=== PATIENT | female | born 1950 | race Caucasian/White ===

== ENCOUNTER → 2020-04-18 09:53 | Outpatient (BNV) | payer MEDICARE, SELFPAY | PROVIDERS: Visit Provider Internal Medicine Medical Oncology | DX: Z86.711 Personal history of pulmonary embolism (principal); Z79.01 Long term (current) use of anticoagulants | CPT/HCPCS: 99213; 99214 ==

== ENCOUNTER → 2020-04-25 15:58 | Outpatient (BNVA) | payer MEDICARE, SELFPAY | PROVIDERS: PCP Internal Medicine; Visit Provider Internal Medicine | DX: I26.99 Other pulmonary embolism without acute cor pulmonale (principal); Z51.81 Encounter for therapeutic drug level monitoring; Z79.01 Long term (current) use of anticoagulants | CPT/HCPCS: 85610; 99211 ==

== ENCOUNTER 2020-05-20 10:58 | Emergency (ER) | payer MEDICARE, SELFPAY ==
[2020-05-20 11:37] VITALS: BP 151/71; PULSE 77; RESP 16; TEMP 36.1; O2SAT 99; BMI 23.7
--- NOTE | 2020-05-20 11:57 | US_ITS ---
EXAMINATION: US VENOUS ULTRASOUND WITH DOPPLER LOWER EXTREMITY, RIGHT CLINICAL INFORMATION: Posterior knees/calf pain/swelling. COPD COMPARISON: None. TECHNIQUE: Ultrasound of the deep veins is performed from the hip to the calf with compression sonography and color and pulse Doppler assessment. Spectral analysis with color-flow imaging is performed. FINDINGS: There is normal venous compression and respiratory variation and augmented flow. The visualized common femoral vein, superficial femoral vein, profunda femoral vein, popliteal vein, and the trifurcation region shows no evidence of deep venous thrombosis. There is no significant popliteal fossa cyst. If the patient's symptoms persist, followup ultrasound in 5 days 7 days might be of value to exclude proximal propagation from a non-visualized calf vein. US/US venous duplex LE RT IMPRESSION: No DVT demonstrated in the right lower extremity.
--- NOTE | 2020-05-20 11:57 | XR_ITS ---
EXAMINATION: XR KNEE, RIGHT CLINICAL INFORMATION: Knee pain. COMPARISON: None TECHNIQUE: Four views of the right knee. FINDINGS: There is minimal loss of patellofemoral compartment joint space. Medial and lateral compartment joint space is normal. There is mild suprapatellar joint effusion. No visible acute fracture, dislocation or lytic process seen. There is minimal superior patellar and calcified. The soft tissues are normal XR/XR knee RT 4V IMPRESSION: Minimal suprapatellar joint effusion with anterior superior patellar enthesophyte. No visible acute fracture, dislocation or subluxation seen.
--- NOTE | 2020-05-20 12:25 | ED_ITS ---
HPI - Extremity Problem General Chief complaint: Extremity Injury, Lower <YULI Perry - Last Filed: 05/20/20 13:08> Stated complaint: rt knee pain,no inj <YULI Perry - Last Filed: 05/20/20 13:08> Time Seen by Provider: 05/20/20 11:55 <YULI Perry Last Filed: 05/20/20 13:08> Source: patient <YULI Perry Last Filed: 05/20/20 13:08> Mode of arrival: ambulatory <YULI Perry - Last Filed: 05/20/20 13:08> Limitations: no limitations <YULI Perry Last Filed: 05/20/20 13:08> History of Present Illness HPI Narrative: 69yoF c PMHx of diabetes and pulmonary embolism currently on 2.5 mg of warfarin daily and had her last INR checked on the 22 of April which was 3.0 presenting to the ED with complaints of pain and swelling to the right posterior knee no injury. Denies any other symptoms complaints or concerns related to this. <YULI Perry - Last Filed: 05/20/20 13:08> Related Data Home medications: Home Medications Medication Instructions Recorded Confirmed atorvastatin 80 mg PO BEDTIME 04/18/20 05/23/20 fenofibrate nanocrystallized 145 mg PO DAILY 04/18/20 05/23/20 isosorbide mononitrate 60 mg PO DAILY 04/18/20 05/23/20 losartan 100 mg PO DAILY 04/18/20 05/23/20 metformin 1,000 mg PO BID 04/18/20 05/23/20 metoprolol succinate 100 mg PO DAILY 04/18/20 05/23/20 icosapent ethyl 1 gram capsule 2 g PO BID cap 05/23/20 05/23/20 Previous Rx's Medication Instructions Recorded warfarin 5 mg tablet 5 mg PO DAILY #90 tab 04/25/20 acetaminophen-codeine 1 tab PO Q8H PRN #10 tab NS 05/20/20 <YULI Perry Last Filed: 05/20/20 13:08> Allergies/Adverse reactions: Allergies Allergy/AdvReac Type Severity Reaction Status Date / Time No Known Allergies Allergy Verified 05/23/20 09:51 <YULI Perry - Last Filed: 05/20/20 13:08> Review of Systems Review of Systems: Constitutional : No Fever, No Chills Cardiovascular : No Chest Pain, No SOB, No Dyspnea on Exertion, No Orthopnea, No Edema, No Palpitations Respiratory : No Cough, No Sputum, No Dyspnea Musculoskeletal : + joint pain, + Joint Swelling Skin : No Skin Lesions, No rash Neuro : No Weakness, No Paresthesias <YULI Perry - Last Filed: 05/20/20 13:08> Yes all other systems are reviewed and are negative <YULI Perry - Last Filed: 05/20/20 13:08> [facility] Past Medical History Attestation statement: The following information was validated with the patient. <YULI Perry - Last Filed: 05/20/20 13:08> Medical History: Medical History Diabetes H/O blood clots Kidney anomaly, congenital <YULI Perry - Last Filed: 05/20/20 13:08> Surgical History: Surgical History H/O hand surgery H/O: hysterectomy History of cholecystectomy History of tonsillectomy <YULI Perry - Last Filed: 05/20/20 13:08> Physical Exam Vital Signs: Vital Signs: Vital Signs Temp Pulse Resp BP Pulse Ox 05/20/20 11:37 97.0 F 77 16 151/71 H 99 Body Mass Index 23.7 vital signs have been reviewed as normal and appeared to be correct. Blood pressure normal. Heart rate normal. Respiration rate normal. Temperature normal. Oxygen saturation normal. <YULI Perry - Last Filed: 05/20/20 13:08> Vital Signs: Vital Signs Temp Pulse Resp BP Pulse Ox 05/20/20 11:37 97.0 F 77 16 151/71 H 99 Body Mass Index 23.7 <Brian Callahan MD - Last Filed: 05/31/20 01:26> Appearance: Alert. Oriented X3. No acute distress. Head: Normal external exam. Normocephalic. Eyes: PERRLA. EOMI. Conjunctiva and sclera normal. Eyelids normal. ENT: Moist mucous membranes. Neck: Normal inspection. Neck supple. FROM. No meningeal signs. CVS: Normal heart rate and rhythm. Heart sound normal. No murmurs noted. Pulses normal throughout. Respiratory: No respiratory distress. Painless inspiration. Breath sounds normal. No wheezes/rales/rhonchi noted. Chest nontender. No accessory muscle usage noted or decreased air movement noted. Back: Full range of motion noted. Skin: Skin warm and dry. Normal skin color. Normal skin turgor. No rashes/lesions/lacerations noted. Extremities: TTP of posterior Right knee. No lower extremity edema. Extremities exhibit normal range of motion. All other Extremities nontender. Neuro: Oriented X 3. No motor deficit. No sensory deficit. Reflexes normal. <YULI Perry - Last Filed: 05/20/20 13:08> Course Course Course Narrative: 12PM - 69yoF c PMHx of diabetes and pulmonary embolism currently on 2.5 mg of warfarin daily and had her last INR checked on the 22 of April which was 3.0 presenting to the ED with complaints of pain and swelling to the right posterior knee no injury. - Concern for DVT vs cyst vs strain - Plan: US and R knee xray then re-evaluate. <YULI Perry - Last Filed: 05/20/20 13:08> I have reviewed the chart <Brian Callahan MD - Last Filed: 05/31/20 01:26> Reevaluation(s) Reevaluation #1: Ultrasound negative for any DVT or any other acute processes. X-ray revealed small joint effusion with anterior superior patellar enthesophyte. - will DC home with symptomatic treatment along with instructions return if any new or worsening symptoms to follow-up with primary care provider. Patient understands agrees the plan. <YULI Perry - Last Filed: 05/20/20 13:08> Time: 13:08 <YULI Perry - Last Filed: 05/20/20 13:08> MDM - Extremity (Nontraumatic) Medical Records Attestation: I reviewed the patient's medical records. <YULI Perry - Last Filed: 05/20/20 13:08> Imaging Data right knee: Attestation: I personally reviewed and interpreted this imaging study as follows: <YULI Perry Last Filed: 05/20/20 13:08> Radiologist's impression: FINDINGS: There is minimal loss of patellofemoral compartment joint space. Medial and lateral compartment joint space is normal. There is mild suprapatellar joint effusion. No visible acute fracture, dislocation or lytic process seen. There is minimal superior patellar and calcified. The soft tissues are normal XR/XR knee RT 4V IMPRESSION: Minimal suprapatellar joint effusion with anterior superior patellar enthesophyte. No visible acute fracture, dislocation or subluxation seen. <YULI Perry Last Filed: 05/20/20 13:08> right leg venous ultrasound : Attestation: I personally reviewed and interpreted this imaging study as follows: <YULI Perry - Last Filed: 05/20/20 13:08> Radiologist's impression: FINDINGS: There is normal venous compression and respiratory variation and augmented flow. The visualized common femoral vein, superficial femoral vein, profunda femoral vein, popliteal vein, and the trifurcation region shows no evidence of deep venous thrombosis. There is no significant popliteal fossa cyst. If the patient's symptoms persist, followup ultrasound in 5 days 7 days might be of value to exclude proximal propagation from a non-visualized calf vein. US/US venous duplex LE RT IMPRESSION: No DVT demonstrated in the right lower extremity. <YULI Perry Last Filed: 05/20/20 13:08> Discharge Plan Discharge Clinical Impression: Bone spur, Joint effusion <YULI Perry Last Filed: 05/20/20 13:08> Patient Disposition: Home, Self-Care <YULI Perry Last Filed: 05/20/20 13:08> Instructions: Swollen Knee Joint (ED) <YULI Perry Last Filed: 05/20/20 13:08> Prescriptions: New acetaminophen-codeine 300-30 mg tablet 1 tab PO Q8H PRN (Reason: pain) Qty: 10 RF: 0 No Action atorvastatin 80 mg tablet 80 mg PO BEDTIME RF: 0 metoprolol succinate 100 mg tablet extended release 24 hr 100 mg PO DAILY RF: 0 isosorbide mononitrate 60 mg tablet extended release 24 hr 60 mg PO DAILY RF: 0 losartan 100 mg tablet 100 mg PO DAILY RF: 0 metformin 500 mg tablet extended release 24 hr 1,000 mg PO BID RF: 0 fenofibrate nanocrystallized 145 mg tablet 145 mg PO DAILY RF: 0 Vascepa 1 gram capsule 2 g PO BID RF: 0 warfarin 5 mg tablet 5 mg PO DAILY Qty: 90 RF: 0 <YULI Perry - Last Filed: 05/20/20 13:08> Referrals: Juan Francisco Stuart MD [Primary Care Provider] - 2 days <YULI Perry - Last Filed: 05/20/20 13:08> Interventions: ED Discharge Assessment Last Done: 05/20/20 13:19 <YULI Perry - Last Filed: 05/20/20 13:08> Discharge Date/Time: 05/20/20 13:19 <YULI Perry - Last Filed: 05/20/20 13:08> Print Language: [place] <YULI Perry - Last Filed: 05/20/20 13:08>
== END 2020-05-20 13:19 | disposition home or self-care (01) ==
PROVIDERS: Emergency Provider Emergency Medicine; PCP Internal Medicine
DX: M25.561 Pain in right knee (principal); R60.0 Localized edema; Z79.899 Other long term (current) drug therapy; Z79.01 Long term (current) use of anticoagulants; Z86.711 Personal history of pulmonary embolism
CPT/HCPCS: 73564; 93971; 99283; 99284

== ENCOUNTER → 2020-05-23 09:50 | Outpatient (BNVA) | payer MEDICARE, SELFPAY | PROVIDERS: PCP Internal Medicine; Visit Provider Internal Medicine | DX: I26.99 Other pulmonary embolism without acute cor pulmonale (principal); Z51.81 Encounter for therapeutic drug level monitoring; Z79.01 Long term (current) use of anticoagulants | CPT/HCPCS: 85610; 99211 ==

== ENCOUNTER → 2020-06-20 10:02 | Outpatient (BNVA) | payer MEDICARE, SELFPAY | PROVIDERS: PCP Internal Medicine; Visit Provider Internal Medicine | DX: I26.99 Other pulmonary embolism without acute cor pulmonale (principal); Z51.81 Encounter for therapeutic drug level monitoring; Z79.01 Long term (current) use of anticoagulants | CPT/HCPCS: 85610; 99211 ==

== ENCOUNTER 2020-07-08 09:27 | Outpatient (REF) | payer MEDICARE, SELFPAY ==
[2020-07-08 10:43] LABS: Cholesterol 137 mg/dL; HDL Cholesterol 23 mg/dL; Triglycerides 521 mg/dL
== END 2020-07-08 09:28 | disposition home or self-care (01) ==
LOC: HO.LAB 09:27
PROVIDERS: PCP Internal Medicine; Visit Provider Internal Medicine Cardiovascular Disease
DX: I25.10 Atherosclerotic heart disease of native coronary artery without angina pectoris (principal)
CPT/HCPCS: 80061

== ENCOUNTER → 2020-07-09 12:46 | Outpatient (BNVA) | payer MEDICARE, SELFPAY | PROVIDERS: PCP Internal Medicine; Visit Provider Internal Medicine Cardiovascular Disease | DX: I25.10 Atherosclerotic heart disease of native coronary artery without angina pectoris (principal); E78.2 Mixed hyperlipidemia; E11.9 Type 2 diabetes mellitus without complications; F17.200 Nicotine dependence, unspecified, uncomplicated; Z79.01 Long term (current) use of anticoagulants; Z86.718 Personal history of other venous thrombosis and embolism | CPT/HCPCS: 99212 ==

== ENCOUNTER → 2020-07-25 09:53 | Outpatient (BNVA) | payer MEDICARE, SELFPAY | PROVIDERS: PCP Internal Medicine; Visit Provider Internal Medicine | DX: I26.99 Other pulmonary embolism without acute cor pulmonale (principal); Z79.01 Long term (current) use of anticoagulants; Z51.81 Encounter for therapeutic drug level monitoring | CPT/HCPCS: 85610; 99211 ==

== ENCOUNTER → 2020-08-22 09:51 | Outpatient (BNVA) | payer MEDICARE, SELFPAY | PROVIDERS: PCP Internal Medicine; Visit Provider Internal Medicine | DX: I26.99 Other pulmonary embolism without acute cor pulmonale (principal); Z51.81 Encounter for therapeutic drug level monitoring; Z79.01 Long term (current) use of anticoagulants | CPT/HCPCS: 85610; 99211 ==

== ENCOUNTER → 2020-09-19 09:41 | Outpatient (BNVA) | payer MEDICARE, SELFPAY | PROVIDERS: PCP Internal Medicine; Visit Provider Internal Medicine | DX: I26.99 Other pulmonary embolism without acute cor pulmonale (principal); Z51.81 Encounter for therapeutic drug level monitoring; Z79.01 Long term (current) use of anticoagulants | CPT/HCPCS: 85610; 99211 ==

== ENCOUNTER → 2020-10-03 10:03 | Outpatient (BNVA) | payer MEDICARE, SELFPAY | PROVIDERS: PCP Internal Medicine; Visit Provider Internal Medicine | DX: I26.99 Other pulmonary embolism without acute cor pulmonale (principal); Z51.81 Encounter for therapeutic drug level monitoring; Z79.01 Long term (current) use of anticoagulants | CPT/HCPCS: 85610; 99211 ==

== ENCOUNTER → 2020-10-31 09:58 | Outpatient (BNVA) | payer MEDICARE, SELFPAY | PROVIDERS: PCP Internal Medicine; Visit Provider Internal Medicine | DX: I26.99 Other pulmonary embolism without acute cor pulmonale (principal); Z79.01 Long term (current) use of anticoagulants; Z51.81 Encounter for therapeutic drug level monitoring | CPT/HCPCS: 85610; 99211 ==

== ENCOUNTER → 2020-11-28 09:53 | Outpatient (BNVA) | payer MEDICARE, SELFPAY | PROVIDERS: PCP Internal Medicine; Visit Provider Internal Medicine | DX: I26.99 Other pulmonary embolism without acute cor pulmonale (principal); Z51.81 Encounter for therapeutic drug level monitoring; Z79.01 Long term (current) use of anticoagulants | CPT/HCPCS: 85610; 99211 ==

== ENCOUNTER 2020-12-05 14:42 | Outpatient (REF) | payer MEDICARE, SELFPAY ==
[2020-12-05 16:29] LABS: Alanine Aminotransferase 21 U/L (0-31); Albumin Level 4.3 g/dL (3.5-5.0); Alkaline Phosphatase 58 U/L (39-117); Anion Gap 13 (12-20); Aspartate Amino Transferase 27 U/L (5-31); Bilirubin Total 0.7 mg/dL (0.0-1.0); Blood Urea Nitrogen 16 mg/dL (9-16); Calcium 9.4 mg/dL (8.4-10.2); Carbon Dioxide 24 mmol/L (22-29); Chloride 102 mmol/L (96-108); Cholesterol 144 mg/dL; Estimated Glomerular Filt Rate > 60; Glucose Random 83 mg/dL (60-115); HDL Cholesterol 24 mg/dL; Potassium 4.4 mmol/L (3.3-5.1); Sodium 135 mmol/L (135-145); Total Protein 7.3 g/dL (6.5-8.0); Triglycerides 664 mg/dL
[2020-12-05 17:11] LABS: Creatinine Urine 84.99 mg/dL; Microalbum/Creatinine Ratio Ur 5.8 ug/mg cr
[2020-12-06 04:05] LABS: Estimated Average Glucose 103 mg/dL; Hemoglobin A1c % 5.2 %
[2020-12-06 12:12] LABS: LDL Cholesterol Direct 40 mg/dL (<100)
[2020-12-10 21:22] LABS: Apolipoprotein B 88 mg/dL (<90)
[2020-12-10 22:16] LABS: Lipoprotein A <10 nmol/L (<75)
== END 2020-12-05 14:43 | disposition home or self-care (01) ==
LOC: HO.LAB 14:42
PROVIDERS: PCP Internal Medicine; Visit Provider Internal Medicine
DX: E11.9 Type 2 diabetes mellitus without complications (principal); E78.1 Pure hyperglyceridemia; E78.5 Hyperlipidemia, unspecified; I10 Essential (primary) hypertension; Z79.01 Long term (current) use of anticoagulants; Z79.899 Other long term (current) drug therapy
CPT/HCPCS: 36415; 80053; 80061; 82043; 82172; 82947; 83036; 83695; 83721; 99202

== ENCOUNTER → 2020-12-11 10:02 | Outpatient (BNVA) | payer MEDICARE, SELFPAY | PROVIDERS: PCP Internal Medicine; Visit Provider Internal Medicine | DX: I26.99 Other pulmonary embolism without acute cor pulmonale (principal); Z51.81 Encounter for therapeutic drug level monitoring; Z79.01 Long term (current) use of anticoagulants | CPT/HCPCS: 85610; 99211 ==

== ENCOUNTER → 2020-12-25 09:59 | Outpatient (BNVA) | payer MEDICARE, SELFPAY | PROVIDERS: PCP Internal Medicine; Visit Provider Internal Medicine | DX: I26.99 Other pulmonary embolism without acute cor pulmonale (principal); Z51.81 Encounter for therapeutic drug level monitoring; Z79.01 Long term (current) use of anticoagulants | CPT/HCPCS: 85610; 99211 ==

== ENCOUNTER → 2021-01-07 09:50 | Outpatient (BNVA) | payer MEDICARE, SELFPAY | PROVIDERS: PCP Internal Medicine; Referring Provider Internal Medicine; Visit Provider Internal Medicine Cardiovascular Disease | DX: I25.10 Atherosclerotic heart disease of native coronary artery without angina pectoris (principal); E78.2 Mixed hyperlipidemia | CPT/HCPCS: 93005; 99212 ==

== ENCOUNTER → 2021-01-16 09:52 | Outpatient (BNVA) | payer MEDICARE, SELFPAY | PROVIDERS: PCP Internal Medicine; Visit Provider Internal Medicine | DX: I26.99 Other pulmonary embolism without acute cor pulmonale (principal); Z51.81 Encounter for therapeutic drug level monitoring; Z79.01 Long term (current) use of anticoagulants | CPT/HCPCS: 85610; 99211 ==

== ENCOUNTER → 2021-02-17 09:59 | Outpatient (BNVA) | payer MEDICARE, SELFPAY | PROVIDERS: PCP Internal Medicine; Visit Provider Internal Medicine | DX: I26.99 Other pulmonary embolism without acute cor pulmonale (principal); Z51.81 Encounter for therapeutic drug level monitoring; Z79.01 Long term (current) use of anticoagulants | CPT/HCPCS: 85610; 99211 ==

== ENCOUNTER → 2021-02-21 09:11 | Outpatient (BNVA) | payer MEDICARE, SELFPAY | PROVIDERS: PCP Internal Medicine; Visit Provider Internal Medicine | DX: I26.99 Other pulmonary embolism without acute cor pulmonale (principal); Z51.81 Encounter for therapeutic drug level monitoring; Z79.01 Long term (current) use of anticoagulants | CPT/HCPCS: 85610; 99211 ==

== ENCOUNTER → 2021-02-28 10:00 | Outpatient (BNVA) | payer MEDICARE, SELFPAY | PROVIDERS: PCP Internal Medicine; Visit Provider Internal Medicine | DX: I26.99 Other pulmonary embolism without acute cor pulmonale (principal); Z51.81 Encounter for therapeutic drug level monitoring; Z79.01 Long term (current) use of anticoagulants | CPT/HCPCS: 85610; 99211 ==

== ENCOUNTER → 2021-03-14 09:59 | Outpatient (BNVA) | payer MEDICARE, SELFPAY | PROVIDERS: PCP Internal Medicine; Visit Provider Internal Medicine | DX: I26.99 Other pulmonary embolism without acute cor pulmonale (principal); Z51.81 Encounter for therapeutic drug level monitoring; Z79.01 Long term (current) use of anticoagulants | CPT/HCPCS: 85610; 99211 ==

== ENCOUNTER → 2021-03-21 10:11 | Outpatient (BNVA) | payer MEDICARE, SELFPAY | PROVIDERS: PCP Internal Medicine; Visit Provider Internal Medicine | DX: I26.99 Other pulmonary embolism without acute cor pulmonale (principal); Z51.81 Encounter for therapeutic drug level monitoring; Z79.01 Long term (current) use of anticoagulants | CPT/HCPCS: 85610; 99211 ==

== ENCOUNTER → 2021-04-04 09:56 | Outpatient (BNVA) | payer MEDICARE, SELFPAY | PROVIDERS: PCP Internal Medicine; Visit Provider Internal Medicine | DX: I26.99 Other pulmonary embolism without acute cor pulmonale (principal); Z51.81 Encounter for therapeutic drug level monitoring; Z79.01 Long term (current) use of anticoagulants | CPT/HCPCS: 85610; 99211 ==

== ENCOUNTER → 2021-04-17 10:29 | Outpatient (BNVA) | payer MEDICARE, SELFPAY | PROVIDERS: PCP Internal Medicine; Visit Provider Internal Medicine | DX: I26.99 Other pulmonary embolism without acute cor pulmonale (principal); Z51.81 Encounter for therapeutic drug level monitoring; Z79.01 Long term (current) use of anticoagulants | CPT/HCPCS: 85610; 99211 ==

== ENCOUNTER → 2021-05-01 10:25 | Outpatient (BNVA) | payer MEDICARE, SELFPAY | PROVIDERS: PCP Internal Medicine; Visit Provider Internal Medicine | DX: I26.99 Other pulmonary embolism without acute cor pulmonale (principal); Z51.81 Encounter for therapeutic drug level monitoring; Z79.01 Long term (current) use of anticoagulants | CPT/HCPCS: 85610; 99211 ==

== ENCOUNTER → 2021-05-15 10:33 | Outpatient (BNVA) | payer MEDICARE, SELFPAY | PROVIDERS: PCP Internal Medicine; Visit Provider Internal Medicine | DX: I26.99 Other pulmonary embolism without acute cor pulmonale (principal); Z51.81 Encounter for therapeutic drug level monitoring; Z79.01 Long term (current) use of anticoagulants | CPT/HCPCS: 85610; 99211 ==

== ENCOUNTER → 2021-05-20 09:27 | Outpatient (BNVA) | payer MEDICARE, SELFPAY | PROVIDERS: PCP Internal Medicine; Visit Provider Internal Medicine | DX: I26.99 Other pulmonary embolism without acute cor pulmonale (principal); Z51.81 Encounter for therapeutic drug level monitoring; Z79.01 Long term (current) use of anticoagulants | CPT/HCPCS: 85610; 99211 ==

== ENCOUNTER → 2021-06-24 09:05 | Outpatient (BNVA) | payer MEDICARE, SELFPAY | PROVIDERS: PCP Internal Medicine; Visit Provider Internal Medicine | DX: I25.10 Atherosclerotic heart disease of native coronary artery without angina pectoris (principal); E78.2 Mixed hyperlipidemia; I26.99 Other pulmonary embolism without acute cor pulmonale; Z79.899 Other long term (current) drug therapy; Z51.81 Encounter for therapeutic drug level monitoring; Z79.01 Long term (current) use of anticoagulants | CPT/HCPCS: 85610; 99211; 99212 ==

== ENCOUNTER 2021-07-04 09:00 | Outpatient (REF) | payer MEDICARE, SELFPAY ==
[2021-07-04 10:29] LABS: Cholesterol 161 mg/dL; HDL Cholesterol 24 mg/dL; Triglycerides 605 mg/dL
== END 2021-07-04 09:01 | disposition home or self-care (01) ==
LOC: HO.LAB 09:00
PROVIDERS: PCP Internal Medicine; Visit Provider Internal Medicine Cardiovascular Disease
DX: I25.10 Atherosclerotic heart disease of native coronary artery without angina pectoris (principal); E78.2 Mixed hyperlipidemia
CPT/HCPCS: 36415; 80061

== ENCOUNTER → 2021-07-22 08:52 | Outpatient (BNVA) | payer MEDICARE, SELFPAY | PROVIDERS: PCP Internal Medicine; Visit Provider Internal Medicine | DX: I26.99 Other pulmonary embolism without acute cor pulmonale (principal); Z51.81 Encounter for therapeutic drug level monitoring; Z79.01 Long term (current) use of anticoagulants | CPT/HCPCS: 85610; 99211 ==

== ENCOUNTER 2021-07-24 09:47 | Outpatient (REF) | payer MEDICARE, SELFPAY ==
[2021-07-24 10:41] LABS: IDNOW Serial# 16C4AD1C
[2021-07-24 10:42] LABS: COVID-19 Test Negative (Negative)
== END 2021-07-24 09:48 | disposition home or self-care (01) ==
LOC: HO.LAB 09:47
PROVIDERS: Visit Provider Internal Medicine
DX: Z20.822 Contact with and (suspected) exposure to COVID-19 (principal)
CPT/HCPCS: 87635; C9803

== ENCOUNTER → 2021-07-29 09:50 | Outpatient (BNVA) | payer MEDICARE, SELFPAY | PROVIDERS: PCP Internal Medicine; Visit Provider Internal Medicine | DX: I26.99 Other pulmonary embolism without acute cor pulmonale (principal); Z51.81 Encounter for therapeutic drug level monitoring; Z79.01 Long term (current) use of anticoagulants | CPT/HCPCS: 85610; 99211 ==

== ENCOUNTER → 2021-08-12 09:53 | Outpatient (BNVA) | payer MEDICARE, SELFPAY | PROVIDERS: PCP Internal Medicine; Visit Provider Internal Medicine | DX: I26.99 Other pulmonary embolism without acute cor pulmonale (principal); Z51.81 Encounter for therapeutic drug level monitoring; Z79.01 Long term (current) use of anticoagulants | CPT/HCPCS: 85610; 99211 ==

== ENCOUNTER → 2021-08-26 10:17 | Outpatient (BNVA) | payer MEDICARE, SELFPAY | PROVIDERS: PCP Internal Medicine; Visit Provider Internal Medicine | DX: I26.99 Other pulmonary embolism without acute cor pulmonale (principal); Z51.81 Encounter for therapeutic drug level monitoring; Z79.01 Long term (current) use of anticoagulants | CPT/HCPCS: 85610; 99211 ==

== ENCOUNTER 2021-09-11 11:09 | Outpatient (REF) | payer MEDICARE, SELFPAY ==
--- NOTE | ~2021-09-11 | CT_ITS ---
EXAMINATION: CT CHEST SCREENING CLINICAL INFORMATION: Nicotine dependence. Current smoker. 55-pack year history. COMPARISON: Previous chest CT, most recent February 2020. TECHNIQUE: Multidetector volumetric CT imaging of the chest is performed without contrast using low dose technique. Additional 2D coronal and sagittal reformatted images and axial 3D maximum intensity projection (MIP) images are generated on the CT workstation. This CT examination was performed using dose optimization techniques as appropriate, variously including the following: *Automated exposure control *Adjustment of mA and/or kV according to patient size (this includes techniques or standardized protocols for targeted exams where dose is matched to indication/reason for exam; i.e. extremities or head) *Use of iterative reconstruction technique DLP: 48 mGy-cm FINDINGS: LUNGS: There is evidence of severe emphysema. There are scattered areas of cystic change and increased ground-glass attenuation seen throughout the lungs, predominantly peripherally and at the lung bases. This appears increased from previous exam. There is a 3 mm right upper lobe nodule axial image 184 series 5 and 197 series 5. There is a small 2 mm peripheral or subpleural right upper lobe nodule axial image 203 series 5. There is a 2 mm calcified right upper lobe nodule axial image 213 series 5. In retrospect, these do not appear appreciably changed. No endobronchial or endotracheal lesion is seen. MEDIASTINUM: There are small mediastinal lymph nodes. No enlarged lymph nodes are seen. There is [id number] coronary artery calcification. The heart does not appear enlarged. There is no pericardial effusion. The thoracic aorta is normal in caliber. PLEURA: There is no pleural effusion. No pleural mass or thickening. AXILLA: No lymphadenopathy. UPPER ABDOMEN: Left kidney appears atrophic. There are small bilateral renal calcifications suggestive of stones. The spleen appears prominent. OSSEOUS STRUCTURES: Unremarkable. CT/CT lung screening IMPRESSION: Severe emphysema. Innumerable cystic and ground-glass attenuation areas seen throughout the lungs, greatest peripherally and in the lower lungs. This appears increased from most recent exam from 2019. Small right upper lobe nodules that are stable. Coronary artery calcification. Stable abdominal findings. ASSESSMENT: Lung-RADS category 2: Benign. RECOMMENDATION: Annual low-dose chest CT follow-up recommended.
== END 2021-09-11 11:10 | disposition home or self-care (01) ==
LOC: HO.CT 11:09
PROVIDERS: PCP Internal Medicine; Visit Provider Physician Assistant Medical
DX: Z12.2 Encounter for screening for malignant neoplasm of respiratory organs (principal); F17.210 Nicotine dependence, cigarettes, uncomplicated
CPT/HCPCS: 71271

== ENCOUNTER → 2021-09-16 10:30 | Outpatient (BNVA) | payer MEDICARE, SELFPAY | PROVIDERS: PCP Internal Medicine; Visit Provider Internal Medicine | DX: I26.99 Other pulmonary embolism without acute cor pulmonale (principal); Z51.81 Encounter for therapeutic drug level monitoring; Z79.01 Long term (current) use of anticoagulants | CPT/HCPCS: 85610; 99211 ==

== ENCOUNTER → 2021-10-10 09:50 | Outpatient (BNVA) | payer MEDICARE, SELFPAY | PROVIDERS: PCP Internal Medicine; Visit Provider Internal Medicine | DX: I26.99 Other pulmonary embolism without acute cor pulmonale (principal); Z51.81 Encounter for therapeutic drug level monitoring; Z79.01 Long term (current) use of anticoagulants | CPT/HCPCS: 85610; 99211 ==

== ENCOUNTER → 2021-11-07 10:08 | Outpatient (BNVA) | payer MEDICARE, SELFPAY | PROVIDERS: PCP Internal Medicine; Visit Provider Internal Medicine | DX: I26.99 Other pulmonary embolism without acute cor pulmonale (principal); Z79.01 Long term (current) use of anticoagulants; Z51.81 Encounter for therapeutic drug level monitoring | CPT/HCPCS: 85610; 99211 ==

== ENCOUNTER → 2021-12-05 10:02 | Outpatient (BNVA) | payer MEDICARE, SELFPAY | PROVIDERS: PCP Internal Medicine; Visit Provider Internal Medicine | DX: I26.99 Other pulmonary embolism without acute cor pulmonale (principal); Z79.01 Long term (current) use of anticoagulants; Z51.81 Encounter for therapeutic drug level monitoring | CPT/HCPCS: 85610; 99211 ==

== ENCOUNTER → 2022-01-02 10:00 | Outpatient (BNVA) | payer MEDICARE, SELFPAY | PROVIDERS: PCP Internal Medicine; Visit Provider Internal Medicine | DX: I26.99 Other pulmonary embolism without acute cor pulmonale (principal); Z79.01 Long term (current) use of anticoagulants; Z51.81 Encounter for therapeutic drug level monitoring | CPT/HCPCS: 85610; G0248 ==

== ENCOUNTER → 2022-02-19 09:04 | Outpatient (BNVA) | payer MEDICARE, SELFPAY | PROVIDERS: PCP Internal Medicine; Visit Provider Internal Medicine | DX: I26.99 Other pulmonary embolism without acute cor pulmonale (principal); Z79.01 Long term (current) use of anticoagulants; Z51.81 Encounter for therapeutic drug level monitoring | CPT/HCPCS: Q3014 ==

== ENCOUNTER → 2022-03-12 13:43 | Outpatient (BNVA) | payer MEDICARE, SELFPAY | PROVIDERS: PCP Internal Medicine; Visit Provider Internal Medicine | DX: I26.99 Other pulmonary embolism without acute cor pulmonale (principal); Z79.01 Long term (current) use of anticoagulants; Z51.81 Encounter for therapeutic drug level monitoring | CPT/HCPCS: Q3014 ==

== ENCOUNTER 2022-03-30 12:20 | Outpatient (REF) | payer MEDICARE, SELFPAY ==
[2022-03-30 13:17] LABS: Anion Gap 14 (12-20); Blood Urea Nitrogen 14 mg/dL (9-16); Calcium 9.4 mg/dL (8.4-10.2); Carbon Dioxide 25 mmol/L (22-29); Chloride 99 mmol/L (96-108); Estimated Glomerular Filt Rate > 60; Potassium 4.3 mmol/L (3.3-5.1); Sodium 134 mmol/L (135-145)
== END 2022-03-30 12:21 | disposition home or self-care (01) ==
LOC: HO.LAB 12:20
PROVIDERS: PCP Internal Medicine; Visit Provider Internal Medicine Nephrology
DX: N26.1 Atrophy of kidney (terminal) (principal); I10 Essential (primary) hypertension
CPT/HCPCS: 36415; 80051; 82310; 82565; 84520

== ENCOUNTER → 2022-04-23 09:28 | Outpatient (BNVA) | payer MEDICARE, SELFPAY | PROVIDERS: PCP Internal Medicine; Visit Provider Internal Medicine | DX: I26.99 Other pulmonary embolism without acute cor pulmonale (principal); Z79.01 Long term (current) use of anticoagulants; Z51.81 Encounter for therapeutic drug level monitoring | CPT/HCPCS: Q3014 ==

== ENCOUNTER → 2022-05-25 10:20 | Outpatient (BNVA) | payer MEDICARE, SELFPAY | PROVIDERS: PCP Internal Medicine; Visit Provider Internal Medicine | DX: I26.99 Other pulmonary embolism without acute cor pulmonale (principal); Z79.01 Long term (current) use of anticoagulants; Z51.81 Encounter for therapeutic drug level monitoring | CPT/HCPCS: 85610; 99211 ==

== ENCOUNTER → 2022-06-29 09:58 | Outpatient (BNVA) | payer MEDICARE, SELFPAY | PROVIDERS: PCP Internal Medicine; Referring Provider Internal Medicine; Visit Provider Internal Medicine Cardiovascular Disease | DX: I25.10 Atherosclerotic heart disease of native coronary artery without angina pectoris (principal); E78.2 Mixed hyperlipidemia; Z79.899 Other long term (current) drug therapy | CPT/HCPCS: 93005; 99212 ==

== ENCOUNTER → 2022-07-09 11:06 | Outpatient (BNVA) | payer MEDICARE, SELFPAY | PROVIDERS: PCP Internal Medicine; Visit Provider Internal Medicine | DX: Z79.01 Long term (current) use of anticoagulants (principal) ==

== ENCOUNTER → 2022-07-23 09:35 | Outpatient (BNVA) | payer MEDICARE, SELFPAY | PROVIDERS: PCP Internal Medicine; Visit Provider Internal Medicine | DX: Z79.01 Long term (current) use of anticoagulants (principal) ==

== ENCOUNTER 2022-07-25 15:53 | Emergency (ER) | payer MEDICARE, SELFPAY ==
--- NOTE | ~2022-07-25 | XR_ITS ---
EXAMINATION: XR shoulder LT min 2V, XR ribs LT min 3V w CXR1V, XR humerus LT, XR elbow LT 2V CLINICAL INFORMATION: Reason for Exam fall, pain COMPARISON: None. TECHNIQUE: AP chest, 3 view series left ribs; 2 view series left elbow; AP and lateral radiographs of the left humerus; 3 view series left shoulder. FINDINGS: Left shoulder and left humerus: A displaced fracture of the greater tubercle of the left humeral head is noted. Vague transverse lucency and focal cortical irregularity of the medial surgical neck of the humerus is present suspicious for a minimally displaced transverse fracture of the humeral neck. No associated erosive osseous lesions. Lateral humeral alignment is grossly normal. The acromioclavicular joint spacing and alignment are normal. The visualized left ribs are intact. Left elbow: Left elbow radiographs are suboptimally oriented. No definitive fractures or gross subluxations making allowances for suboptimal images. Mild enthesopathic changes at the olecranon. Left rib series: No left rib fractures or suspicious left rib lesions identified. CHEST: Clip heart mild aortic calcific atherosclerosis. No effusions or pneumothoraces. No focal pulmonary consolidation. Normal pattern of pulmonary vasculature. XR/XR humerus LT IMPRESSION: Left shoulder and left humerus: 1. Displaced fracture of the greater tubercle of the left humeral head. 2. Findings suspicious for a minimally displaced transverse fracture of the surgical neck of the humerus. LEFT ELBOW: 1. Suboptimal images of the left elbow secondary to suboptimal radiographic positioning/orientation. No gross fractures or malalignments identified. If clinical concern is present for possible minimally displaced fractures or subluxations of the left elbow, recommend repeat radiographs of the left elbow. Chest and left rib series: 1. No acute cardiopulmonary abnormalities. 2. No left rib fractures identified.
--- NOTE | ~2022-07-25 | XR_ITS ---
EXAMINATION: XR shoulder LT min 2V, XR ribs LT min 3V w CXR1V, XR humerus LT, XR elbow LT 2V CLINICAL INFORMATION: Reason for Exam fall, pain COMPARISON: None. TECHNIQUE: AP chest, 3 view series left ribs; 2 view series left elbow; AP and lateral radiographs of the left humerus; 3 view series left shoulder. FINDINGS: Left shoulder and left humerus: A displaced fracture of the greater tubercle of the left humeral head is noted. Vague transverse lucency and focal cortical irregularity of the medial surgical neck of the humerus is present suspicious for a minimally displaced transverse fracture of the humeral neck. No associated erosive osseous lesions. Lateral humeral alignment is grossly normal. The acromioclavicular joint spacing and alignment are normal. The visualized left ribs are intact. Left elbow: Left elbow radiographs are suboptimally oriented. No definitive fractures or gross subluxations making allowances for suboptimal images. Mild enthesopathic changes at the olecranon. Left rib series: No left rib fractures or suspicious left rib lesions identified. CHEST: Clip heart mild aortic calcific atherosclerosis. No effusions or pneumothoraces. No focal pulmonary consolidation. Normal pattern of pulmonary vasculature. XR/XR ribs LT min 3V w CXR1V IMPRESSION: Left shoulder and left humerus: 1. Displaced fracture of the greater tubercle of the left humeral head. 2. Findings suspicious for a minimally displaced transverse fracture of the surgical neck of the humerus. LEFT ELBOW: 1. Suboptimal images of the left elbow secondary to suboptimal radiographic positioning/orientation. No gross fractures or malalignments identified. If clinical concern is present for possible minimally displaced fractures or subluxations of the left elbow, recommend repeat radiographs of the left elbow. Chest and left rib series: 1. No acute cardiopulmonary abnormalities. 2. No left rib fractures identified.
--- NOTE | ~2022-07-25 | XR_ITS ---
EXAMINATION: XR shoulder LT min 2V, XR ribs LT min 3V w CXR1V, XR humerus LT, XR elbow LT 2V CLINICAL INFORMATION: Reason for Exam fall, pain COMPARISON: None. TECHNIQUE: AP chest, 3 view series left ribs; 2 view series left elbow; AP and lateral radiographs of the left humerus; 3 view series left shoulder. FINDINGS: Left shoulder and left humerus: A displaced fracture of the greater tubercle of the left humeral head is noted. Vague transverse lucency and focal cortical irregularity of the medial surgical neck of the humerus is present suspicious for a minimally displaced transverse fracture of the humeral neck. No associated erosive osseous lesions. Lateral humeral alignment is grossly normal. The acromioclavicular joint spacing and alignment are normal. The visualized left ribs are intact. Left elbow: Left elbow radiographs are suboptimally oriented. No definitive fractures or gross subluxations making allowances for suboptimal images. Mild enthesopathic changes at the olecranon. Left rib series: No left rib fractures or suspicious left rib lesions identified. CHEST: Clip heart mild aortic calcific atherosclerosis. No effusions or pneumothoraces. No focal pulmonary consolidation. Normal pattern of pulmonary vasculature. XR/XR elbow LT 2V IMPRESSION: Left shoulder and left humerus: 1. Displaced fracture of the greater tubercle of the left humeral head. 2. Findings suspicious for a minimally displaced transverse fracture of the surgical neck of the humerus. LEFT ELBOW: 1. Suboptimal images of the left elbow secondary to suboptimal radiographic positioning/orientation. No gross fractures or malalignments identified. If clinical concern is present for possible minimally displaced fractures or subluxations of the left elbow, recommend repeat radiographs of the left elbow. Chest and left rib series: 1. No acute cardiopulmonary abnormalities. 2. No left rib fractures identified.
--- NOTE | ~2022-07-25 | XR_ITS ---
EXAMINATION: XR shoulder LT min 2V, XR ribs LT min 3V w CXR1V, XR humerus LT, XR elbow LT 2V CLINICAL INFORMATION: Reason for Exam fall, pain COMPARISON: None. TECHNIQUE: AP chest, 3 view series left ribs; 2 view series left elbow; AP and lateral radiographs of the left humerus; 3 view series left shoulder. FINDINGS: Left shoulder and left humerus: A displaced fracture of the greater tubercle of the left humeral head is noted. Vague transverse lucency and focal cortical irregularity of the medial surgical neck of the humerus is present suspicious for a minimally displaced transverse fracture of the humeral neck. No associated erosive osseous lesions. Lateral humeral alignment is grossly normal. The acromioclavicular joint spacing and alignment are normal. The visualized left ribs are intact. Left elbow: Left elbow radiographs are suboptimally oriented. No definitive fractures or gross subluxations making allowances for suboptimal images. Mild enthesopathic changes at the olecranon. Left rib series: No left rib fractures or suspicious left rib lesions identified. CHEST: Clip heart mild aortic calcific atherosclerosis. No effusions or pneumothoraces. No focal pulmonary consolidation. Normal pattern of pulmonary vasculature. XR/XR shoulder LT min 2V IMPRESSION: Left shoulder and left humerus: 1. Displaced fracture of the greater tubercle of the left humeral head. 2. Findings suspicious for a minimally displaced transverse fracture of the surgical neck of the humerus. LEFT ELBOW: 1. Suboptimal images of the left elbow secondary to suboptimal radiographic positioning/orientation. No gross fractures or malalignments identified. If clinical concern is present for possible minimally displaced fractures or subluxations of the left elbow, recommend repeat radiographs of the left elbow. Chest and left rib series: 1. No acute cardiopulmonary abnormalities. 2. No left rib fractures identified.
[2022-07-25 16:01] VITALS: BP 160/61; PULSE 100; RESP 18; TEMP 36.1; O2SAT 99; BMI 23.0
--- NOTE | 2022-07-25 16:02 | ED.GENADULT ---
HPI - General Adult General Chief complaint: Extremity Injury, Upper <YULI Carvajal - Last Filed: 07/25/22 16:05> Stated complaint: fell left shoulder and rib pain <YULI Carvajal - Last Filed: 07/25/22 16:05> Time Seen by Provider: 07/25/22 16:36 <YULI Carvajal - Last Filed: 07/25/22 16:05> Source: patient <Li Obando NP - Last Filed: 07/25/22 18:05> Mode of arrival: ambulatory <Li Obando NP - Last Filed: 07/25/22 18:05> Limitations: no limitations <Li Obando NP - Last Filed: 07/25/22 18:05> History of Present Illness HPI narrative: 71-year-old female presents with injury sustained from a fall. Patient states that she has left shoulder and left chest wall pain after falling while bowling today. She does not report hitting her head, denies loss of consciousness, and states to have limited range of motion to the left upper extremity. she is able to move all of her digits without difficulty. She does not report any prodromal events prior to the fall. <Li Obando NP - Last Filed: 07/25/22 18:05> Onset (ago): hour(s) (Within the hour of arrival) <Li Obando NP - Last Filed: 07/25/22 18:05> Location: left and upper extremity <Li Obando NP - Last Filed: 07/25/22 18:05> Radiation: non-radiation <Li Obando NP - Last Filed: 07/25/22 18:05> Severity: severe <Li Obando NP - Last Filed: 07/25/22 18:05> Severity scale (1-10): 10 <Li Obando NP - Last Filed: 07/25/22 18:05> Quality: aching and constant <Li Obando NP - Last Filed: 07/25/22 18:05> Pain Consistency: constant <Li Obando NP - Last Filed: 07/25/22 18:05> Relieving factors: none <Li Obando NP - Last Filed: 07/25/22 18:05> Exacerbating factors: movement <Li Obando NP - Last Filed: 07/25/22 18:05> Associated symptoms: denies other symptoms <Li Obando NP - Last Filed: 07/25/22 18:05> Related Data Home medications: Home Medications Medication Instructions Recorded Confirmed atorvastatin 80 mg tablet 80 mg PO BEDTIME 04/18/20 07/02/22 losartan 100 mg tablet 100 mg PO DAILY 04/18/20 07/02/22 metformin 500 mg tablet,extended 1,000 mg PO BID 04/18/20 07/02/22 release 24 hr metoprolol succinate 100 mg 100 mg PO DAILY 04/18/20 07/02/22 tablet,extended release 24 hr blood sugar diagnostic #10 ea 12/05/20 07/02/22 clobetasol 0.05 % topical ointment 0.05 g topical BID 12/05/20 07/02/22 COVID-19 antigen test (Flowflex #1 ea 10/10/21 07/02/22 COVID-19 Antigen Home Test kit) omega-3 acid ethyl esters 1 gram 2 cap PO BID 10/10/21 07/02/22 capsule cholecalciferol (vitamin D3) 1,250 1,250 mcg PO QWEEK 03/26/22 07/02/22 mcg (50,000 unit) capsule fenofibrate 160 mg tablet 160 mg PO DAILY 05/25/22 07/02/22 Previous Rx's Medication Instructions Recorded warfarin 5 mg tablet 5 mg PO DAILY #90 tabs 01/16/22 isosorbide mononitrate 60 mg 60 mg PO DAILY #90 tabs 05/15/22 tablet,extended release 24 hr icosapent ethyl 1 gram capsule 2 g PO BID #120 caps 06/29/22 (Vascepa) oxycodone 5 mg tablet 5 mg PO Q4H PRN pain 3 days #18 07/25/22 tabs <YULI Carvajal - Last Filed: 07/25/22 16:05> Allergies/adverse reactions: Allergies Allergy/AdvReac Type Severity Reaction Status Date / Time No Known Allergies Allergy Verified 07/23/22 09:46 <YULI Carvajal - Last Filed: 07/25/22 16:05> Review of Systems Review of Systems: Constitutional: No Fever, No Chills Cardiovascular: Positive left Chest wall Pain, No SOB Respiratory: No Cough, No Dyspnea Gastrointestinal: No Nausea, No Vomiting, No Diarrhea, No abdominal Pain Musculoskeletal: positive left upper arm and shoulder pain, No Myalgias, No Joint Swelling Skin: No Skin lacerations, No rash Neuro: No Weakness, No Numbness, No Paresthesias, No Dizziness, No Headache <Li Obando NP - Last Filed: 07/25/22 18:05> Yes all other systems are reviewed and are negative <Li Obando NP - Last Filed: 07/25/22 18:05> [facility] Past Medical History Attestation statement: The following information was validated with the patient. <Li Obando NP - Last Filed: 07/25/22 18:05> Source: old records reviewed <Li Obando NP - Last Filed: 07/25/22 18:05> Medical History: Medical History CAD (coronary artery disease) Diabetes H/O blood clots HLD (hyperlipidemia) HTN (hypertension) Kidney anomaly, congenital Mixed hyperlipidemia Peripheral vascular disease T2DM (type 2 diabetes mellitus) <YULI Carvajal - Last Filed: 07/25/22 16:05> Surgical History: Surgical History H/O hand surgery H/O: hysterectomy History of cataract surgery History of cholecystectomy History of tonsillectomy <YULI Carvajal - Last Filed: 07/25/22 16:05> Family History Family History: Family History Father CVD (cardiovascular disease) Mother CVD (cardiovascular disease) Brother CVD (cardiovascular disease) Sister CVD (cardiovascular disease) Maternal Grandmother Diabetes Other No family history of cancer <YULI Carvajal - Last Filed: 07/25/22 16:05> Social History Social History: Social History Household Members: Family and Children Housing: House Are you a primary rn care manager to a significant other at home: Yes (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) Do you presently have visiting nurse or other home services: No Patient Tobacco Use Status: Current everyday Tobacco user Cigarette Packs Per Day: 1 Advance Directives: No Advance Directives Information Provided: Yes service: No Current occupational status: retired <YULI Carvajal - Last Filed: 07/25/22 16:05> Physical Exam ED Vital Signs: Vital Signs - 24 hr 07/25/22 16:01 Temperature 97.0 F Pulse Rate 100 Respiratory Rate 18 Blood Pressure 160/61 H Pulse Oximetry 99 Oxygen Delivery Method Room Air BMI result Body Mass Index 23.0 <YULI Carvajal Last Filed: 07/25/22 16:05> Vital Signs - 24 hr 07/25/22 16:01 Temperature 97.0 F Pulse Rate 100 Respiratory Rate 18 Blood Pressure 160/61 H Pulse Oximetry 99 Oxygen Delivery Method Room Air BMI result Body Mass Index 23.0 <NIKOLAI High Last Filed: 07/25/22 18:05> Appearance: Alert. Oriented X3. No acute distress. Eyes: Pupils equal, round and reactive to light. ENT: Pharynx normal. Neck: Normal inspection. Neck supple. No vertebral tenderness or step-offs. CVS: Normal heart rate and rhythm. Pulses normal. Respiratory: No respiratory distress. Breath sounds normal. Abdomen: Soft and nontender. Skin: Skin warm and dry. Normal skin color. Normal skin turgor. Extremities: Decreased range of motion to left upper extremity. Known fracture to the left humeral neck and tubercle. Equal erp specialist strength, full range of motion to the digits. Neuro: No motor deficit. No sensory deficit. Cranial nerves 2-12 intact <NIKOLAI High Last Filed: 07/25/22 18:05> Course Course Course Narrative: RME performed by Eri Gongora PA-C. Patient is a 71 year old female presenting to the emergency department with left shoulder pain. Patient states [place] Patient denies hitting her head or any loss of consciousness. Imaging ordered. Patient placed back in waiting room pending results and room availability. <YULI Carvajal Last Filed: 07/25/22 16:05> RME performed by Eri Gongora PA-C. Patient is a 71 year old female presenting to the emergency department with left shoulder pain. Patient states that she [place]. Patient denies hitting her head or any loss of consciousness. Imaging ordered. Patient placed back in waiting room pending results and room availability. 71-year-old female presents with injuries sustained from a fall. X-rays indicate fracture to the tool head and neck of the left humerus. I did discuss the findings with orthopedics PA, plan of care is for patient to follow-up Wednesday. We will keep patient in a sling, provide pain management with oxycodone. Patient does understand the risks of addiction as well as side effects of this medication. Patient has brisk capillary refill and equal pulses bilaterally. I did give patient information regarding compartment syndrome, and signs and symptoms indicating need for emergent intervention. Patient verbalized understanding of findings indicating need for emergent intervention. Chest x-rays negative for fracture however patient's physical presentation is consistent with contusion. I do not feel that this patient requires CT scan this time, patient's lung sounds are clear, even unlabored respirations, and no vertebral tenderness. Patient does understand that if she does develop shortness of breath or difficulty taking a deep breath over the next few days that she should return for further evaluation. I did provide incentive spirometer for this patient. Patient verbalized understanding of and agrees to plan of care discharge home. Verbalized understanding of signs or symptoms indicating need for emergent intervention <Li Obando NP - Last Filed: 07/25/22 18:05> Medications Administered Discontinued Medications Generic Name Dose Route Start Last Admin Trade Name Freq PRN Reason Stop Dose Admin Oxycodone HCl 5 mg 07/25/22 16:41 07/25/22 17:06 Oxycodone Hcl Immed Release 5 Mg Tablet PO 07/25/22 16:42 5 mg ONCE ONE Administration <YULI Carvajal - Last Filed: 07/25/22 16:05> Medications Administered Discontinued Medications Generic Name Dose Route Start Last Admin Trade Name Freq PRN Reason Stop Dose Admin Oxycodone HCl 5 mg 07/25/22 16:41 07/25/22 17:06 Oxycodone Hcl Immed Release 5 Mg Tablet PO 07/25/22 16:42 5 mg ONCE ONE Administration <Li Obando NP - Last Filed: 07/25/22 18:05> Medical Decision Making Differential Diagnosis Differential Diagnoses: The differential diagnosis associated with the presentation includes <Li Obando NP - Last Filed: 07/25/22 18:05> Fracture, dislocation, tendon injury <Li Obando NP - Last Filed: 07/25/22 18:05> Admission/Observation Consideration of admission/observation: Escalation of care including admission/observation considered <Li Obando NP - Last Filed: 07/25/22 18:05> Admission not considered <Li Obando NP - Last Filed: 07/25/22 18:05> Consult Healthcare Provider Management of the patient was discussed with: Payable Representative <Li Obando NP - Last Filed: 07/25/22 18:05> Orthopedics <Li Obando NP - Last Filed: 07/25/22 18:05> Independent Interpretation I performed an independent interpretation of an: Plain X-Ray <NIKOLAI High Last Filed: 07/25/22 18:05> Radiology Impression Discussion of test interpretation with radiology: I have reviewed the radiologist's reading. <NIKOLAI High Last Filed: 07/25/22 18:05> Radiologist Impression: CLINICAL INFORMATION: Reason for Exam fall, pain COMPARISON: None. TECHNIQUE: AP chest, 3 view series left ribs; 2 view series left elbow; AP and lateral radiographs of the left humerus; 3 view series left shoulder. FINDINGS: Left shoulder and left humerus: A displaced fracture of the greater tubercle of the left humeral head is noted. Vague transverse lucency and focal cortical irregularity of the medial surgical neck of the humerus is present suspicious for a minimally displaced transverse fracture of the humeral neck. No associated erosive osseous lesions. Lateral humeral alignment is grossly normal. The acromioclavicular joint spacing and alignment are normal. The visualized left ribs are intact. Left elbow: Left elbow radiographs are suboptimally oriented. No definitive fractures or gross subluxations making allowances for suboptimal images. Mild enthesopathic changes at the olecranon. Left rib series: No left rib fractures or suspicious left rib lesions identified. CHEST: Clip heart mild aortic calcific atherosclerosis. No effusions or pneumothoraces. No focal pulmonary consolidation. Normal pattern of pulmonary vasculature. XR/XR shoulder LT min 2V IMPRESSION: Left shoulder and left humerus: 1.? Displaced fracture of the greater tubercle of the left humeral head. 2.? Findings suspicious for a minimally displaced transverse fracture of the surgical neck of the humerus. ? LEFT ELBOW: 1. Suboptimal images of the left elbow secondary to suboptimal radiographic positioning/orientation. No gross fractures or malalignments identified. If clinical concern is present for possible minimally displaced fractures or subluxations of the left elbow, recommend repeat radiographs of the left elbow. ? Chest and left rib series: 1. No acute cardiopulmonary abnormalities. 2. No left rib fractures identified. <Li Obando NP - Last Filed: 07/25/22 18:05> External Record Review External record reviewed: Outpatient record <Li Obando NP - Last Filed: 07/25/22 18:05> Prescription Management I considered prescription management with: Pain Medication <Li Obando NP - Last Filed: 07/25/22 18:05> Discharge Plan Discharge Clinical Impression: Fracture of humeral head, Fracture of neck of humerus, Contusion of rib <YULI Carvajal - Last Filed: 07/25/22 16:05> Patient Disposition: Home, Self-Care <YULI Carvajal - Last Filed: 07/25/22 16:05> Instructions: Arm Fracture in Adults (ED), Compartment Syndrome (DC), How to Use a Sling (ED), R.I.C.E. Treatment (ED), Rib Contusion (ED), Shoulder Immobilizer (ED) <YULI Carvajal - Last Filed: 07/25/22 16:05> Additional Instructions: You were evaluated for injury sustained from a fall. X-rays indicate a displaced fracture of the humeral head and a fracture of the neck of the humerus on the left side. X-rays of the ribs were negative for displaced fracture however your symptoms are consistent with a rib contusion. Please take oxycodone 5 mg every 4-6 hours as needed for pain management. This medication is a narcotic, has high risk for addiction and abuse. This medication is constipating, can cause drowsiness, increased risk for falls, and delay reaction time. Do not drive or operate machinery while taking this medication. Take Colace or MiraLax daily to help soften stools. Alternate Tylenol 650 mg every 6 hours and Motrin 600 mg every 6 hours as needed for pain and fever management. Consider taking these medications 3 hours apart so you have nonnarcotic pain management every 3 hours. Write down what time you take these medications to prevent accidental overdose. I have included instructions for compartment syndrome. If you notice any signs or symptoms indicating compartment syndrome please return to the emergency department immediately. You do not have compartment syndrome at this time, but is important that you understand the signs and symptoms of this emergent condition I have referred you to [facility]. they will call you on Wednesday for an appointment time. Please keep the sling in place. Please use incentive spirometer least 10 times per hour. This device will help with fluid movement in the lungs and reduce the risk of pneumonia. Thank you for choosing this emergency department for evaluation. Please follow-up with primary care physician as needed. Return to the emergency department for any new, concerning, or worsening symptoms. <YULI Carvajal - Last Filed: 07/25/22 16:05> Prescriptions: New oxycodone 5 mg tablet 5 mg PO Q4H PRN (Reason: pain) 3 Days Qty: 18 0RF Rx Instructions: Partial Fill upon patient request. Greater tubercle displaced fracture and humeral neck fracture of the left upper extremity No Action isosorbide mononitrate 60 mg tablet extended release 24 hr 60 mg PO DAILY Qty: 90 2RF atorvastatin 80 mg tablet 80 mg PO BEDTIME metoprolol succinate 100 mg tablet extended release 24 hr 100 mg PO DAILY losartan 100 mg tablet 100 mg PO DAILY metformin 500 mg tablet extended release 24 hr 1,000 mg PO BID warfarin 5 mg tablet 5 mg PO DAILY Qty: 90 0RF Protocol: Dose Management Condition: Wednesday (Week One) Dose/Route: 2.5 mg Instruction: 0.5 x 5 mg tablets Condition: Wednesday Dose/Route: 2.5 mg Instruction: 0.5 x 5 mg tablets Condition: Wednesday Dose/Route: 2.5 mg Instruction: 0.5 x 5 mg tablets Condition: Wednesday Dose/Route: 2.5 mg Instruction: 0.5 x 5 mg tablets Condition: Dose/Route: 2.5 mg Instruction: 0.5 x 5 mg tablets Condition: Wednesday Dose/Route: 2.5 mg Instruction: 0.5 x 5 mg tablets Condition: Wednesday Dose/Route: 5 mg Instruction: 1 x 5 mg tablet Condition: Wednesday (Week Two) Dose/Route: 2.5 mg Instruction: 0.5 x 5 mg tablets Condition: Wednesday Dose/Route: 2.5 mg Instruction: 0.5 x 5 mg tablets Condition: Wednesday Dose/Route: 2.5 mg Instruction: 0.5 x 5 mg tablets Condition: Wednesday Dose/Route: 2.5 mg Instruction: 0.5 x 5 mg tablets Condition: Dose/Route: 2.5 mg Instruction: 0.5 x 5 mg tablets Condition: Wednesday Dose/Route: 2.5 mg Instruction: 0.5 x 5 mg tablets Condition: Wednesday Dose/Route: 5 mg Instruction: 1 x 5 mg tablet Protocol Text: Adjustment Start Date: 07/23/22 INR Value: 2.0 INR Date: 07/23/22 Recheck Date: 08/06/22 Additional Instructions: cont reg dosing clobetasol 0.05 % ointment 0.05 g topical BID (DME) blood sugar diagnostic Strip See Rx Instructions .ROUTE .MEDSUPPLY Qty: 10 Rx Instructions: As directed bid testing omega-3 acid ethyl esters 1 gram capsule 2 cap PO BID (DME) [employer] COVID-19 Ag Home Test Kit See Rx Instructions .ROUTE .MEDSUPPLY Qty: 1 Rx Instructions: As directed cholecalciferol (vitamin D3) 1,250 mcg (50,000 unit) capsule 1,250 mcg PO QWEEK icosapent ethyl [Vascepa] 1 gram capsule 2 g PO BID Qty: 120 11RF fenofibrate 160 mg tablet 160 mg PO DAILY <YULI Carvajal - Last Filed: 07/25/22 16:05> Referrals: Alia Ramirez PA-C [Physician Layer Out] - 3 days ( A displaced fracture of the greater tubercle of the left humeral head is noted. Vague transverse lucency and focal cortical irregularity of the medial surgical neck of the humerus is present suspicious for a minimally displaced transverse fracture of the humeral neck.) <YULI Carvajal - Last Filed: 07/25/22 16:05>
[2022-07-25] MEDS: oxyCODONE HCl Immed Release 5 MG TABLET PO (17:06)
== END 2022-07-25 18:26 | disposition home or self-care (01) ==
PROVIDERS: Emergency Provider Emergency Medicine; PCP Internal Medicine
DX: S42.252A Displaced fracture of greater tuberosity of left humerus, initial encounter for closed fracture (principal); S42.212A Unspecified displaced fracture of surgical neck of left humerus, initial encounter for closed fracture; S20.212A Contusion of left front wall of thorax, initial encounter; W01.0XXA Fall on same level from slipping, tripping and stumbling without subsequent striking against object, initial encounter; Y93.54 Activity, bowling; Y92.39 Other specified sports and athletic area as the place of occurrence of the external cause; Y99.9 Unspecified external cause status; E11.9 Type 2 diabetes mellitus without complications; I10 Essential (primary) hypertension; E78.5 Hyperlipidemia, unspecified; Z86.711 Personal history of pulmonary embolism; F17.210 Nicotine dependence, cigarettes, uncomplicated
CPT/HCPCS: 71101; 73030; 73060; 73070; 99283

== ENCOUNTER → 2022-07-27 12:36 | Outpatient (BNVA) | payer MEDICARE, SELFPAY | PROVIDERS: PCP Internal Medicine; Visit Provider Internal Medicine | DX: Z79.01 Long term (current) use of anticoagulants (principal) ==

== ENCOUNTER 2022-07-31 14:32 | Outpatient (REF) | payer MEDICARE, SELFPAY ==
--- NOTE | ~2022-07-31 | XR_ITS ---
EXAMINATION: XR SHOULDER, LEFT CLINICAL INFORMATION: Pain in left shoulder. COMPARISON: 07/25/2022 left humerus TECHNIQUE: Two views of the left shoulder. FINDINGS: Redemonstration of the displaced fracture of the greater tuberosity of the humeral head. Again seen is question subtle lucency through the surgical neck of the humerus but no definite fracture line through the surgical neck. There is no displacement of the humeral head. No ossified callus seen around the humeral head fracture. No dislocation. The acromioclavicular joint is normal. XR/XR shoulder LT min 2V IMPRESSION: Redemonstration of displaced fracture of the greater tuberosity of the humeral head. No ossified callus seen around the fracture.
== END 2022-07-31 14:33 | disposition home or self-care (01) ==
LOC: HO.HOSX 14:32
PROVIDERS: Visit Provider Physician Assistant
DX: S42.202A Unspecified fracture of upper end of left humerus, initial encounter for closed fracture (principal); W18.30XA Fall on same level, unspecified, initial encounter; Y93.54 Activity, bowling; Y92.9 Unspecified place or not applicable; Y99.9 Unspecified external cause status; Z79.891 Long term (current) use of opiate analgesic
CPT/HCPCS: 73030; 99202

== ENCOUNTER → 2022-08-06 14:59 | Outpatient (BNVA) | payer MEDICARE, SELFPAY | PROVIDERS: PCP Internal Medicine; Visit Provider Internal Medicine | DX: Z79.01 Long term (current) use of anticoagulants (principal) ==

== ENCOUNTER → 2022-08-20 13:47 | Outpatient (BNVA) | payer MEDICARE, SELFPAY | PROVIDERS: PCP Internal Medicine; Visit Provider Internal Medicine | DX: Z79.01 Long term (current) use of anticoagulants (principal) ==

== ENCOUNTER 2022-08-28 16:41 | Outpatient (REF) | payer MEDICARE, SELFPAY ==
--- NOTE | ~2022-08-28 | XR_ITS ---
EXAMINATION: XR SHOULDER, LEFT CLINICAL INFORMATION: Left shoulder pain COMPARISON: 07/31/2022 TECHNIQUE: AP external rotation, Grashey, scapular Y, and axillary views of the left shoulder. FINDINGS: Comminuted impacted fracture of the left shoulder without evidence dislocation. No significant surrounding callus formation. XR/XR shoulder LT min 2V IMPRESSION: Comminuted impacted fracture of the left shoulder without evidence of dislocation.
== END 2022-08-28 16:42 | disposition home or self-care (01) ==
LOC: HO.HOSX 16:41
PROVIDERS: Visit Provider Physician Assistant
DX: S42.202A Unspecified fracture of upper end of left humerus, initial encounter for closed fracture (principal)
CPT/HCPCS: 73030; 99212

== ENCOUNTER → 2022-09-03 08:59 | Outpatient (BNVA) | payer MEDICARE, SELFPAY | PROVIDERS: PCP Internal Medicine; Visit Provider Internal Medicine | DX: Z79.01 Long term (current) use of anticoagulants (principal) ==

== ENCOUNTER → 2022-09-17 09:35 | Outpatient (BNVA) | payer MEDICARE, SELFPAY | PROVIDERS: PCP Internal Medicine; Visit Provider Internal Medicine | DX: Z79.01 Long term (current) use of anticoagulants (principal) ==

== ENCOUNTER → 2022-10-01 12:19 | Outpatient (BNVA) | payer MEDICARE, SELFPAY | PROVIDERS: PCP Internal Medicine; Visit Provider Internal Medicine | DX: Z79.01 Long term (current) use of anticoagulants (principal) ==

== ENCOUNTER 2022-10-09 16:30 | Outpatient (REF) | payer MEDICARE, SELFPAY ==
--- NOTE | ~2022-10-09 | XR_ITS ---
EXAMINATION: XR SHOULDER, LEFT CLINICAL INFORMATION: Pain left shoulder COMPARISON: Left shoulder 08/28/2022 TECHNIQUE: Two views of the left shoulder. FINDINGS: There is loss of glenohumeral joint space without bony erosive changes. There is an old healing proximal humeral comminuted fracture with minimal displacement but no change since 08/28/2022. Mild arthritic changes left AC joint is noted. XR/XR shoulder LT min 2V IMPRESSION: 1. Old healing proximal humeral comminuted fracture with minimal displacement but no change since 08/28/2022. 2. Mild degenerative changes left AC joint and glenohumeral joint.
== END 2022-10-09 16:31 | disposition home or self-care (01) ==
LOC: HO.HOSX 16:30
PROVIDERS: Visit Provider Physician Assistant
DX: S42.202A Unspecified fracture of upper end of left humerus, initial encounter for closed fracture (principal)
CPT/HCPCS: 73030; 99212

== ENCOUNTER → 2022-10-15 10:44 | Outpatient (BNVA) | payer MEDICARE, SELFPAY | PROVIDERS: PCP Internal Medicine; Visit Provider Internal Medicine | DX: I26.99 Other pulmonary embolism without acute cor pulmonale (principal); Z79.01 Long term (current) use of anticoagulants; Z51.81 Encounter for therapeutic drug level monitoring | CPT/HCPCS: 99211 ==

== ENCOUNTER → 2022-10-22 11:17 | Outpatient (BNVA) | payer MEDICARE, SELFPAY | PROVIDERS: PCP Internal Medicine; Visit Provider Internal Medicine ==

== ENCOUNTER 2022-11-04 10:00 | Outpatient (RCR) | payer MEDICARE, SELFPAY ==
--- NOTE | 2022-09-23 14:59 | MHC.PT.EP ---
[facility] [place] Office [place] Office [place] Office [address] Evelyne Cameron [address] [phone] F: [phone] F: [phone] F: [phone] F: [phone] Physical Therapy Plan of Care Date of Evaluation: Date of Surgery: Diagnosis: Comminuted impacted fracture of the left shoulder-> PT EVAL-> GENTLE ROM ONLY Assessment: 71 YO FEMALE S/P LEFT PROXIMAL HUMERAL FRACTURE SUSTAINED IN A FALL WHILE BOWLING ON 07/25/22- SHE HAS BEEN WEANING HER SLING- SHE IS Rt HAND DOMINANT. Pt HAS LIMITED AROM Lt SH, DECR POSTURAL AWARENESS, (+) SOFT TISSUE IRRIT/ SUBSCAP TrP, POST RC/ SCAP WEAKNESS, AND FLUCTUATING PAIN IN HER Lt SH COMPLEX DEPENDENT ON ACTIVITY OR POSITION. Pt HAS DIFFIC DONNING HER BRA, LIFTING OBJECTS, DONNING JACKET-> ESPEC ADLs REQ REACHING OR IR W LEFT UE. Pt IS A GOOD PT CANDIDATE. Frequency and Duration: The patient will be seen 1 x WK(Pt'S REQUEST) x 6 WKS Short Term Goals: *DECREASE Lt SH PAIN TO 2-3/10 W ADLs *INDEP SELF-CORRECT POSTURE *INCREASE ROM Lt SH *EASE TISSUE TENSION Lt SH GIRDLE *INITIATE FUNCTIONAL STRENGTHENING ONCE CLEARED BY ORTHO AT NEXT F/U Jail Goals: *Pt DEMON ADEQUATE AROM Lt SH FOR INDEP ADLs *IMPROVED SPADI SCORE (AT EVAL96/130) *Pt DEMON FUNCTIONALFOR REG ADLS / IMPROVED STRENGTH Lt UE Treatment Plan: Modalities to reduce pain, spasms and effusion. Manual therapy to restore motion and function. Therapeutic exercise to improve strength and flexibility. Neuromuscular re-education for posture and balance. Therapeutic activities to return to functional activities of daily living. Electronically signed by: ANDI DUFF,PT Please sign and return to therapist. Thank you for your referral.
--- NOTE | 2022-12-01 11:56 | MHC.PT.DC ---
[facility] [place] Office [place] Office [place] Office [address] Evelyne Cameron 140 [facility] [phone] F: [phone] F: [phone] F: [phone] F: [phone] Physical Therapy Discharge Report Diagnosis: Comminuted impacted fracture of the left shoulder-> PT EVAL-> GENTLE ROM ONLY Date of Surgery: Date of Evaluation: 09/23/22 Date of Discharge: 12/01/22 Treatments to Date: 5 Cancellations to Date: 3 No Shows to Date: 0 Discharge Status: Achieved Goals Improved Function Independent with HEP Patient Elected to Stop Discharge Summary: Pt REMAINS MOTIVATED W HER HEP, SHE HAS INCR AROM AND FUNCTIONAL USE OF LEFT UE W/O PAIN Pt DEMON ENHANCED SCAP MM ACTIV AND SHE REMAINS MOTIVATED W PROGR STRENGTHENING FOR HER Lt SH COMPLEX; A FORMAL REASSESSMENT FOR D/C WAS NOT PERFORMED Pt CANCELLED HER LAST APPTS. Electronically signed by: ANDI DUFF, PT Please sign and return to therapist. Thank you for your referral.
== END 2022-12-01 11:59 | disposition home or self-care (01) ==
LOC: HO.PT 10:00
PROVIDERS: PCP Internal Medicine; Visit Provider Physician Assistant
DX: S42.202A Unspecified fracture of upper end of left humerus, initial encounter for closed fracture (principal)
CPT/HCPCS: 97110; 97161

== ENCOUNTER → 2022-11-05 13:04 | Outpatient (BNVA) | payer MEDICARE, SELFPAY | PROVIDERS: PCP Internal Medicine; Visit Provider Internal Medicine ==

== ENCOUNTER → 2022-11-19 09:22 | Outpatient (BNVA) | payer MEDICARE, SELFPAY | PROVIDERS: PCP Internal Medicine; Visit Provider Internal Medicine ==

== ENCOUNTER → 2022-12-03 09:42 | Outpatient (BNVA) | payer MEDICARE, SELFPAY | PROVIDERS: PCP Internal Medicine; Visit Provider Internal Medicine ==

== ENCOUNTER → 2022-12-17 09:34 | Outpatient (BNVA) | payer MEDICARE, SELFPAY | PROVIDERS: PCP Internal Medicine; Visit Provider Internal Medicine ==

== ENCOUNTER → 2022-12-31 09:46 | Outpatient (BNVA) | payer MEDICARE, SELFPAY | PROVIDERS: PCP Internal Medicine; Visit Provider Internal Medicine ==

== ENCOUNTER → 2023-01-14 10:59 | Outpatient (BNVA) | payer MEDICARE, SELFPAY | PROVIDERS: PCP Internal Medicine; Visit Provider Internal Medicine ==

== ENCOUNTER → 2023-01-28 10:14 | Outpatient (BNVA) | payer MEDICARE, SELFPAY | PROVIDERS: PCP Internal Medicine; Visit Provider Internal Medicine ==

== ENCOUNTER → 2023-02-11 10:05 | Outpatient (BNVA) | payer MEDICARE, SELFPAY | PROVIDERS: PCP Internal Medicine; Visit Provider Internal Medicine ==

== ENCOUNTER → 2023-02-25 09:46 | Outpatient (BNVA) | payer MEDICARE, SELFPAY | PROVIDERS: PCP Internal Medicine; Visit Provider Internal Medicine ==

== ENCOUNTER → 2023-03-11 08:45 | Outpatient (BNVA) | payer MEDICARE, SELFPAY | PROVIDERS: PCP Internal Medicine; Visit Provider Internal Medicine ==

== ENCOUNTER 2023-03-25 14:12 | Outpatient (AMB) | payer MEDICARE, SELFPAY ==
--- NOTE | 2023-03-25 14:19 | MHC.OFFVISCO ---
Intake Intake Visit Reasons: Anticoagulation Allergies No Known Allergies Allergy (Verified 03/11/23 08:46) Nursing Note INR received and reviewed from [facility] INR? 2.4 in therapeutic range Per patient assessment questionnaire No changes indicated No changes in health diet supplements or meds- pt blalanced her diet better No signs and symptoms of bleeding or bruising or clotting Keep same dosing 5mg x 2 days/ 2.5mg x 5 days Retest 2 weeks Anti-Coag Initial Assessment Social Hx Patient Tobacco Use Status: Current everyday Tobacco user Smoking packs per day: 1 Coding Level of Care Code Est Patient Level 1 Diagnoses Current use of anticoagulant therapy Z79.01 Results AMB INR Fingerstick AMB INR Fingerstick 2.4 Last Edit by Kayla Reyes RN on 03/25/23 14:17 HOME METER Assessment & Plan Assessment & Plan (1) Current use of anticoagulant therapy: Code(s): 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
== END 2023-03-25 14:21 | disposition home or self-care (01) ==
LOC: HO.ACS 14:12
PROVIDERS: PCP Internal Medicine; Visit Provider Internal Medicine
DX: Z79.01 Long term (current) use of anticoagulants (principal)

== ENCOUNTER → 2023-03-25 14:12 | Outpatient (BNVA) | payer MEDICARE, SELFPAY | PROVIDERS: PCP Internal Medicine; Visit Provider Internal Medicine | DX: I26.99 Other pulmonary embolism without acute cor pulmonale (principal); Z79.01 Long term (current) use of anticoagulants; Z51.81 Encounter for therapeutic drug level monitoring | CPT/HCPCS: 99211 ==

== ENCOUNTER → 2023-04-08 11:21 | Outpatient (BNVA) | payer MEDICARE, SELFPAY | PROVIDERS: PCP Internal Medicine; Visit Provider Internal Medicine ==

== ENCOUNTER 2023-04-20 11:03 | Outpatient (REF) | payer MEDICARE, SELFPAY ==
[2023-04-20 13:26] LABS: Anion Gap 13 (12-20); Blood Urea Nitrogen 10 mg/dL (9-16); Calcium 9.5 mg/dL (8.4-10.2); Carbon Dioxide 24 mmol/L (22-29); Chloride 101 mmol/L (96-108); Estimated Glomerular Filt Rate > 60; Potassium 4.1 mmol/L (3.3-5.1); Sodium 134 mmol/L (135-145)
[2023-04-20 13:33] LABS: Total Protein Urine Random < 7 mg/dL (<12)
== END 2023-04-20 11:04 | disposition home or self-care (01) ==
LOC: HO.LAB 11:03
PROVIDERS: Visit Provider Internal Medicine Nephrology
DX: N27.0 Small kidney, unilateral (principal); I10 Essential (primary) hypertension
CPT/HCPCS: 36415; 80051; 82310; 82565; 82570; 84156; 84520

== ENCOUNTER → 2023-04-22 09:50 | Outpatient (BNVA) | payer MEDICARE, SELFPAY | PROVIDERS: PCP Internal Medicine; Visit Provider Internal Medicine ==

== ENCOUNTER 2023-05-06 10:03 | Outpatient (AMB) | payer MEDICARE, SELFPAY ==
[2023-05-06 10:18] LABS: Prothrombin Time Whole Bld POC 34.2 sec (11.1-13.5); ~PT, ~INR - Anti Coag Clinic 2.9 (0.9-1.1)
--- NOTE | 2023-05-06 10:28 | MHC.OFFVISCO ---
Intake Intake Visit Reasons: Anticoagulation Allergies No Known Allergies Allergy (Verified 05/06/23 10:10) Medication List - Last Reconciled 05/06/23 by Kayla Reyes, RN atorvastatin 80 mg PO BEDTIME blood sugar diagnostic As directed bid testing cholecalciferol (vitamin D3) 1,250 mcg PO QWEEK COVID-19 antigen test (Flowflex COVID-19 Antigen Home Test kit) As directed fenofibrate 160 mg PO DAILY icosapent ethyl (Vascepa) 2 grams (2 x 1 gram) PO BID isosorbide mononitrate ER 60 mg PO DAILY losartan 100 mg PO DAILY metformin ER 1,000 mg PO BID metoprolol succinate ER 100 mg PO DAILY nicotine (polacrilex) 2 mg PO PRN warfarin 5 mg See Protocol PO DAILY Nursing Note pt had clinic appointment for meter to meter correlation, she demonstrated proficient POC skills INR: 2.9 in therapeutic range on clinic meter and her meter also read 2.9 Medications and supplements reviewed- no changes still smoking 1/2 - 1 pack of cigarets / day, she has the nicorett gum -she states she just has not started it yet, it was explained that when she smokes signigicantly less it will increase the INR and to eat more greens and call [facility], if she smokes more it may lower the INR and may need to adjut diet No changes in health, diet, medications, or supplements, Denies any signs and symptoms of bleeding or bruising or clotting. Bleeding, bruising, clotting discussed Nutritional guidance given - keep eating a mix of fruits and vegetables Dose: keep same dose for now 5mg x 2 days/ 2.5mg x 5 days F/U INR: 2 weeks with home meter Patient verbalizes understanding of instructions given Anti-Coag Initial Assessment Social Hx Patient Tobacco Use Status: Current everyday Tobacco user Smoking packs per day: 1 Coding Level of Care Code Est Patient Level 1 Diagnoses Current use of anticoagulant therapy Z79.01 Assessment & Plan Assessment & Plan (1) Current use of anticoagulant therapy: Code(s): Z79.01 - [facility] (current) use of anticoagulants Category: Medical
== END 2023-05-06 10:39 | disposition home or self-care (01) ==
LOC: HO.ACS 10:03
PROVIDERS: PCP Internal Medicine; Visit Provider Internal Medicine
DX: Z79.01 Long term (current) use of anticoagulants (principal)

== ENCOUNTER → 2023-05-06 10:03 | Outpatient (BNVA) | payer MEDICARE, SELFPAY | PROVIDERS: PCP Internal Medicine; Visit Provider Internal Medicine | DX: I26.99 Other pulmonary embolism without acute cor pulmonale (principal); Z79.01 Long term (current) use of anticoagulants; Z51.81 Encounter for therapeutic drug level monitoring | CPT/HCPCS: 85610; 99211 ==

== ENCOUNTER → 2023-05-20 09:47 | Outpatient (BNVA) | payer MEDICARE, SELFPAY | PROVIDERS: PCP Internal Medicine; Visit Provider Internal Medicine ==

== ENCOUNTER → 2023-06-03 09:10 | Outpatient (BNVA) | payer MEDICARE, SELFPAY | PROVIDERS: PCP Internal Medicine; Visit Provider Internal Medicine ==

== ENCOUNTER 2023-06-15 09:16 | Outpatient (REF) | payer MEDICARE, SELFPAY ==
--- NOTE | ~2023-06-15 | CT_ITS ---
EXAMINATION: CT CHEST LOW-DOSE SCREENING WITHOUT CONTRAST HISTORY: Asymptomatic patient meeting criteria for lung screening. Smoking PATIENT PACK-YEAR HISTORY: 45 Current Smoker: Yes If former smoker, years since quitting: NA COMPARISON: 09/11/2021 TECHNIQUE: Multidetector volumetric non-contrast CT imaging of the chest was obtained on a [id number] 128 slice scanner using low dose screening CT technique. Axial thin section 0.625 mm reformations in soft tissue and lung windows were obtained. Sagittal and coronal reformations were obtained. Axial MIP images were also created and reviewed. RECONSTRUCTED WIDTH: 1.25 mm x 1.25 mm TOTAL EXAM DLP: 43 mGy-cm CTDIvol: 1.0 mGy FINDINGS: The infectious disease physician view is unremarkable LUNGS: There are changes of centrilobular emphysema and cystic disease with scattered ill-defined groundglass opacities, dependent atelectasis, and small scattered stable lung nodules between 2 and 3 mm. There are no new lung nodules. Central airways are patent. There are no dominant lung nodules. MEDIASTINUM/LYMPHATIC STRUCTURES: There are shotty mediastinal lymph nodes stable since previous study, nonspecific THYROID GLAND: Unremarkable to the extent seen. CARDIOVASCULAR STRUCTURES: Thoracic aorta is calcified but not dilated. Pulmonary artery is not dilated. There is no pericardial effusion. Coronary artery calcifications are prominent. PLEURA: VISUALIZED ABDOMEN: There is splenomegaly. Left kidney is atrophic. There is nonobstructing calculus in the upper pole of right kidney, measured 0.4 cm. Vascular calcifications seen in the left kidney. MUSCULO-SKELETAL: No suspicious focal findings. SPINAL COMPRESSION: Absent. CT/CT lung screening IMPRESSION: 1. No findings suspicious for malignancy/pulmonary nodule(s)/other. 2. History of lung cancer: Lung-Rads DESCRIPTOR: benign. LUNG-RADS CATEGORY - 2 ASSESSMENT: Benign. PHYSICAL FINDINGS (S CATEGORY): Finding: Nephrolithiasis. Splenomegaly. Left renal atrophy Significance category: Possibly clinically significant RECOMMENDATION: Low dose lung CT. overall in 1 year. Visual estimate of coronary calcified plaque burden: None. However, this exam cannot replace a dedicated cardiac CT calcium score for accurate assessment.
== END 2023-06-15 09:17 | disposition home or self-care (01) ==
LOC: HO.CT 09:16
PROVIDERS: PCP Internal Medicine; Visit Provider Physician Assistant Medical
DX: Z12.2 Encounter for screening for malignant neoplasm of respiratory organs (principal); F17.210 Nicotine dependence, cigarettes, uncomplicated
CPT/HCPCS: 71271

== ENCOUNTER → 2023-06-17 10:49 | Outpatient (BNVA) | payer MEDICARE, SELFPAY | PROVIDERS: PCP Internal Medicine; Visit Provider Internal Medicine ==

== ENCOUNTER 2023-06-22 10:34 | Outpatient (AMB) | payer MEDICARE, SELFPAY ==
--- NOTE | 2023-06-22 10:56 | A.OFFVIS_ITS ---
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 Allergies No Known Allergies Allergy (Verified 06/17/23 11:25) Medication List - Last Reconciled 06/22/23 by Jacob Dunham MD atorvastatin 80 mg PO BEDTIME blood sugar diagnostic As directed bid testing cholecalciferol (vitamin D3) 1,250 mcg PO QWEEK COVID-19 antigen test (Flowflex COVID-19 Antigen Home Test kit) As directed fenofibrate 160 mg PO DAILY icosapent ethyl (Vascepa) 2 grams (2 x 1 gram) PO BID isosorbide mononitrate ER 60 mg PO DAILY losartan 100 mg PO DAILY metformin ER 1,000 mg PO BID metoprolol succinate ER 100 mg PO DAILY warfarin 5 mg See Protocol PO DAILY HPI HPI Comments History of Present Illness Details Caryn comes for follow-up. She has no new cardiac complaints to report. Unfortunately she continues to smoke. Since I last saw her she has been diagnosed with pulmonary embolism currently on warfarin therapy. She has not had any recent lipid panel in the system. She denies any exertional chest pain or worsening exertional shortness of breath. No orthopnea, PND, leg edema. Continues to have claudication being followed by vascular interventionalist. Taking all her medications. No bleeding issues or neurologic events. [facility] Medical History HLD (hyperlipidemia) HTN (hypertension) T2DM (type 2 diabetes mellitus) CAD (coronary artery disease) Mixed hyperlipidemia Peripheral vascular disease Diabetes Kidney anomaly, congenital H/O blood clots Surgical History History of cataract surgery H/O hand surgery History of tonsillectomy History of cholecystectomy H/O: hysterectomy Family History Father CVD (cardiovascular disease) Mother CVD (cardiovascular disease) Brother CVD (cardiovascular disease) Sister CVD (cardiovascular disease) Maternal Grandmother Diabetes Other No family history of cancer Social History Household Members: Family and Children Housing: House Are you a primary director of medicare to a 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 other at home: 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) Do you presently have visiting nurse or other home services: No Patient Tobacco Use Status: Current everyday Tobacco user Cigarette Packs Per Day: 1 service: No Current occupational status: retired Review of Systems Const Denies chills, Denies fatigue, Denies fever(s), Denies frequent falls, Denies weakness, Denies weight gain and Denies weight loss ENT Denies dizziness Card Denies chest pain, Denies leg edema, Denies lightheadedness, Denies palpitations, Denies dyspnea, Denies dyspnea on exertion, Denies orthopnea and Denies other (loss of consciousness) Resp Denies cough, Denies dyspnea and Denies dyspnea on exertion GI Denies hematochezia and Denies change in stool character Musc Denies abnormal gait, Denies muscle weakness, Denies numbness, Denies radiating pain into limb and Denies tingling Neuro Denies abnormal gait, Denies dizziness, Denies frequent falls, Denies numbness, Denies tingling and Denies weakness Endo Denies fatigue and Denies palpitations Physical Exam Vital Signs: Last Vital Signs Pulse 78 06/22/23 10:57 BP 120/74 06/22/23 10:57 BMI result Body Mass Index 23.0 Const General: cooperative, comfortable, no acute distress, alert and awake Nutritional Appearance: thin Orientation/consciousness: patient oriented x3 Limitations: no limitations Neck Neck: Yes trachea midline, Yes supple and Yes no JVD Resp Effort & Inspection: normal respiratory effort Auscultation: no rales, no wheezes and diminished lung sounds Cardio Jugular venous distension: no JVD Palpation: normal PMI Rate: regular rate Rhythm: regular rhythm Heart sounds: S1 normal heart sound present and S2 normal heart sound present GI Auscultation: normal bowel sounds Skin General skin exam: no rashes or lesions noted Neuro General: patient oriented x3 and no focal motor deficits Extrem General: Yes no clubbing, cyanosis or edema Psych Appearance: grossly normal Office Procedures EKG Details: EKG shows normal sinus rhythm normal EKG at 78 beats per minute [id number], Complete Assessment & Plan Assessment & Plan (1) CAD (coronary artery disease): Comment: Chronic total occlusion of RCA with good [id number] collaterals Code(s): I25.10 - Atherosclerotic heart disease of [place] coronary artery without angina pectoris Plan: CAD with chronic total occlusion RCA without any symptoms of angina as well as diffuse vascular disease. Currently on warfarin therapy for anticoagulation due to her recent PE, possibly unprovoked although she has risk factors of smoking. No recurrent events on warfarin therapy. If she has any other vascular disease or intervention will require long-term antiplatelet therapy in addition. She is being followed by [facility]. Maintain target INR between 2 and 3. Currently seems like she is on triple therapy with CPAP, fenofibrate as well as statin therapy for her mixed hyperlipidemia, see below. Continue dual antian ginal therapy. Blood pressure is well optimized. Advised complete smoking cessation. (2) Mixed hyperlipidemia: Code(s): E78.2 - Mixed hyperlipidemia Plan: Marked mixed hyperlipidemia. Advised lipid panel near future. Target goal LDL less than 60 mg/dL as well as triglycerides at least less than 200 mg/dL. Advised to follow-up based on the test results. May require further intensification of therapy. Importance of therapy for lipids was discussed with her. Follow up in the clinic in 1 year's time, sooner p.r.n.. Thank you for allowing me to partake in her care Orders: Orders Lipid Panel Today I25.10 - Atherosclerotic heart disease of [place] coronary artery without angina pectoris CRP High Sensitivity Today E78.5 - Hyperlipidemia, unspecified, I25.10 - Atherosclerotic heart disease of [place] coronary artery without angina pectoris Coding Level of Care Code Est Pt Level 4 (49464) Diagnoses CAD (coronary artery disease) I25.10 Mixed hyperlipidemia E78.2 CPT Codes EKG - CPT: 63508-[id number], Complete ([id number])
[2023-06-22 10:57] VITALS: BP 120/74; PULSE 78; BMI 23.0
== END 2023-06-22 11:43 | disposition home or self-care (01) ==
PROVIDERS: Visit Provider Internal Medicine Cardiovascular Disease
DX: I25.10 Atherosclerotic heart disease of native coronary artery without angina pectoris (principal); E78.2 Mixed hyperlipidemia
CPT/HCPCS: 93010; 99214

== ENCOUNTER → 2023-06-22 10:34 | Outpatient (BNVA) | payer MEDICARE, SELFPAY | PROVIDERS: Visit Provider Internal Medicine Cardiovascular Disease | DX: I25.10 Atherosclerotic heart disease of native coronary artery without angina pectoris (principal); E78.2 Mixed hyperlipidemia | CPT/HCPCS: 93005; 99212 ==

== ENCOUNTER 2023-07-01 12:25 | Outpatient (AMB) | payer MEDICARE, SELFPAY ==
--- NOTE | 2023-07-01 12:28 | MHC.OFFVISCO ---
Intake Intake Visit Reasons: Anticoagulation Allergies No Known Allergies Allergy (Verified 07/01/23 12:26) Medication List - Last Reconciled 07/01/23 by Kayla Reyes RN atorvastatin 80 mg PO BEDTIME blood sugar diagnostic As directed bid testing cholecalciferol (vitamin D3) 1,250 mcg PO QWEEK COVID-19 antigen test (Flowflex COVID-19 Antigen Home Test kit) As directed fenofibrate 160 mg PO DAILY icosapent ethyl (Vascepa) 2 grams (2 x 1 gram) PO BID isosorbide mononitrate ER 60 mg PO DAILY losartan 100 mg PO DAILY metformin ER 1,000 mg PO BID metoprolol succinate ER 100 mg PO DAILY warfarin 5 mg See Protocol PO DAILY Nursing Note INR: 2.7 in therapeutic range Medications and supplements reviewed No changes in health, diet, medications, or supplements, Denies any signs and symptoms of bleeding or bruising or clotting. Bleeding, bruising, clotting discussed Nutritional guidance given Dose: 5MG X 2 DAYS/ 2.5MG X 5 DAYS F/U INR: 2 WEEKS Patient verbalizes understanding of instructions given Anti-Coag Initial Assessment Social Hx Patient Tobacco Use Status: Current everyday Tobacco user Smoking packs per day: 1 Coding Level of Care Code Est Patient Level 1 Diagnoses Current use of anticoagulant therapy Z79.01 Results AMB INR Fingerstick AMB INR Fingerstick 2.7 Last Edit by Kayla Reyes RN on 07/01/23 12:27 HOME METER Assessment & Plan Assessment & Plan (1) Current use of anticoagulant therapy: Code(s): Z79.01 - residential (current) use of anticoagulants Category: Medical
== END 2023-07-01 12:30 | disposition home or self-care (01) ==
LOC: HO.ACS 12:25
PROVIDERS: PCP Internal Medicine; Visit Provider Internal Medicine
DX: Z79.01 Long term (current) use of anticoagulants (principal)

== ENCOUNTER → 2023-07-01 12:25 | Outpatient (BNVA) | payer MEDICARE, SELFPAY | PROVIDERS: PCP Internal Medicine; Visit Provider Internal Medicine | DX: I26.99 Other pulmonary embolism without acute cor pulmonale (principal); Z79.01 Long term (current) use of anticoagulants; Z51.81 Encounter for therapeutic drug level monitoring | CPT/HCPCS: 99211 ==

== ENCOUNTER 2023-07-02 09:26 | Outpatient (REF) | payer MEDICARE, SELFPAY ==
[2023-07-02 09:48] LABS: MANUAL DIFF FLAG NO
[2023-07-02 09:58] LABS: Basophils Percent Auto 0.2 % (0-2); Eosinophils Percent Auto 0.4 % (0-4); Hematocrit 31.9 % (37.0-47.0); Hemoglobin 9.5 g/dl (12.0-16.0); Imm Gran Abs Auto 0.03 X10*3/uL (0.00-0.03); Imm Gran Pct Auto 0.7 % (0.0-0.4); Lymphocytes Percent Auto 22.7 % (20-40); Mean Corpuscular HGB Conc 29.8 g/dl (31.0-35.0); Mean Corpuscular Hemoglobin 22.1 pg (27.0-33.0); Mean Corpuscular Volume 74.4 fL (80.0-98.0); Mean Platelet Volume 9.7 fL (9.4-12.3); Monocytes Absolute Auto 0.3 X10*3/uL (0.1-1.2); Neutrophils Absolute Auto 3.1 x10*3/uL (2.0-8.3); Platelet Count 212 X10*3/uL (160-400); Red Blood Count 4.29 X10*6/uL (4.20-5.50); Red Cell Distribution Width 15.4 % (11.0-16.0); White Blood Count 4.5 X10*3/uL (4.8-10.8)
[2023-07-02 10:04] LABS: Alanine Aminotransferase 12 U/L (0-31); Albumin Level 4.3 g/dL (3.5-5.0); Alkaline Phosphatase 69 U/L (39-117); Anion Gap 13 (12-20); Aspartate Amino Transferase 24 U/L (5-31); Bilirubin Total 0.4 mg/dL (0.0-1.0); Blood Urea Nitrogen 16 mg/dL (9-16); Calcium 9.6 mg/dL (8.4-10.2); Carbon Dioxide 24 mmol/L (22-29); Chloride 104 mmol/L (96-108); Estimated Glomerular Filt Rate > 60; Glucose Random 131 mg/dL (60-115); Potassium 4.3 mmol/L (3.3-5.1); Sodium 137 mmol/L (135-145); Total Protein 7.9 g/dL (6.5-8.0)
[2023-07-02 10:20] LABS: D Dimer High Sensitivity < 150 NG/ML
[2023-07-02 13:31] LABS: Iron 25 mcg/dL (30-160); Lactate Dehydrogenase 225 U/L (122-220); Percent Iron Saturation 6 % (15-50); Total Iron Binding Capacity 441 mcg/dL (228-428); Unsaturated Iron Binding 416 ug/dL
[2023-07-02 13:51] LABS: Ferritin 12 ng/mL (10-250)
== END 2023-07-02 09:27 | disposition home or self-care (01) ==
LOC: HO.LAB 09:26
PROVIDERS: Internal Medicine Medical Oncology; PCP Internal Medicine; Visit Provider Internal Medicine Cardiovascular Disease
DX: I26.99 Other pulmonary embolism without acute cor pulmonale (principal)
CPT/HCPCS: 36415; 80053; 82728; 83540; 83615; 85025; 85379

== ENCOUNTER → 2023-07-15 11:50 | Outpatient (BNVA) | payer MEDICARE, SELFPAY | PROVIDERS: PCP Internal Medicine; Visit Provider Internal Medicine ==

== ENCOUNTER 2023-10-11 14:23 | Outpatient (AMB) | payer MEDICARE, SELFPAY ==
--- NOTE | 2023-10-11 14:31 | MHC.OFFVIS ---
Intake Vital Signs 10/11/23 14:35 Height 5 ft 3 in Weight 133 lb 5 oz BMI 23.6 BP 150/70 H Blood Pressure Location Lt brachial Position Sitting Pulse 77 Pulse Source Pulse Oximeter Pulse Oximetry (%) 100 Oxygen Delivery Method Room Air Intake Visit Reasons: ? occult bleeding - ? EGD & Colonoscopy Intake Note: pt here for screeninf of colonoscopy Information Interpreted: non-clinical & clinical Accompanied by: Self / Same As Patient Allergies No Known Allergies Allergy (Verified 10/11/23 14:32) HPI ? occult bleeding - ? EGD & Colonoscopy HPI Details 72-year-old female with past medical history of PE, of anticoagulation therapy in May of 2023, fracture of proximal end of left humerus, hyperlipidemia, hypertension, diabetes, CAD, PVD, history of cholecystectomy, tonsillectomy, hysterectomy, is here today for initial consultation. Patient was sent by her nicker and breaker. Patient's H&H low and currently is on oral iron. Patient was supposed to start infusions and she is not aware any. Patient denies any melena, hematochezia, unintentional weight loss or ribbon like stools. Patient reports frequent postprandial loose stools. Patient does have a history of cholecystectomy. Patient is taking Imodium to control her diarrhea. Patient denies any dyspepsia, dysphagia or odynophagia. Patient is on omeprazole. Patient was placed on omeprazole twice a day. Patient denies any epigastric pain or discomfort. Last colonoscopy was done in 2012, history of tubular adenoma and was supposed to repeat colonoscopy in 5 years. Patient does have a history of anemia in the past and colonoscopy screening was done in 2012 for history of tubular adenoma and anemia. Upper endoscopy was performed at that time as well. Patient had no polyps, internal hemorrhoids found. No source of bleed was found. Patient denies any issues with anesthesia in the past. No history of sleep apnea. Not on any anticoagulation medication at this time. No history of infectious diseases in the past or present. Patient denies any cardiac or respiratory symptoms at this time. 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 Next appointment in June. Will send request to see if patient needs to be cleared before the procedure. [facility] Medical History HLD (hyperlipidemia) HTN (hypertension) T2DM (type 2 diabetes mellitus) CAD (coronary artery disease) Mixed hyperlipidemia Peripheral vascular disease Diabetes Kidney anomaly, congenital H/O blood clots Surgical History History of cataract surgery H/O hand surgery History of tonsillectomy History of cholecystectomy H/O: hysterectomy Family History Father CVD (cardiovascular disease) Mother CVD (cardiovascular disease) Brother CVD (cardiovascular disease) Sister CVD (cardiovascular disease) Maternal Grandmother Diabetes Other No family history of cancer Social History Household Members: Family and Children Housing: House Are you a primary professional healthcare representative to a significant other at home: Yes (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) Do you presently have visiting nurse or other home services: No Patient Tobacco Use Status: Current everyday Tobacco user Cigarette Packs Per Day: 1 service: No Current occupational status: retired Review of Systems Const Denies weight gain and Denies weight loss ENT Reports no additional complaints, Denies dysphagia and Denies odynophagia Card Reports no additional complaints Resp Reports no additional complaints GI Denies abdominal pain, Denies belching, Denies melena, Reports bloating, Denies change in bowel habits, Denies dysphagia, Denies excessive flatus, Denies dyspepsia, Denies heartburn, Denies diarrhea, Reports loose stools, Denies nausea, Denies odynophagia and Denies vomiting Reports no additional complaints Musc Reports no additional complaints Neuro Reports no additional complaints Psych Reports no additional complaints Endo Reports no additional complaints Physical Exam Vital Signs: Last Vital Signs Pulse 77 10/11/23 14:35 BP 150/70 H 10/11/23 14:35 Pulse Ox 100 10/11/23 14:35 Oxygen Delivery Method Room Air 10/11/23 14:35 BMI result Body Mass Index 23.6 Const General: healthy appearing, no acute distress and well developed Nutritional Appearance: well nourished Orientation/consciousness: patient oriented x3 Resp Effort & Inspection: normal respiratory effort, able to speak in complete sentences, no tracheal deviation and symmetric chest movement Auscultation: clear to auscultation bilaterally Cardio Rate: regular rate GI Inspection: Yes normal to inspection and Yes distended Palpation (GI): Soft to palpation, not firm, nontender and No hepatosplenomegaly present Auscultation: Hypoactive bowel sounds present General: Yes no CVA tenderness Back/Spine/Pelvis Back: no CVA tenderness Skin General skin exam: elasticity normal, turgor normal and dry skin Neuro General: patient oriented x3 Psych Appearance: grossly normal Mental Status: mental status grossly normal Affect: normal affect Assessment & Plan Assessment & Plan (1) History of cholecystectomy: Code(s): Z90.49 - Acquired absence of other specified parts of digestive tract (2) Anemia: Code(s): D64.9 - Anemia, unspecified Qualifiers: Anemia type: iron deficiency Iron deficiency anemia type: other iron deficiency Qualified Code(s): D50.8 - Other iron deficiency anemias (3) Postprandial abdominal bloating: Code(s): R14.0 - Abdominal distension (gaseous) (4) Diarrhea: Code(s): R19.7 - Diarrhea, unspecified Qualifiers: Diarrhea type: functional diarrhea Qualified Code(s): K59.1 - Functional diarrhea Plan Patient is sent by nicker and breaker to evaluate the cause of her anemia. Last colonoscopy in 2012 showed no polyps, however patient has a history of tubular adenoma in 2006 and was supposed to repeat colonoscopy in 5 years. History of PE, anticoagulation therapy was stopped in May. Will schedule patient for upper endoscopy and colonoscopy patient sees cardiology will ask for clearance. Patient reports no cardiac or respiratory symptoms, however patient is a smoker and reports occasionally winded when she goes up the stairs. History of CAD. Patient denies melena, hematochezia, unintentional weight loss or ribbon like stools. Currently on omeprazole twice a day, continue current PPI treatment. Patient reports postprandial abdominal bloating history of cholecystectomy, occasional diarrhea that is being managed with Imodium. Discussed with patient to try to avoid taking Imodium and try to use fiber supplements to help her bulk her stools. Low FODMAP diet discussed with patient. List of food recommended as well as list of food to avoid given to patient. Patient was instructed to call our office if she will have any GI concerning symptoms. Follow-up with us otherwise after the procedure. Patient is agreeable to this plan and verbalizes understanding of instructions. She was given the opportunity to ask questions all questions answered. Thank you for allowing me to participate in her care Orders: Orders Complete Blood Count no Diff Today K21.9 - Gastro-esophageal reflux disease without esophagitis Vitamin B12 and Folate Today R19.7 - Diarrhea, unspecified TSH reflex Free T4 Today K59.00 - Constipation, unspecified Ferritin Today D50.8 - Other iron deficiency anemias Vitamin D 25-OH (D2 and D3) Today E55.9 - Vitamin D deficiency, unspecified IRON PROFILE Today D64.9 - Anemia, unspecified Coding Level of Care Code New Pt Level 4 (88491) Diagnoses History of cholecystectomy Z90.49 Other iron deficiency anemia D50.8 Anemia type: iron deficiency Iron deficiency anemia type: other iron deficiency Postprandial abdominal bloating R14.0 Functional diarrhea K59.1 Diarrhea type: functional diarrhea Time Spent (min) 45 Comment 30 minutes spent with patient and additional 15 minutes spent reviewing her records
[2023-10-11 14:35] VITALS: BP 150/70; PULSE 77; O2SAT 100; BMI 23.6
== END 2023-10-11 15:35 | disposition home or self-care (01) ==
PROVIDERS: PCP Internal Medicine; Referring Provider Internal Medicine Medical Oncology; Visit Provider Nurse Practitioner Family
DX: Z90.49 Acquired absence of other specified parts of digestive tract (principal); D50.8 Other iron deficiency anemias; R14.0 Abdominal distension (gaseous); K59.1 Functional diarrhea
CPT/HCPCS: 99204

== ENCOUNTER → 2023-10-11 14:23 | Outpatient (BNVA) | payer MEDICARE, SELFPAY | PROVIDERS: PCP Internal Medicine; Referring Provider Internal Medicine Medical Oncology; Visit Provider Nurse Practitioner Family | DX: K21.9 Gastro-esophageal reflux disease without esophagitis (principal); K59.1 Functional diarrhea; K59.00 Constipation, unspecified; D50.8 Other iron deficiency anemias; E78.5 Hyperlipidemia, unspecified; R14.0 Abdominal distension (gaseous); Z90.49 Acquired absence of other specified parts of digestive tract | CPT/HCPCS: 99202 ==

== ENCOUNTER 2023-10-18 10:54 | Outpatient (REF) | payer MEDICARE, SELFPAY ==
[2023-10-18 11:28] LABS: Hematocrit 30.4 % (37.0-47.0); Hemoglobin 9.3 g/dl (12.0-16.0); Mean Corpuscular HGB Conc 30.6 g/dl (31.0-35.0); Mean Corpuscular Hemoglobin 23.3 pg (27.0-33.0); Mean Corpuscular Volume 76.2 fL (80.0-98.0); Mean Platelet Volume 9.4 fL (9.4-12.3); Platelet Count 173 X10*3/uL (160-400); Red Blood Count 3.99 X10*6/uL (4.20-5.50); Red Cell Distribution Width 18.5 % (11.0-16.0)
[2023-10-18 12:02] LABS: Iron 76 mcg/dL (30-160); Percent Iron Saturation 18 % (15-50); Total Iron Binding Capacity 431 mcg/dL (228-428); Unsaturated Iron Binding 355 ug/dL
[2023-10-18 12:19] LABS: Ferritin 16 ng/mL (10-250); TSH reflex Free T4 0.92 uIU/mL (0.32-4.0)
[2023-10-18 12:35] LABS: Folate 11.6 ng/mL (> or = 4.0); Vitamin B12 203 pg/mL (200-900)
[2023-10-21 12:24] LABS: Vitamin D 25-OH, D2 <4 ng/mL; Vitamin D 25-OH, D3 13 ng/mL; Vitamin D 25-OH, Total 13 ng/mL (30-100)
== END 2023-10-18 10:55 | disposition home or self-care (01) ==
LOC: HO.LAB 10:54
PROVIDERS: Visit Provider Nurse Practitioner Family
DX: E55.9 Vitamin D deficiency, unspecified (principal); R19.7 Diarrhea, unspecified; K59.00 Constipation, unspecified; D50.8 Other iron deficiency anemias; K21.9 Gastro-esophageal reflux disease without esophagitis
CPT/HCPCS: 36415; 82306; 82607; 82728; 82746; 83540; 84443; 85027

== ENCOUNTER 2024-02-02 07:36 | Outpatient (REF) | payer MEDICARE, SELFPAY ==
--- NOTE | ~2024-02-02 | US_ITS ---
EXAMINATION: US COMPLETE ABDOMEN WITH LIVER ELASTOGRAPHY CLINICAL INFORMATION: COMPARISON: None available. TECHNIQUE: Real-time imaging of the abdominal viscera. Noninvasive ultrasound liver fibrosis assessment is performed using Michi ElastPQ point quantification shear wave elastography (2D-SWE) with a C5-2 MHz transducer. Multiple elastography samples are obtained. FINDINGS: PANCREAS: Normal. The visualized pancreatic head and body are normal in appearance. The remainder of the pancreas is obscured from visualization by the overlying bowel gas. ABDOMINAL AORTA: The proximal, middle, and distal aortic segments are normal in caliber. INFERIOR VENA CAVA: Visualized portions are normal. LIVER: The liver shows normal contour and increased echogenicity. No focal lesion or intrahepatic biliary duct dilatation. The right lobe measures 17.9 cm in length. The left lobe measures 12.8 cm in length. Portal flow is towards the liver (hepatopetal). Shear wave liver elastography median stiffness is 1.57 m/s (reference: normal median stiffness is 1.3 m/s or less). IQR/median stiffness to assess sampling precision is 0.08 (reference: good quality data set is IQR/median stiffness of 0.15 or less). GALLBLADDER: Surgically absent. COMMON BILE DUCT: Normal in caliber measuring 0.3 cm in diameter. RIGHT KIDNEY: Normal. No hydronephrosis. No renal calculi or focal parenchymal lesions. The kidney measures 13.7 cm in maximum dimension. LEFT KIDNEY: There is renal cortical thinning. No hydronephrosis. No renal calculi or focal parenchymal solid lesions. At the upper pole, a 1.0 cm benign, simple cyst is seen, which requires no imaging follow-up. The kidney measures 8.8 cm in maximum dimension. SPLEEN: Normal. The spleen measures 18.8 cm in maximum dimension. FREE FLUID: None. US/US abdomen comp w elastography IMPRESSION: 1. There is generalized increase in hepatic echotexture, consistent with fatty infiltration or hepatocellular disease. Please correlate clinically. No focal hepatic mass or intrahepatic biliary dilatation is seen. 2. There is mild hepatomegaly. 3. Liver elastography: In the absence of other known clinical signs, measurements rule out compensated advanced chronic liver disease. If there are known clinical signs, further testing may be needed for confirmation. 4. There is splenomegaly. REFERENCE: Society of Radiologists in Ultrasound Liver Stiffness Thresholds (2020): LIVER STIFFNESS THRESHOLDS: *Liver Stiffness equal or less than 1.3 m/s: High probability of being normal. *Liver Stiffness less than 1.7 m/s: In the absence of other known clinical signs, rules out compensated advanced chronic liver disease. *Liver Stiffness 1.7-2.1 m/s: Suggestive of compensated advanced chronic liver disease but need further test for confirmation. *Liver Stiffness over 2.1 m/s: Rules in compensated advanced chronic liver disease. *Liver Stiffness over 2.4 m/s: Suggestive of clinically significant portal hypertension. QUALITY OF DATA SET: *IQR/Median value equal or less than 0.15 implies a quality data set. *IQR/Median value over 0.15 implies a poor quality data set. SIGNIFICANT CHANGE FROM PRIOR EXAM: Significant change if liver stiffness measurement is 10% or greater from prior exam. OTHER CONSIDERATIONS: The stage of liver fibrosis may be overestimated in the setting of acute hepatitis, liver inflammation, elevated liver function tests, hepatic vascular congestion, obstructive cholestasis, non-fasting state, and infiltrative diseases such as amyloidosis and lymphoma. In some patients with NAFLD, the liver stiffness thresholds for compensated advanced chronic liver disease may be lower. In causes other than viral hepatitis and NAFLD, liver stiffness thresholds are not well established.
[2024-02-02 08:46] LABS: MANUAL DIFF FLAG NO
[2024-02-02 09:19] LABS: Basophils Percent Auto 0.2 % (0-2); Eosinophils Percent Auto 0.5 % (0-4); Hemoglobin 10.1 g/dl (12.0-16.0); Imm Gran Abs Auto 0.04 X10*3/uL (0.00-0.03); Lymphocytes Absolute Auto 0.8 X10*3/uL (1.2-4.9); Mean Corpuscular HGB Conc 31.6 g/dl (31.0-35.0); Mean Corpuscular Hemoglobin 24.5 pg (27.0-33.0); Mean Corpuscular Volume 77.5 fL (80.0-98.0); Mean Platelet Volume 9.6 fL (9.4-12.3); Monocytes Absolute Auto 0.2 X10*3/uL (0.1-1.2); Monocytes Percent Auto 5.9 % (2-11); Neutrophils Percent Auto 72.4 % (45-73); Platelet Count 196 X10*3/uL (160-400); Red Blood Count 4.13 X10*6/uL (4.20-5.50); White Blood Count 4.1 X10*3/uL (4.8-10.8)
[2024-02-02 09:25] LABS: Prothrombin Time 12.3 SEC (11.1-13.3)
[2024-02-02 10:07] LABS: Alanine Aminotransferase 10 U/L (0-31); Alkaline Phosphatase 47 U/L (39-117); Aspartate Amino Transferase 23 U/L (5-31); Bilirubin Direct 0.2 mg/dL (0.0-0.5); Bilirubin Total 0.5 mg/dL (0.0-1.0); Iron 49 mcg/dL (30-160); Percent Iron Saturation 12 % (15-50); Total Iron Binding Capacity 406 mcg/dL (228-428); Total Protein 7.1 g/dL (6.5-8.0); Unsaturated Iron Binding 357 ug/dL
[2024-02-02 10:22] LABS: Ferritin 34 ng/mL (10-250)
[2024-02-02 14:30] LABS: Folate 10.7 ng/mL (> or = 4.0); Vitamin B12 < 148 pg/mL (200-900)
[2024-02-03 17:18] LABS: Immunoglobulin A 137 mg/dL (70-320)
[2024-02-03 20:04] LABS: Gliadin Deamidated IgG Ab <1.0 U/mL
[2024-02-09 22:57] LABS: Transglutaminase Ab IgG <1.0 U/mL; Transglutaminase IgA <1.0 U/mL
[2024-02-10 11:54] LABS: Endomysial IgA Antibody Negative (Negative)
== END 2024-02-02 07:37 | disposition home or self-care (01) ==
LOC: HO.US 07:36
PROVIDERS: PCP Internal Medicine; Visit Provider Internal Medicine
DX: D50.9 Iron deficiency anemia, unspecified (principal); E53.8 Deficiency of other specified B group vitamins; K52.9 Noninfective gastroenteritis and colitis, unspecified; R63.4 Abnormal weight loss; K76.0 Fatty (change of) liver, not elsewhere classified
CPT/HCPCS: 36415; 76700; 76981; 80076; 82607; 82728; 82746; 82784; 83540; 85025; 85610; 86231; 86258; 86364

== ENCOUNTER 2024-02-09 10:10 | Outpatient (REF) | payer MEDICARE, SELFPAY ==
[2024-02-12 17:04] LABS: Intrinsic Factor Antibodies Positive (Negative)
[2024-02-15 14:58] LABS: Parietal Cell Antibody 99.8 Unit (<=20.0)
== END 2024-02-09 10:11 | disposition home or self-care (01) ==
LOC: HO.LAB 10:10
PROVIDERS: Visit Provider Internal Medicine
DX: E53.8 Deficiency of other specified B group vitamins (principal)
CPT/HCPCS: 36415; 83516; 86340

== ENCOUNTER 2024-04-13 10:19 | Outpatient (REF) | payer MEDICARE, SELFPAY ==
[2024-04-13 10:42] LABS: MANUAL DIFF FLAG NO
[2024-04-13 10:55] LABS: Basophils Percent Auto 0.4 % (0-2); Eosinophils Percent Auto 0.4 % (0-4); Hematocrit 35.4 % (37.0-47.0); Hemoglobin 11.8 g/dl (12.0-16.0); Imm Gran Abs Auto 0.04 X10*3/uL (0.00-0.03); Imm Gran Pct Auto 0.9 % (0.0-0.4); Lymphocytes Percent Auto 22.5 % (20-40); Mean Corpuscular HGB Conc 33.3 g/dl (31.0-35.0); Mean Corpuscular Hemoglobin 27.9 pg (27.0-33.0); Mean Corpuscular Volume 83.7 fL (80.0-98.0); Mean Platelet Volume 9.8 fL (9.4-12.3); Monocytes Absolute Auto 0.3 X10*3/uL (0.1-1.2); Monocytes Percent Auto 6.3 % (2-11); Neutrophils Absolute Auto 3.2 x10*3/uL (2.0-8.3); Neutrophils Percent Auto 69.5 % (45-73); Platelet Count 199 X10*3/uL (160-400); Red Blood Count 4.23 X10*6/uL (4.20-5.50); Red Cell Distribution Width 14.7 % (11.0-16.0); White Blood Count 4.6 X10*3/uL (4.8-10.8)
[2024-04-13 11:25] LABS: Iron 59 mcg/dL (30-160); Percent Iron Saturation 15 % (15-50); Total Iron Binding Capacity 401 mcg/dL (228-428); Unsaturated Iron Binding 342 ug/dL
[2024-04-13 11:42] LABS: Ferritin 45 ng/mL (10-250)
[2024-04-13 11:46] LABS: Vitamin B12 315 pg/mL (200-900)
[2024-04-16 21:58] LABS: Intrinsic Factor Antibodies Negative (Negative)
[2024-04-19 14:14] LABS: Parietal Cell Antibody 99.5 Unit (<=20.0)
== END 2024-04-13 10:20 | disposition home or self-care (01) ==
LOC: HO.LAB 10:19
PROVIDERS: PCP Internal Medicine; Visit Provider Internal Medicine
DX: E53.8 Deficiency of other specified B group vitamins (principal); D64.9 Anemia, unspecified
CPT/HCPCS: 36415; 82607; 82728; 83516; 83540; 85025; 86340

== ENCOUNTER 2024-05-03 09:49 | Day surgery (SDC) | payer MEDICARE, SELFPAY ==
[2024-04-27 16:45] VITALS: BMI 23.0
--- NOTE | 2024-05-02 08:22 | HO.ANESPROP2 ---
Documented by User: Indira Barker NP 05/02/24 13:59 HPI - Anesthesia Eval Consult details Narrative: 73yo F for Upper Endoscopy and Colonoscopy Follows [facility] [place] Card[place] yearly for CAD (total occlusion RCA with good collaterals) Coumadin for PE Follows Dr Clifton for vascular Smoker [facility] Active Problems Active Problems: All Active Problems Nicotine dependence, cigarettes, uncomplicated (Acute) Fracture of proximal end of left humerus (Acute) Pulmonary embolism (Acute) Current use of anticoagulant therapy (Acute) HTN (hypertension) (Acute) T2DM (type 2 diabetes mellitus) (Acute) CAD (coronary artery disease) (Acute) Mixed hyperlipidemia (Acute) Peripheral vascular disease (Acute) Kidney anomaly, congenital (Acute) Past Medical History Medical History Nicotine dependence, cigarettes, uncomplicated HTN (hypertension) T2DM (type 2 diabetes mellitus) CAD (coronary artery disease) Mixed hyperlipidemia Peripheral vascular disease Kidney anomaly, congenital H/O blood clots Family History Family History Father CVD (cardiovascular disease) Mother CVD (cardiovascular disease) Brother CVD (cardiovascular disease) Sister CVD (cardiovascular disease) Maternal Grandmother Diabetes Other No family history of cancer Surgical History Surgical History History of cholecystectomy H/O: hysterectomy H/O hand surgery History of tonsillectomy History of cataract surgery Social History Social History Household Members: Family and Children Housing: House Are you a primary long term care administrator to a significant other at home: 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 If so, by whom?: No Are you DNR?: No Advance Directives: No Advance Directives Information Provided: Yes Advance Directives on File: No Recently lost weight without trying: No Nutrition Risks: No Nutritional Risk service: No Current occupational status: retired Meds Allergies Allergy/AdvReac Type Severity Reaction Status Date / Time No Known Allergies Allergy Verified 03/23/24 09:41 Home Medications ?Medication ?Instructions ?Recorded ?Confirmed ?Last Taken ?Type atorvastatin 80 mg tablet 80 mg PO BEDTIME 04/18/20 03/23/24 04/17/20 19:00 History losartan 100 mg tablet 100 mg PO DAILY 04/18/20 03/23/24 05/03/24 08:00 History metformin 500 mg tablet,extended 1,000 mg PO BID 04/18/20 03/23/24 04/18/20 08:00 History release 24 hr metoprolol succinate 100 mg 100 mg PO DAILY 04/18/20 03/23/24 04/18/20 08:00 History tablet,extended release 24 hr blood sugar diagnostic #10 ea 12/05/20 03/23/24 Unknown History COVID-19 antigen test (Flowflex #1 ea 10/10/21 03/23/24 Unknown History COVID-19 Antigen Home Test kit) fenofibrate 160 mg tablet 160 mg PO DAILY 05/25/22 03/23/24 Unknown History Exam Height,Weight and Vital Signs: Height 5 ft 3 in Weight 58.967 kg Pertinent Lab Results Pertinent Lab Results: Laboratory Tests 03/23/24 04/13/24 09:40 10:40 WBC 4.6 L Hgb 11.8 L Hct 35.4 L Plt Count 199 Sodium 136 Potassium 4.5 Chloride 102 Carbon Dioxide 25 BUN 13 Creatinine 0.78 Assessment and Plan Assessment Anesthesia Assessment: Chart Reviewed Documented by User: Eros Mueller MD 05/03/24 11:22 [facility] Past Medical History Medical History Nicotine dependence, cigarettes, uncomplicated HTN (hypertension) T2DM (type 2 diabetes mellitus) CAD (coronary artery disease) Mixed hyperlipidemia Peripheral vascular disease Kidney anomaly, congenital H/O blood clots Family History Family History Father CVD (cardiovascular disease) Mother CVD (cardiovascular disease) Brother CVD (cardiovascular disease) Sister CVD (cardiovascular disease) Maternal Grandmother Diabetes Other No family history of cancer Family history of problems with anesthesia: No Surgical History Surgical History History of cholecystectomy H/O: hysterectomy H/O hand surgery History of tonsillectomy History of cataract surgery History of Problems with Anesthesia: No Social History Social History Household Members: Family and Children Housing: House Are you a primary long term care administrator to a significant other at home: 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 If so, by whom?: No Are you DNR?: No Advance Directives: No Advance Directives Information Provided: Yes Advance Directives on File: No Recently lost weight without trying: No Nutrition Risks: No Nutritional Risk service: No Current occupational status: retired Meds Allergies Allergy/AdvReac Type Severity Reaction Status Date / Time No Known Allergies Allergy Verified 03/23/24 09:41 Home Medications ?Medication ?Instructions ?Recorded ?Confirmed ?Last Taken ?Type atorvastatin 80 mg tablet 80 mg PO BEDTIME 04/18/20 03/23/24 04/17/20 19:00 History losartan 100 mg tablet 100 mg PO DAILY 04/18/20 03/23/24 05/03/24 08:00 History metformin 500 mg tablet,extended 1,000 mg PO BID 04/18/20 03/23/24 04/18/20 08:00 History release 24 hr metoprolol succinate 100 mg 100 mg PO DAILY 04/18/20 03/23/24 04/18/20 08:00 History tablet,extended release 24 hr blood sugar diagnostic #10 ea 12/05/20 03/23/24 Unknown History COVID-19 antigen test (Flowflex #1 ea 10/10/21 03/23/24 Unknown History COVID-19 Antigen Home Test kit) fenofibrate 160 mg tablet 160 mg PO DAILY 05/25/22 03/23/24 Unknown History Exam Airway Mallampati Class: II TM Dist: >3cm Neck ROM: Full Denture: Upper and Lower Heart: ok. see above. Lungs: ok Assessment and Plan Assessment Anesthesia Assessment: Anesthesia Plan Discussed Final Anesthetic Review Family History of Problems with Anesthesia: No History of Problems with Anesthesia: No NPO: Yes ASA Class: III Final Preanesthetic Review: No Changes in Pt Med Stat, Meds/Allgs Chart Reviewed, Consent Obtained/Reviewed and Anes Risks/Benef Reviewed Patient Risk: Intermediate Procedure Risk: Intermediate Anesthetic Plan Anesthetic Plan: Agree w/ Assess. and Plan Disposition: Standard PACU
[2024-05-03 10:38] VITALS: BMI 22.1
[2024-05-03 10:47] VITALS: BP 129/74; PULSE 90; RESP 20; TEMP 36.9; O2SAT 97
[2024-05-03 10:58] LABS: Glucose, Whole Blood 131 mg/dL (60-115)
[2024-05-03 12:27] VITALS: BP 139/67; PULSE 70; RESP 18; TEMP 36.3; O2SAT 99
--- NOTE | 2024-05-03 12:37 | PM.OP ---
Brief Operative Note Date of Service: 05/03/24 Pre-op diagnosis: Iron and B12 deficiency anemia, diarrhea Post-op diagnosis: other (R/O Celiac disease, Hiatal hernia, Gerd, Diverticulosis) Procedure: EGD with biopsies, Colonoscopy to the cecum and TI with biopsies Surgeon: Reji Moya MD Anesthesia: MAC Was an Supply Controller used for this Procedure?: No Estimated blood loss (mL): 2.0 Pathology: other (A. Descending duodenum B. EG Junction at 32cm C. Ascending colon D. Descending colon) Condition: stable Disposition: PACU
[2024-05-03 12:42] VITALS: BP 143/62; PULSE 76; RESP 16; O2SAT 99
[2024-05-03 12:57] VITALS: BP 150/68; PULSE 70; RESP 16; TEMP 36.3; O2SAT 98
--- NOTE | 2024-05-03 13:07 | OP_ITS ---
DATE OF SERVICE: 05/03/2024 SURGEON: Reji Moya MD INDICATIONS: The patient presents for evaluation of iron deficiency and B12 deficiency anemia, diarrhea, and personal history of a tubular adenoma of the colon. Full consent has been obtained from her for both procedures, including risks of bleeding and perforation. PREOPERATIVE DIAGNOSIS: POSTOPERATIVE DIAGNOSIS: PROCEDURE PERFORMED: Esophagogastroduodenoscopy with biopsies, and colonoscopy to the cecum and terminal ileum with biopsy. ESTIMATED BLOOD LOSS: COMPLICATIONS: ANESTHESIA: Monitored anesthesia care. ASSISTANTS: SPECIMENS: PREOPERATIVE DIAGNOSES: Iron deficiency and B12 deficiency anemia, diarrhea, personal history of tubular adenoma of the colon. POSTOPERATIVE DIAGNOSES: Iron deficiency and B12 deficiency anemia, diarrhea, personal history of tubular adenoma of the colon, rule out celiac disease, hiatal hernia with reflux, rule out microscopic colitis, diverticulosis, and internal hemorrhoids. DESCRIPTION OF PROCEDURE: The patient was placed in left decubitus position. The Olympus video gastroscope was passed in the posterior oropharynx and upper esophagus under direct vision. The scope was passed slowly to the distal esophagus. The gastroesophageal junction appeared at 32 cm. There was some slight irregularity consistent with reflux, but no evidence of any definitive Oseguera's esophagus and no evidence of any esophagitis. The scope entered the stomach. There was a moderate-sized hiatal hernia. The hiatal hernia mucosa appeared normal. The scope was advanced to the pylorus and the duodenum was cannulated to the descending portion. The duodenum including the bulb appeared normal without mass or ulceration. Biopsies were obtained from the 2nd and 3rd portions of duodenum. The scope was withdrawn back in the stomach. The gastric antrum and body appeared normal with good peristalsis. The scope was retroflexed, visualizing the proximal stomach carefully, which appeared normal, without any sign of mass or ulceration. The scope was straightened and withdrawn back to the esophagus. Biopsies were obtained at the EG junction at 32 cm. Proximal to this, the esophageal mucosa appeared normal. The scope was withdrawn from the patient. She was turned around for the colonoscopy. The digital rectal exam revealed no abnormalities. The Olympus video pediatric colonoscope was then entered into the rectum and advanced easily to the cecum. Once in the cecum, I did identify normal-appearing cecal pouch with appendiceal orifice and a normal-appearing ileocecal valve. The terminal ileum was cannulated and appeared normal. The scope was withdrawn back in the colon. The entire cecum and ileocecal valve appeared normal. The scope was slowly withdrawn assessing all mucosal surfaces carefully. Preparation was excellent. I did not visualize any sign of polyps, colitis, nor angiodysplasias. Random biopsies were obtained in the ascending and descending colon. There was a mild amount of sigmoid diverticulosis. In the rectum, scope was retroflexed, visualizing internal hemorrhoids, but no other pathology. The rectal mucosa appeared normal. The scope was straightened and withdrawn from the patient. She tolerated both procedures well and was returned to the recovery area in stable condition. IMPRESSION: 1. Hiatal hernia, gastroesophageal reflux. 2. Rule out celiac disease. 3. Rule out microscopic colitis. 4. Diverticulosis. 5. Internal hemorrhoids. PLAN: The results of the biopsies will be checked. She has been advised to continue omeprazole, her supplemental daily iron, and monthly B12 shots.. Her most recent hemoglobin had improved to 11.8 with a normal MCV on April 13. At that time, her iron was 59 with an iron saturation of 15% and a ferritin of 45. Her B12 was also slightly improved at 315. She did have a negative intrinsic factor antibody, but positive parietal cell antibody. She will be seen in followup in the office in regard to the anemia. As long as things remain stable, I do not think she would need any further diagnostic evaluation of that.. I do not think she will need any further screening colonoscopies given her age and today's negative exam. MD MAJOR Sanford/LOLA / [phone] MTDD
== END 2024-05-03 13:36 | disposition home or self-care (01) ==
PROVIDERS: PCP Internal Medicine; Visit Provider Internal Medicine
PROC: (CPT 45380; principal; 2024-05-03 11:00)
DX: D50.9 Iron deficiency anemia, unspecified (principal); Z86.0101 Personal history of adenomatous and serrated colon polyps; K57.30 Diverticulosis of large intestine without perforation or abscess without bleeding; K64.8 Other hemorrhoids; E53.8 Deficiency of other specified B group vitamins; R63.4 Abnormal weight loss; Z68.23 Body mass index [BMI] 23.0-23.9, adult; K52.9 Noninfective gastroenteritis and colitis, unspecified; K21.9 Gastro-esophageal reflux disease without esophagitis; K76.0 Fatty (change of) liver, not elsewhere classified; K44.9 Diaphragmatic hernia without obstruction or gangrene; I10 Essential (primary) hypertension; E78.5 Hyperlipidemia, unspecified; E78.1 Pure hyperglyceridemia; J44.9 Chronic obstructive pulmonary disease, unspecified; E11.9 Type 2 diabetes mellitus without complications; Z79.84 Long term (current) use of oral hypoglycemic drugs; Z79.899 Other long term (current) drug therapy; Z90.49 Acquired absence of other specified parts of digestive tract; Z98.890 Other specified postprocedural states; F17.210 Nicotine dependence, cigarettes, uncomplicated
CPT/HCPCS: 45380; 43239; 82947; 88305; 88313; 88342; J2003; J2704

== ENCOUNTER 2024-05-30 09:15 | Outpatient (REF) | payer MEDICARE, SELFPAY ==
[2024-05-30 10:55] LABS: Appearance Urine Clear; Color Urine Yellow; Glucose Urine UA Negative (Negative); Leukocyte Esterase Urine Moderate (2+) (Negative); Nitrite Urine Negative (Negative); PH 6.5 (5.0-9.0); Specific Gravity - Urine 1.015 (1.005-1.025); UMIC TRIGGER UA YES; Urine Blood Negative (Negative); Urine Ketones Negative (Negative); Urine Protein Negative (Neg-Trace)
[2024-05-30 11:12] LABS: Bacteria Urine 1+ (None Seen); Hyaline Casts Urine 0-2 /LPF (0-2); RBC Urine 0-2 /HPF (0-2); WBC Urine 0-5 /HPF (0-5)
[2024-05-30 11:14] LABS: Anion Gap 14 (12-20); Blood Urea Nitrogen 20 mg/dL (9-16); Calcium 10.3 mg/dL (8.4-10.2); Carbon Dioxide 26 mmol/L (22-29); Chloride 101 mmol/L (96-108); Estimated Glomerular Filt Rate > 60; Potassium 4.7 mmol/L (3.3-5.1); Sodium 136 mmol/L (135-145)
[2024-05-30 11:21] LABS: Creatinine Urine 55.42 mg/dL; Total Protein Urine Random < 7 mg/dL (<12)
== END 2024-05-30 09:16 | disposition home or self-care (01) ==
LOC: HO.CT 09:15
PROVIDERS: Absent Provider Internal Medicine Nephrology; PCP Internal Medicine; Visit Provider Physician Assistant Medical
DX: Z12.2 Encounter for screening for malignant neoplasm of respiratory organs (principal); F17.210 Nicotine dependence, cigarettes, uncomplicated; I10 Essential (primary) hypertension
CPT/HCPCS: 36415; 71271; 80051; 81001; 82310; 82565; 82570; 84156; 84520

== ENCOUNTER 2024-06-02 14:32 | Outpatient (AMB) | payer MEDICARE, SELFPAY ==
--- NOTE | 2024-06-02 14:36 | HO.NEPHOV ---
Vital Signs 06/02/24 14:39 Height 5 ft 3 in Weight 127 lb 4 oz BMI 22.5 BP 134/70 Blood Pressure Location Lt brachial Position Sitting Pulse 81 Pulse Source Pulse Oximeter Pulse Oximetry (%) 98 Oxygen Delivery Method Room Air Intake Visit Reasons: RTANE continue care-LVM Cement Fittings Maker Required: No Accompanied by: Self / Same As Patient Allergies No Known Allergies Allergy (Verified 06/02/24 14:42) HPI Comments Details: I had the pleasure of seeing Caryn in follow up of her unilateral small kidney and hypertension. She has vascular disease but does not have any active symptoms. She has H/O CAD and angiogram had showed collaterals. She does not have any chest pain, SOB, PND, orthopnea, pedal edema or syncope. She is still continuing to smoke. Her BP has been at goal. She is not a diabetic. She is not on any SGLT2i but on metformin. She does not take NSAID's and maintain good hydration. [facility] Medical History (Updated 06/02/24 @ 14:59 by Isacc Ko MD) Nicotine dependence, cigarettes, uncomplicated HTN (hypertension) T2DM (type 2 diabetes mellitus) CAD (coronary artery disease) Mixed hyperlipidemia Peripheral vascular disease Kidney anomaly, congenital H/O blood clots Surgical History History of cholecystectomy H/O: hysterectomy H/O hand surgery History of tonsillectomy History of cataract surgery Family History Father CVD (cardiovascular disease) Mother CVD (cardiovascular disease) Brother CVD (cardiovascular disease) Sister CVD (cardiovascular disease) Maternal Grandmother Diabetes Other No family history of cancer Social History Household Members: Family and Children Housing: House Are you a primary care transitions nurse to a significant other at home: Yes (pet care technician for niece) Do you presently have visiting nurse or other home services: No Patient Tobacco Use Status: Current everyday Tobacco user Cigarette Packs Per Day: 1 Cigarettes Per Day: 10 service: No Current occupational status: retired Review of Systems Const All systems reviewed & are unremarkable except as noted in HPI and below Physical Exam Vital Signs: Last Vital Signs Pulse 81 06/02/24 14:39 BP 134/70 06/02/24 14:39 Pulse Ox 98 06/02/24 14:39 Oxygen Delivery Method Room Air 06/02/24 14:39 BMI result Body Mass Index 22.5 Const General: comfortable and no acute distress Orientation/consciousness: patient oriented x3 HEENT Head: Yes normocephalic Mouth: Normal oral and palatal mucosa present Eyes EOM: EOMs intact bilaterally Neck Neck: Yes supple Resp Auscultation: clear to auscultation bilaterally Cardio Jugular venous distension: no JVD Rate: regular rate GI Palpation (GI): Soft to palpation Auscultation: normal bowel sounds General: Yes no CVA tenderness Back/Spine/Pelvis Back: no CVA tenderness Skin General skin exam: no rashes or lesions noted Neuro General: patient oriented x3 and moves all extremities Extrem General: Yes no pedal edema Results Reviewed Nephrology Results: Hgb 11.8 g/dl (12.0-16.0) L 04/13/24 WBC 4.6 X10*3/uL (4.8-10.8) L 04/13/24 Plt Count 199 X10*3/uL (160-400) 04/13/24 Sodium 136 mmol/L (135-145) 05/30/24 Potassium 4.7 mmol/L (3.3-5.1) 05/30/24 Chloride 101 mmol/L (96-108) 05/30/24 Carbon Dioxide 26 mmol/L (22-29) 05/30/24 BUN 20 mg/dL (9-16) H 05/30/24 Creatinine 0.80 mg/dL (0.5-1.4) 05/30/24 Calcium 10.3 mg/dL (8.4-10.2) H 05/30/24 Urine Protein Negative mg/dL (Neg-Trace) 05/30/24 Urine Creatinine 55.42 mg/dL 05/30/24 Protein/Creatinin Ratio TNP 05/30/24 Assessment & Plan Assessment & Plan (1) HTN (hypertension): Code(s): I10 - Essential (primary) hypertension Category: Medical Qualifiers: Hypertension type: renovascular hypertension Qualified Code(s): I15.0 - Renovascular hypertension (2) Small kidney, unilateral: Code(s): N27.0 - Small kidney, unilateral Category: Medical Plan 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 She has generalized vascular disease including PAD and CAD. She is a diabetic as well. She does not have any significant proteinuria. She is tolerating ARB with stable renal function. Her BP is at goal. She is a great candidate for SGLT2 i. I did not make any medication changes today. F/U lab work ordered. Answered all questions Orders: Orders Blood Urea Nitrogen 1 Year I15.0 - Renovascular hypertension, N27.0 - Small kidney, unilateral Creatinine 1 Year I15.0 - Renovascular hypertension, N27.0 - Small kidney, unilateral Electrolytes 1 Year I15.0 - Renovascular hypertension, N27.0 - Small kidney, unilateral Coding Level of Care Code Est Pt Level 4 (27061) Diagnoses Renovascular hypertension I15.0 Hypertension type: renovascular hypertension Small kidney, unilateral N27.0
[2024-06-02 14:39] VITALS: BP 134/70; PULSE 81; O2SAT 98; BMI 22.5
== END 2024-06-02 15:04 | disposition home or self-care (01) ==
PROVIDERS: PCP Internal Medicine; Visit Provider Internal Medicine Nephrology
DX: I15.0 Renovascular hypertension (principal); N27.0 Small kidney, unilateral
CPT/HCPCS: 99214

== ENCOUNTER → 2024-06-02 14:32 | Outpatient (BNVA) | payer MEDICARE, SELFPAY | PROVIDERS: PCP Internal Medicine; Visit Provider Internal Medicine Nephrology | DX: I15.0 Renovascular hypertension (principal); N27.0 Small kidney, unilateral; I25.10 Atherosclerotic heart disease of native coronary artery without angina pectoris; F17.210 Nicotine dependence, cigarettes, uncomplicated | CPT/HCPCS: 99212 ==

== ENCOUNTER 2024-07-20 11:08 | Outpatient (REF) | payer MEDICARE, SELFPAY ==
[2024-07-20 11:42] LABS: MANUAL DIFF FLAG NO
[2024-07-20 12:02] LABS: Basophils Percent Auto 0.3 % (0-2); Eosinophils Percent Auto 0.7 % (0-4); Hematocrit 33.4 % (37.0-47.0); Hemoglobin 11.1 g/dl (12.0-16.0); Imm Gran Abs Auto 0.08 X10*3/uL (0.00-0.03); Imm Gran Pct Auto 1.4 % (0.0-0.4); Lymphocytes Absolute Auto 1.5 X10*3/uL (1.2-4.9); Lymphocytes Percent Auto 25.5 % (20-40); Mean Corpuscular HGB Conc 33.2 g/dl (31.0-35.0); Mean Corpuscular Hemoglobin 28.2 pg (27.0-33.0); Mean Platelet Volume 9.6 fL (9.4-12.3); Monocytes Absolute Auto 0.3 X10*3/uL (0.1-1.2); Monocytes Percent Auto 5.8 % (2-11); Neutrophils Absolute Auto 3.9 x10*3/uL (2.0-8.3); Neutrophils Percent Auto 66.3 % (45-73); Platelet Count 219 X10*3/uL (160-400); Red Blood Count 3.93 X10*6/uL (4.20-5.50); Red Cell Distribution Width 13.2 % (11.0-16.0); White Blood Count 5.9 X10*3/uL (4.8-10.8)
--- OUTSIDE RECORDS SUMMARY | 2024-07-20 12:11 | XMS_ITS ---
Author Organization [facility] Address [address] [place] [address] Care Team Providers Care Strategy Execution Consultant Name Role Phone ADELINE RODGERS Primary Care Provider Reji Mcgrath [phone] REASON FOR VISIT B12 deficiency Encounters Encounter Location Date Provider Diagnosis [facility] [address] [place] [address] 07/17/2024 Reji Moya PLAN OF TREATMENT Next Appt Details Provider Name:Reji Moya , 10/03/2024 10:50:00 AM, [address], [address], [place], [address], Procedure Notes * Category Sub-Category Detail Notes B-12 Injection Lot Number #[id number] Expiration date Given by: hit clear then time stamp Dose 1,000 MCG Route IM Site _, Left arm
--- OUTSIDE RECORDS SUMMARY | 2024-07-20 12:11 | XMS_ITS ---
Author Organization [facility] Address [address] [place] [phone] Care Team Providers Care Tissue Rewinder Name Role Phone ADELINE RODGERS Primary Care Provider Reji Mcgrath [phone] REASON FOR VISIT B-12 shot Encounters Encounter Location Date Provider Diagnosis [facility] [address] [place] [phone] 07/17/2024 Reji Moya Anemia D64.9 and B12 deficiency E53.8 ASSESSMENTS Encounter Date Diagnosis Assessment Notes Treatment Notes Treatment Clinical Notes 07/17/2024 Anemia (ICD-10 - D64.9) 07/17/2024 B12 deficiency (ICD-10 - E53.8) PLAN OF TREATMENT Pending Test Test Name Order Date IRON + IBC (FE) 07/17/2024 CBC w DIFF 07/17/2024 Ferritin 07/17/2024 Vitamin B12 07/17/2024 Next Appt Details Provider Name:Reji Moya , 10/03/2024 10:50:00 AM, [address] [place] [address], [address], [place], [address],
--- OUTSIDE RECORDS SUMMARY | 2024-07-20 12:11 | XMS_ITS ---
Author Organization [facility] Address [address] [place] [address] Care Team Providers Care News Specialist Name Role Phone ADELINE RODGERS Primary Care Provider Reji Mcgrath [phone] REASON FOR VISIT B12 deficiency MEDICATIONS Medication SIG (Take, Route, Frequency, Duration) Notes Start Date End Date Status metFORMIN HCl ER 500 MG TAKE 2 TABLETS B Y MOUTH TWICE DAILY WITH MEALS Oral for 90 Active Atorvastatin Calcium 80 MG TAKE 1 TABLET BY MOUTH DAILY Oral for 30 Active Metoprolol Succinate ER 100 MG TAKE 1 TABLET BY MOUTH DAILY Oral for 90 Active Isosorbide Mononitrate ER 60 MG TAKE 1 TABLET BY MOUTH DAILY Oral for 90 Active Tylenol 325 MG 2 tablets Orally prn prn Active Losartan Potassium 100 MG 1 tablet Orall y Once a day Active Fenofibrate 145 MG 1 tablet Orally Once a day Active Encounters Encounter Location Date Provider Diagnosis [facility] [address] [place] [phone] 06/19/2024 Reji Moya B12 deficiency E53.8 ASSESSMENTS Encounter Date Diagnosis Assessment Notes Treatment Notes Treatment Clinical Notes 06/19/2024 B12 deficiency (ICD-10 - E53.8) PLAN OF TREATMENT Next Appt Details Provider Name:Reji Moya , 10/03/2024 10:50:00 AM, [address] [place] [address], [address] [facility], [place], [address], MEDICATIONS ADMINISTERED Medication Instructions Date of Administration Dosage Notes B-12 06/19/2024 1000 mL
--- OUTSIDE RECORDS SUMMARY | 2024-07-20 12:11 | XMS_ITS | Patient Health Record ---
Author Organization [facility] Address [address] [place] [address] Care Team Providers Care Oven Dumper Name Role Phone NARCISO CHICAS Primary Care Provider Reji Mcgrath [phone] ALLERGIES No Known Allergies RESULTS Component Value Reference Range Notes Complete Blood Count Auto Di ff Reviewed date:02/03/2024 09:06:10 AM Interpretation: Performing Lab:[facility], [address] [place] [phone] Notes/Report: White Blood Count 4.1 4.8-10.8 X10*3/uL Red Blood Count 4.13 4.20-5.50 X10*6/uL Hemoglobin 10.1 12.0-16.0 g/dl Hematocrit 32.0 37.0-47.0 % Mean Corpuscular Volume 77.5 80.0-98.0 fL Mean Corpuscular Hemoglobin 24.5 27.0-33.0 pg Mean Corpuscular HGB Conc 31.6 31.0-35.0 g/dl Red Cell Distribution Width 18.0 11.0-16.0 % Platelet Count 196 160-400 X10*3/uL Mean Platelet Volume 9.6 9.4-12.3 fL Neutrophils Percent Auto 72.4 45-73 % Imm Gran Pct Auto 1.0 0.0-0.4 % Lymphocytes Percent Auto 20.0 20-40 % Monocytes Percent Auto 5.9 2-11 % Eosinophils Percent Auto 0.5 0-4 % Basophils Percent Auto 0.2 0-2 % NRBC Pct Auto 0.0 0.0-0.2 /100WBC Neutrophils Absolute Auto 3.0 2.0-8.3 x10*3/u L Imm Gran Abs Auto 0.04 0.00-0.03 X10*3/uL Lymphocytes Absolute Auto 0.8 1.2-4.9 X10*3/u L Monocytes Absolute Auto 0.2 0.1-1.2 X10*3/uL Eosinophils Absolute Auto 0.0 0.0-0.4 X10*3/u L Basophils Absolute Auto 0.0 0.0-0.2 X10*3/uL NRBC Abs Auto 0.000 0.0-0.012 X10*3/uL Prothrombin Time INR Reviewed date:02/02/2024 06:56:04 PM Interpretation: Performing Lab:[facility], [address] [place] [phone] Notes/Report: Prothrombin Time 12.3 11.1-13.3 SEC INTERNATIONAL NORM RATIO 1.0 0.9-1.1 INTERNATIONAL NORMALIZED RATIO (INR) REFERENCE RANGES Reference Range For patients not on anticoagulant therapy: 0.9 - 1.1 INR ranges for oral anticoagulant therapy: For prevention and treatment of venous thrombosis and pulmonary embolism: 2.0 - 3.0 For acute myocardial infarction with aspirin therapy: 2.0 - 3.0 For acute myocardial infarction without aspirin therapy: 3.0 - 4.0 For patients with mechanical prosthetic heart valves: 2.5 - 3.5 Liver Panel Reviewed date:02/02/2024 11:18:58 PM Interpretation: Performing Lab:[facility], [address] [place] [phone] Notes/Report: Bilirubin Total 0.5 0.0-1.0 mg/dL Bilirubin Direct 0.2 0.0-0.5 mg/dL Aspartate Amino Transferase 23 5-31 U/L Alanine Aminotransferase 10 0-31 U/L Total Protein 7.1 6.5-8.0 g/dL Albumin Level 4.0 3.5-5.0 g/dL Alkaline Phosphatase 47 39-117 U/L IRON PROFILE Reviewed date:02/02/2024 11:19:08 PM Interpretation: Performing Lab:[facility], [address] [place] [phone] Notes/Report: Iron 49 30-160 mcg/dL Total Iron Binding Capacity 406 228-428 mcg/d L Percent Iron Saturation 12 15-50 % Unsaturated Iron Binding 357 Ferritin Reviewed date:02/02/2024 11:19:17 PM Interpretation: Performing Lab:[address] [phone] Notes/Report: Ferritin 34 10-250 ng/mL Vitamin B12 Reviewed date:02/05/2024 10:35:25 PM Interpretation: Performing Lab:[facility], [address] [place] [phone] Notes/Report: Vitamin B12 < 148 200-900 pg/mL NORMAL 200-900 PG/ML INDETERMINATE 160-199 PG/ML DEFICIENT < 160 PG/ML Folate Reviewed date:02/02/2024 11:20:20 PM Interpretation: Performing Lab:[address] [phone] Notes/Report: Folate 10.7 > or = 4.0 ng/mL Reference Values: > or = 4.0 ng/mL < 4.0 ng/mL suggests folate deficiency Methotrexate, aminopterin and folinic acid (leucovorin) are chemotherapeutic agents whose molecular structures are similar to folate; therefore, the Lead Section Supervisor folate assay cannot be used for patients using these drugs. Immunoglobulin A Reviewed date:02/11/2024 07:03:56 PM Interpretation: Performing Lab:[address] [phone] Notes/Report: Immunoglobulin A 137 70-320 mg/dL THIS TEST WAS PERFORMED AT: [facility] [address] [place] [phone] KORI FORDE MD Transglutaminase Ab IgG Reviewed date:02/11/2024 07:04:03 PM Interpretation: Performing Lab:[facility], [address] [place] [phone] Notes/Report: Transglutaminase Ab IgG <1.0 Value Interpretation ----- <15.0 Antibody not detected > or = 15.0 Antibody detected THIS TEST WAS PERFORMED AT: [facility] [address] [place] [phone] KORI FORDE MD Transglutaminase IgA Reviewed date:02/11/2024 07:04:11 PM Interpretation: Performing Lab:[facility], [address] [place] [phone] Notes/Report: Transglutaminase IgA <1.0 Value Interpretation ----- <15.0 Antibody not detected > or = 15.0 Antibody detected THIS TEST WAS PERFORMED AT: [facility] [address] [place] [phone] KORI FORDE MD Gliadin Ab Panel Reviewed date:02/11/2024 07:04:19 PM Interpretation: Performing Lab:[facility], [address] [place] [phone] Notes/Report: Gliadin Deamidated IgA Ab 1.0 Value Interpretation ----- <15.0 Antibody not detected > or = 15.0 Antibody detected Gliadin Deamidated IgG Ab <1.0 Value Interpretation ----- <15.0 Antibody not detected > or = 15.0 Antibody detected THIS TEST WAS PERFORMED AT: [facility] [address] [place] [phone] KORI FORDE MD Endomysial IgA rflx Titer Reviewed date:02/11/2024 07:04:30 PM Interpretation: Performing Lab:[facility], [address] [place] [phone] Notes/Report: Endomysial IgA Antibody Negative Negative THIS TEST WAS PERFORMED AT: [facility]/[address] PATRICE BAKER MD,PHD Endomysial Titer TNP US abdomen comp w elastograp hy (Not yet reviewed by provider) Interpretation: Performing Lab: Notes/Report: [address] [address] Ultrasound Report Signed Patient: Caryn Cotton MR#: [id number] : 1950 Acct:[id number] Age/Sex: 73 / F ADM Date: 02/02/24 Loc: HO.US Attending Dr: Reji Moya MD Ordering Physician: Reji Moya MD Date of Service: 02/02/24 Procedure(s): US abdomen comp w elastography Accession Number(s): [id number] cc: Juan Francisco Stuart MD; Reji Moya MD EXAMINATION: US COMPLETE ABDOMEN WITH LIVER ELASTOGRAPHY CLINICAL INFORMATION: COMPARISON: None available. TECHNIQUE: Real-time imaging of the abdominal viscera. Noninvasive ultrasound liver fibrosis assessment is performed using Michi ElastPQ point quantification shear wave elastography (2D-SWE) with a C5-2 MHz transducer. Multiple elastography samples are obtained. FINDINGS: PANCREAS: Normal. The visualized pancreatic head and body are normal in appearance. The remainder of the pancreas is obscured from visualization by the overlying bowel gas. ABDOMINAL AORTA: The proximal, middle, and distal aortic segments are normal in caliber. INFERIOR VENA CAVA: Visualized portions are normal. LIVER: The liver shows normal contour and increased echogenicity. No focal lesion or intrahepatic biliary duct dilatation. The right lobe measures 17.9 cm in length. The left lobe measures 12.8 cm in length. Portal flow is towards the liver (hepatopetal). Shear wave liver elastography median stiffness is 1.57 m/s (reference: normal median stiffness is 1.3 m/s or less). IQR/median stiffness to assess sampling precision is 0.08 (reference: good quality data set is IQR/median stiffness of 0.15 or less). GALLBLADDER: Surgically absent. COMMON BILE DUCT: Normal in caliber measuring 0.3 cm in diameter. RIGHT KIDNEY: Normal. No hydronephrosis. No renal calculi or focal parenchymal lesions. The kidney measures 13.7 cm in maximum dimension. LEFT KIDNEY: There is renal cortical thinning. No hydronephrosis. No renal calculi or focal parenchymal solid lesions. At the upper pole, a 1.0 cm benign, simple cyst is seen, which requires no imaging follow-up. The kidney measures 8.8 cm in maximum dimension. SPLEEN: Normal. The spleen measures 18.8 cm in maximum dimension. FREE FLUID: None. US/US abdomen comp w elastography IMPRESSION: 1. There is generalized increase in hepatic echotexture, consistent with fatty infiltration or hepatocellular disease. Please correlate clinically. No focal hepatic mass or intrahepatic biliary dilatation is seen. 2. There is mild hepatomegaly. 3. Liver elastography: In the absence of other known clinical signs, measurements rule out compensated advanced chronic liver disease. If there are known clinical signs, further testing may be needed for confirmation. 4. There is splenomegaly. REFERENCE: Society of Radiologists in Ultrasound Liver Stiffness Thresholds (2020): LIVER STIFFNESS THRESHOLDS: *Liver Stiffness equal or less than 1.3 m/s: High probability of being normal. *Liver Stiffness less than 1.7 m/s: In the absence of other known clinical signs, rules out compensated advanced chronic liver disease. *Liver Stiffness 1.7-2.1 m/s: Suggestive of compensated advanced chronic liver disease but need further test for confirmation. *Liver Stiffness over 2.1 m/s: Rules in compensated advanced chronic liver disease. *Liver Stiffness over 2.4 m/s: Suggestive of clinically significant portal hypertension. QUALITY OF DATA SET: *IQR/Median value equal or less than 0.15 implies a quality data set. *IQR/Median value over 0.15 implies a poor quality data set. SIGNIFICANT CHANGE FROM PRIOR EXAM: Significant change if liver stiffness measurement is 10% or greater from prior exam. OTHER CONSIDERATIONS: The stage of liver fibrosis may be overestimated in the setting of acute hepatitis, liver inflammation, elevated liver function tests, hepatic vascular congestion, obstructive cholestasis, non-fasting state, and infiltrative diseases such as amyloidosis and lymphoma. In some patients with NAFLD, the liver stiffness thresholds for compensated advanced chronic liver disease may be lower. In causes other than viral hepatitis and NAFLD, liver stiffness thresholds are not well established. Dictated By: Arun Richard MD Signed By: <Electronically signed by Arun Richard MD in OV> 02/17/24 1815 DD/ 0830 TD/TT: Channel Process Supervisor: CANELO Intrinsic Factor Antibodies Reviewed date:02/12/2024 11:09:08 PM Interpretation: Performing Lab:[facility], [address] [place] [phone] Notes/Report: Intrinsic Factor Antibodies Positive Negative For additional information, please refer to http://education.[email or web address]/faq/IFAB (This link is being provided for informational/ educational purposes only.) THIS TEST WAS PERFORMED AT: [facility]/[address] PATRICE BAKER MD,PHD Parietal Cell Antibody Reviewed date:02/21/2024 11:51:55 PM Interpretation: Performing Lab:[facility], [address] [place] [phone] Notes/Report: Parietal Cell Antibody 99.8 <=20.0 Unit Reference Range: <= 20.0 Negative 20.1 - 24.9 Equivocal >= 25.0 Positive Anti-gastric parietal cell antibodies (Anti-GPA) were previously tested for by indirect immunofluorescence (IF) using mouse stomach as a substrate. Identification of the specific antibody target as H+/K+ ATPase protein (a gastric proton pump) has led to the development of an EVI based assay. Antibodies to this protein are present in approximately 80% of patients with pernicious anemia and a small percentage of general adult population. The latter percentage increases with age and may reflect the presence of atrophic gastritis. A negative test does not exclude a diagnosis of pernicious anemia. A test for intrinsic factor blocking antibody (IFab) may provide serological evidence in support of the diagnosis in some of these patients. THIS TEST WAS PERFORMED AT: [facility]/[address] [phone] PATRICE BAKER MD,PHD Complete Blood Count Auto Di ff Reviewed date:04/20/2024 04:58:42 PM Interpretation: Performing Lab:[facility], [address] [place] [phone] Notes/Report: White Blood Count 4.6 4.8-10.8 X10*3/uL Red Blood Count 4.23 4.20-5.50 X10*6/uL Hemoglobin 11.8 12.0-16.0 g/dl Hematocrit 35.4 37.0-47.0 % Mean Corpuscular Volume 83.7 80.0-98.0 fL Mean Corpuscular Hemoglobin 27.9 27.0-33.0 pg Mean Corpuscular HGB Conc 33.3 31.0-35.0 g/dl Red Cell Distribution Width 14.7 11.0-16.0 % Platelet Count 199 160-400 X10*3/uL Mean Platelet Volume 9.8 9.4-12.3 fL Neutrophils Percent Auto 69.5 45-73 % Imm Gran Pct Auto 0.9 0.0-0.4 % Lymphocytes Percent Auto 22.5 20-40 % Monocytes Percent Auto 6.3 2-11 % Eosinophils Percent Auto 0.4 0-4 % Basophils Percent Auto 0.4 0-2 % NRBC Pct Auto 0.0 0.0-0.2 /100WBC Neutrophils Absolute Auto 3.2 2.0-8.3 x10*3/u L Imm Gran Abs Auto 0.04 0.00-0.03 X10*3/uL Lymphocytes Absolute Auto 1.0 1.2-4.9 X10*3/u L Monocytes Absolute Auto 0.3 0.1-1.2 X10*3/uL Eosinophils Absolute Auto 0.0 0.0-0.4 X10*3/u L Basophils Absolute Auto 0.0 0.0-0.2 X10*3/uL NRBC Abs Auto 0.000 0.0-0.012 X10*3/uL IRON PROFILE Reviewed date:04/13/2024 12:35:10 PM Interpretation: Performing Lab:[address] [phone] Notes/Report: Iron 59 30-160 mcg/dL Total Iron Binding Capacity 401 228-428 mcg/d L Percent Iron Saturation 15 15-50 % Unsaturated Iron Binding 342 Ferritin Reviewed date:04/13/2024 12:35:02 PM Interpretation: Performing Lab:[address] [phone] Notes/Report: Ferritin 45 10-250 ng/mL Vitamin B12 Reviewed date:04/13/2024 12:34:55 PM Interpretation: Performing Lab:[address] [phone] Notes/Report: Vitamin B12 315 200-900 pg/mL NORMAL 200-900 PG/ML INDETERMINATE 160-199 PG/ML DEFICIENT < 160 PG/ML Intrinsic Factor Antibodies Reviewed date:04/16/2024 11:13:16 PM Interpretation: Performing Lab:[address] [phone] Notes/Report: Intrinsic Factor Antibodies Negative Negative For additional information, please refer to http://education.[email or web address]/faq/IFAB (This link is being provided for informational/ educational purposes only.) THIS TEST WAS PERFORMED AT: [facility] [address] PATRICE BAKER MD,PHD Parietal Cell Antibody Reviewed date:04/20/2024 04:57:43 PM Interpretation: Performing Lab:[facility], [address] [place] [phone] Notes/Report: Parietal Cell Antibody 99.5 <=20.0 Unit Reference Range: <= 20.0 Negative 20.1 - 24.9 Equivocal >= 25.0 Positive Anti-gastric parietal cell antibodies (Anti-GPA) were previously tested for by indirect immunofluorescence (IF) using mouse stomach as a substrate. Identification of the specific antibody target as H+/K+ ATPase protein (a gastric proton pump) has led to the development of an EVI based assay. Antibodies to this protein are present in approximately 80% of patients with pernicious anemia and a small percentage of general adult population. The latter percentage increases with age and may reflect the presence of atrophic gastritis. A negative test does not exclude a diagnosis of pernicious anemia. A test for intrinsic factor blocking antibody (IFab) may provide serological evidence in support of the diagnosis in some of these patients. THIS TEST WAS PERFORMED AT: [facility]/[employer] [id number] [place] [address] PATRICE BAKER MD,PHD Glucose, Whole Blood Reviewed date:05/04/2024 05:59:50 PM Interpretation: Performing Lab:[address] [phone] Notes/Report: Glucose, Whole Blood 131 60-115 mg/dL METER # : [id number] Pathology Reviewed date:07/19/2024 06:44:25 PM Interpretation: Performing Lab:[facility], [address] [place] [phone] Notes/Report: Complete Blood Count Auto Di ff (Not yet reviewed by provider) Interpretation: Performing Lab:[facility], [address] [place] [phone] Notes/Report: White Blood Count 5.9 4.8-10.8 X10*3/uL Red Blood Count 3.93 4.20-5.50 X10*6/uL Hemoglobin 11.1 12.0-16.0 g/dl Hematocrit 33.4 37.0-47.0 % Mean Corpuscular Volume 85.0 80.0-98.0 fL Mean Corpuscular Hemoglobin 28.2 27.0-33.0 pg Mean Corpuscular HGB Conc 33.2 31.0-35.0 g/dl Red Cell Distribution Width 13.2 11.0-16.0 % Platelet Count 219 160-400 X10*3/uL Mean Platelet Volume 9.6 9.4-12.3 fL Neutrophils Percent Auto 66.3 45-73 % Imm Gran Pct Auto 1.4 0.0-0.4 % Lymphocytes Percent Auto 25.5 20-40 % Monocytes Percent Auto 5.8 2-11 % Eosinophils Percent Auto 0.7 0-4 % Basophils Percent Auto 0.3 0-2 % NRBC Pct Auto 0.0 0.0-0.2 /100WBC Neutrophils Absolute Auto 3.9 2.0-8.3 x10*3/u L Imm Gran Abs Auto 0.08 0.00-0.03 X10*3/uL Lymphocytes Absolute Auto 1.5 1.2-4.9 X10*3/u L Monocytes Absolute Auto 0.3 0.1-1.2 X10*3/uL Eosinophils Absolute Auto 0.0 0.0-0.4 X10*3/u L Basophils Absolute Auto 0.0 0.0-0.2 X10*3/uL NRBC Abs Auto 0.000 0.0-0.012 X10*3/uL REASON FOR REFERRAL Referring Provider First Name NARCISO Referring Provider Last Name JUAN FRANCISCO Referring Provider Speciality General Pr actice Referred Organization [facility] Referred Provider Reji Moya Referred Address [address] [place] [address],[place], [place],[address],[place] Referred Provider Specialty Gastroentero logy General Notes Teodora Harris 024 07:57:10 AM EDT > Call Dr. Narciso Chicas at [phone] for a [facility] referral with Dr. Moya on 01-21-2024, Teodora Harris 12/09/2023 09:25:16 AM EDT > requested, Teodora Harris 12/22/2023 09:33:09 AM EDT > spoke with louise at dr grijalva office and requested referral again, Teodora Harris 12/22/2023 09:38:42 AM EDT > call back [phone] if a referral has not been received Referral Priority Routine MEDICATIONS Medication SIG (Take, Route, Frequency, Duration) [...] BY MOUTH DAILY Oral for 90 Active Losartan Potassium 100 MG 1 tablet Orall y Once a day Active Fenofibrate 145 MG 1 tablet Orally Once a day Active Tylenol 325 MG 2 tablets Orally prn prn Active SOCIAL HISTORY Sex Assigned At : Social History Observation Description Sex Assigned At Unknown Alcohol Screen Question Answer Notes Did you have a drink containing alcohol in the p ast year? No Points 0 Interpretation Negative PROBLEMS Problem Type ICD Code Onset Dates Problem Status W/U Status Risk SNOMED Code Notes Problem Gastro-esophageal reflux disease without esophagitis (K21.9) Active confirmed Gastro-esophage al reflux disease without esophagitis (944202343) Problem Diverticulosis of large intestine without perforation or abscess without bleeding (K57.30) Active confirmed Diverticul ar disease of colon (924540832) Problem Abnormal weight loss (R63.4) Active confirmed Abnormal weight loss (085876576) Problem Iron deficiency anemia (D50.9) Active confirmed Iron deficien cy anemia (91247375) Problem Anemia (D64.9) Active confirmed Anemia (967645866) Problem B12 deficiency (E53.8) Active confirmed Vitamin B12 deficiency (non anemic) (53645592) Problem Chronic diarrhea (K52.9) Active confirmed Chronic diarrhea (894504899) Problem Fatty infiltration of liver (K76.0) Active confirmed Fatty liver (542213541) VITAL SIGNS Blood pressure diastolic 00 mm Hg 01/21/2024 Height 63 in 01/21/2024 Blood pressure systolic 00 mm Hg 01/21/2024 Weight 130 lbs 01/21/2024 BMI 23.03 kg/m2 01/21/2024 Encounters Encounter Location Date Provider Diagnosis [facility] Outpatient [address] [place], [place] [id number] 03/02/2024 Reji Moya [facility] Outpatient [address] [place], [place] [phone] 03/02/2024 Reji Moya [facility] Outpatient [address] [place], [place] [id number] 05/03/2024 Reji Moya Diarrhea R19.7 ; Iro n deficiency anemia D50.9 ; Diverticulosis of large intestine without perforation or abscess without bleeding K57.30 ; Other hemorrhoids K64.8 ; Gastro-esophageal reflux disease without esophagitis K21.9 and Hiatal hernia K44.9 [facility] [address] [place] [phone] 01/21/2024 Reji Moya Iron deficiency anem ia D50.9 ; B12 deficiency E53.8 ; Chronic diarrhea K52.9 ; Abnormal weight loss R63.4 and Fatty infiltration of liver K76.0 [facility] [address] [place] [address] 02/03/2024 Reji Moya B12 deficiency E53.8 [facility] [address] [place] [address] 02/09/2024 Reji Moya [facility] [address] [place] [address] 02/17/2024 Reji Moya B12 deficiency E53.8 and Iron deficiency anemia D50.9 [facility] [address] [place] [phone] 03/21/2024 Reji Moya B12 deficiency E53.8 [facility] [address] [place] [id number] 04/13/2024 Reji Moya B12 deficiency E53.8 [facility] [address] [place] [id number] 05/17/2024 Reji Moya B12 deficiency E53.8 [facility] [address] [place] [phone] 06/19/2024 Reji Moya B12 deficiency E53.8 [facility] [address] [place] [phone] 07/17/2024 Reji Moya [facility] [address] [place] [phone] 01/30/2024 Reji Moya [facility] [address] [place] [address] 02/02/2024 Reji Moya [facility] [address] [place] [address] 02/02/2024 Reji Moya Vitamin B12 deficien cy E53.8 [facility] [address] [place] [id number] 02/15/2024 Reji Moya [facility] [address] [place] [address] 02/15/2024 Reji Moya [facility] [address] [place] [phone] 03/21/2024 Reji Moya Anemia D64.9 [facility] [address] [place] [phone] 07/17/2024 Reji Moya Anemia D64.9 and B12 deficiency E53.8 ASSESSMENTS Encounter Date Diagnosis Assessment Notes Treatment Notes Treatment Clinical Notes 05/03/2024 Diarrhea (ICD-10 - R19.7) 05/03/2024 Iron deficiency anemia (ICD-10 - D50.9) 01/21/2024 Iron deficiency anemia (ICD-10 - D50.9) Do not take the Metformin the night before or on the morning of the procedures Resume your Iron with 1 pill every day for the anemia. Stop Iron for 1 week before the procedures 01/21/2024 B12 deficiency (ICD-10 - E53.8) 02/03/2024 B12 deficiency (ICD-10 - E53.8) 02/17/2024 B12 deficiency (ICD-10 - E53.8) 03/21/2024 B12 deficiency (ICD-10 - E53.8) 04/13/2024 B12 deficiency (ICD-10 - E53.8) 05/17/2024 B12 deficiency (ICD-10 - E53.8) 06/19/2024 B12 deficiency (ICD-10 - E53.8) 02/02/2024 Vitamin B12 deficiency (ICD-10 - E53.8) 03/21/2024 Anemia (ICD-10 - D64.9) 07/17/2024 Anemia (ICD-10 - D64.9) 07/17/2024 B12 deficiency (ICD-10 - E53.8) 05/03/2024 Diverticulosis of large intestine without perforation or abscess without bleeding (ICD-10 - K57.30) 01/21/2024 Chronic diarrhea (ICD-10 - K52.9) 02/17/2024 Iron deficiency anemia (ICD-10 - D50.9) 05/03/2024 Other hemorrhoids (ICD-10 - K64.8) 01/21/2024 Abnormal weight loss (ICD-10 - R63.4) 05/03/2024 Gastro-esophageal reflux disease without esophagitis (ICD-10 - K21.9) 01/21/2024 Fatty infiltration o f liver (ICD-10 - K76.0) 05/03/2024 Hiatal hernia (ICD-1 0 - K44.9) PLAN OF TREATMENT Pending Test Test Name Order Date LIVER PROFILE 06/11/2013 LIVER PROFILE 01/21/2024 IRON + IBC (FE) 07/17/2024 IRON + IBC (FE) 01/11/2013 IRON + IBC (FE) 01/21/2024 IRON + IBC (FE) 03/21/2024 FERRITIN 01/11/2013 CBC w DIFF 07/17/2024 CBC w DIFF 01/21/2024 CBC w DIFF 03/21/2024 CBC w DIFF 01/11/2013 PROTHROMBIN TIME (PT, INR) 01/11/2013 HEPATITIS B PROFILE 01/11/2013 HEPATITIS C ANTIBODY 01/11/2013 [id number] (A1A) 01/11/2013 CELIAC PANEL #10 02/26/2013 CELIAC PANEL #10 01/21/2024 ENDOMYSIAL IGA 02/26/2013 MITOCHONDRIAL AB 01/11/2013 SMOOTH MUSCLE ANTIBODIES 01/11/2013 TRANSGLUTAMINASE AB IGA 02/26/2013 TRANSGLUTAMINASE AB IGG 02/26/2013 FLUOR. ANTINUCLEAR AB SCREEN (JAYLON) 12/18 Complete Blood Count Auto Diff Prothrombin Time INR 01/21/2024 Ferritin 01/21/2024 Ferritin 07/17/2024 Ferritin 03/21/2024 Vitamin B12 03/21/2024 Vitamin B12 01/21/2024 Vitamin B12 07/17/2024 Folate 01/21/2024 US abdomen comp w elastography 4 US abdomen comp w elastography 4 Future Test Test Name Order Date COLONOSCOPY 01/11/2013 UPPER GI ENDOSCOPY 01/21/2024 COLONOSCOPY 01/21/2024 Next Appt Details Provider Name:Reji Moya , 10/03/2024 10:50:00 AM, [address], [address], [place], [address], Insurance Providers Payer Name Payer Address Payer Phone Subscriber Number Group Number Insured Name Patient Relationship to Insured Coverage Start Date Coverage End Date [employer] [address] [place] [phone] [id number] CARYN COTTON Self - patient is the insured MEDICATIONS ADMINISTERED Medication Instructions Date of Administration Dosage Notes B12 02/03/2024 1000 ug B-12 02/09/2024 1000 ug B-12 02/17/2024 1000 ug B12 03/21/2024 1000 ug B-12 04/13/2024 1000 mL B12 05/17/2024 1000 mL B-12 06/19/2024 1000 mL MEDICAL (GENERAL) HISTORY Medical History History ICD Code Screening colonoscopy 05-02-2007--1 tubu lar adenoma removed HTN Hyperlipidemia and hypertriglyceridemia Denies PR,DM,CVA,Lung disease,renal dise ase 1 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 Intra-op liver biopsy in 04/2013 showed significant steatosis, but no significant inflammation nor fibrosis--LFT's 09/15/13 WNL except for an ALT of 32--previous liver w/u completely negative--liver tests normal in 03/2014 EGD in 03/2013 neg except for a small HH- duodenal bx WNL Colonoscopy in 03/2013 neg for polyps Blood clot to lung in 10/2013--sees teen-- NIDDM COPD Iron deficiency anemia in spring Surgical History Surgery Date(Month/Year) Complete hysterectomy Right hand surgery Cholecystectomy 04/2013 Knee surgery right 2018 Cataracts
[2024-07-20 12:31] LABS: Iron 63 mcg/dL (30-160); Percent Iron Saturation 17 % (15-50); Total Iron Binding Capacity 363 mcg/dL (228-428); Unsaturated Iron Binding 300 ug/dL
[2024-07-20 12:51] LABS: Vitamin B12 673 pg/mL (200-900)
[2024-07-20 12:52] LABS: Ferritin 79 ng/mL (10-250)
== END 2024-07-20 11:09 | disposition home or self-care (01) ==
LOC: HO.LAB 11:08
PROVIDERS: PCP Internal Medicine; Visit Provider Internal Medicine
DX: D64.9 Anemia, unspecified (principal); E53.8 Deficiency of other specified B group vitamins
CPT/HCPCS: 36415; 82607; 82728; 83540; 85025

== ENCOUNTER 2024-08-02 10:47 | Outpatient (AMB) | payer MEDICARE, SELFPAY ==
[2024-08-02 10:53] VITALS: BP 138/78; PULSE 64; BMI 21.9
--- NOTE | 2024-08-02 10:53 | A.OFFVIS_ITS ---
Vital Signs 08/02/24 10:53 Height 5 ft 3 in Weight 123 lb 7.342 oz BMI 21.9 BP 138/78 Blood Pressure Location Lt brachial Position Sitting Pulse 64 Pulse Source Monitor Intake Visit Reasons: 1 yr f/up Allergies No Known Allergies Allergy (Verified 06/02/24 14:42) Medication List - Last Reconciled 08/02/24 by Jacob Dunham MD atorvastatin 80 mg PO BEDTIME blood sugar diagnostic As directed bid testing COVID-19 antigen test (Flowflex COVID-19 Antigen Home Test kit) As directed cyanocobalamin (vitamin B-12) 1,000 mcg IM .qmonthly fenofibrate 160 mg PO DAILY ferrous sulfate 325 mg PO BID isosorbide mononitrate ER 60 mg PO DAILY losartan 100 mg PO DAILY metformin ER 1,000 mg PO BID metoprolol succinate ER 100 mg PO DAILY omeprazole 20 mg PO BID HPI Comments Details: Caryn comes for follow-up. She has been doing well from cardiac perspective. Continues to have symptoms of leg tiredness and pain with walking in the mall. Symptoms resolve after resting. She has not had any rest lower extremity discomfort or discoloration of her toes. Denies any exertional chest pain. Denies any worsening shortness of breath. Unfortunately continues to smoke. Takes all her medications. Denies any orthopnea, PND, leg edema. I do not see any recent lipid panel in the system. [facility] Medical History Nicotine dependence, cigarettes, uncomplicated HTN (hypertension) T2DM (type 2 diabetes mellitus) CAD (coronary artery disease) Mixed hyperlipidemia Peripheral vascular disease Kidney anomaly, congenital H/O blood clots Surgical History History of cholecystectomy H/O: hysterectomy H/O hand surgery History of tonsillectomy History of cataract surgery Family History Father CVD (cardiovascular disease) Mother CVD (cardiovascular disease) Brother CVD (cardiovascular disease) Sister CVD (cardiovascular disease) Maternal Grandmother Diabetes Other No family history of cancer Social History Household Members: Family and Children Housing: House Are you a primary animal care technician to a significant other at home: Yes (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) Do you presently have visiting nurse or other home services: No Patient Tobacco Use Status: Current everyday Tobacco user Cigarette Packs Per Day: 1 Cigarettes Per Day: 10 service: No Current occupational status: retired Review of Systems Const Denies weakness ENT Denies dizziness Card Denies chest pain, Denies chest pain with activity, Denies syncope, Denies rapid heart rate, Denies pedal edema, Denies edema, Denies leg edema, Denies lightheadedness, Denies palpitations, Denies dyspnea, Denies dyspnea on exertion and Denies orthopnea Resp Denies cough, Denies dyspnea and Denies dyspnea on exertion GI Denies hematochezia and Denies change in stool character Musc Denies abnormal gait, Denies muscle cramps, Denies muscle weakness, Denies numbness, Denies radiating pain into limb and Denies tingling Neuro Denies abnormal gait, Denies dizziness, Denies syncope, Denies numbness, Denies tingling and Denies weakness Endo Denies palpitations Physical Exam Vital Signs: Last Vital Signs Pulse 64 08/02/24 10:53 BP 138/78 08/02/24 10:53 BMI result Body Mass Index 21.9 Const General: cooperative, comfortable, no acute distress, alert and awake Nutritional Appearance: thin Orientation/consciousness: patient oriented x3 Limitations: no limitations Neck Neck: Yes trachea midline, Yes supple and Yes no JVD Resp Effort & Inspection: normal respiratory effort Auscultation: no rales, no wheezes and diminished lung sounds Cardio Jugular venous distension: no JVD Palpation: normal PMI Rate: regular rate Rhythm: regular rhythm Heart sounds: S1 normal heart sound present and S2 normal heart sound present GI Auscultation: normal bowel sounds Skin General skin exam: no rashes or lesions noted Neuro General: patient oriented x3 and no focal motor deficits Extrem General: Yes no clubbing, cyanosis or edema Psych Appearance: grossly normal Office Procedures EKG Details: EKG shows normal sinus rhythm with normal EKG 40290-[id number], Complete Assessment & Plan Assessment & Plan (1) CAD (coronary artery disease): Comment: Chronic total occlusion of RCA with good awxa-[id number] collaterals Code(s): I25.10 - Atherosclerotic heart disease of [place] coronary artery without angina pectoris Category: Medical Plan: CAD without any new symptoms at current point in time. Continue aggressive medical therapy. Needs lipid panel in near future. Recommend this in the near future to guide therapy. Continue low-dose aspirin therapy for life. Complete smoking cessation advised, but not currently interested. Continue aggressive diabetes management being pursue through office. Goal hemoglobin A1c less than 7%. Goal blood pressure less than 130/84. See below. Continue aggressive control. (2) HTN (hypertension): Code(s): I10 - Essential (primary) hypertension Category: Medical Qualifiers: Hypertension type: renovascular hypertension Qualified Code(s): I15.0 - Renovascular hypertension Plan: Hypertension which is currently well optimized advised to monitor blood pressure at home maintain a log. Goal blood pressure less than 130/84. Low-salt diet was advised. Encouraged to continue maintain activity level as. Continue current therapy. Will follow up in the clinic in 1 year's time, sooner p.r.n.. Thank you for allowing me to partake in her care Coding Level of Care Code Est Pt Level 4 (95142) Complex EM visit Add On G2211 Diagnoses CAD (coronary artery disease) I25.10 Renovascular hypertension I15.0 Hypertension type: renovascular hypertension CPT Codes EKG - CPT: 51236-[id number], Complete ([id number])
== END 2024-08-02 11:10 | disposition home or self-care (01) ==
PROVIDERS: PCP Internal Medicine; Visit Provider Internal Medicine Cardiovascular Disease
DX: I11.9 Hypertensive heart disease without heart failure (principal); I25.10 Atherosclerotic heart disease of native coronary artery without angina pectoris
CPT/HCPCS: 93010; 99214; G2211

== ENCOUNTER → 2024-08-02 10:47 | Outpatient (BNVA) | payer MEDICARE, SELFPAY | PROVIDERS: PCP Internal Medicine; Visit Provider Internal Medicine Cardiovascular Disease | DX: I25.10 Atherosclerotic heart disease of native coronary artery without angina pectoris (principal); I15.0 Renovascular hypertension; F17.210 Nicotine dependence, cigarettes, uncomplicated | CPT/HCPCS: 93005; 99212 ==

== ENCOUNTER 2024-10-22 14:08 | Emergency (ER) | payer MEDICARE, SELFPAY ==
--- NOTE | ~2024-10-22 | CT_ITS ---
CLINICAL HISTORY: upper and mid abd pain, low back pain CT abdomen and pelvis without contrast Comparison: None Findings: No consolidation or effusion. Mild bibasilar interstitial pulmonary opacity. Gallbladder is contracted and demonstrates multiple calculi within its lumen. Severe left renal atrophy. Nonobstructing 2 mm right interpolar renal calculus. Nonobstructing 4 mm right superior pole renal calculus. Solid organs are otherwise within normal limits. No bowel obstruction, pneumoperitoneum, or pneumatosis. Colonic fluid is present. Severe arterial calcifications. Pelvic contents unremarkable. Appendix is not seen. No acute fracture. Mild chronic appearing T11 compression fracture. IMPRESSION: 1. Colonic fluid, suggestive of gastroenteritis. 2. Nonobstructing right renal calculi. 3. Cholelithiasis. This document has been electronically signed by: Dmitri Espinosa MD on 10/22/2024 18:49:40
[2024-10-22 14:10] VITALS: BP 123/90; PULSE 88; RESP 16; TEMP 36.8; O2SAT 98; BMI 21.7
--- NOTE | 2024-10-22 14:11 | ED_ITS ---
HPI - General Adult General Chief complaint: Back Pain/Injury Stated complaint: back pain, hip pain Time Seen by Provider: 10/22/24 17:08 Source: patient Limitations: no limitations History of Present Illness HPI narrative: 73-year-old female who has a history of hypertension, diabetes, previous history of PE, presents for evaluation of back pain and abdominal pain. Patient states symptoms initially began this past when she went to lift up a microwave that was on a porch. As she picked it up and turned she feeling cracking throughout her entire spine and severe pain. She had audible popping as well. Patient states she was unable to carry the microwave afterwards. Since that time she has been having difficulty getting out of bed and moving about. She has been taking Tylenol with minimal relief. She has had a history of back pain in the past. She denies any direct trauma. No bowel or bladder incontinence. Patient states that following several days she has had decreased p.o. intake as well as diffuse upper abdominal pain. She has not had any bowel or bladder incontinence. No nausea or vomiting. Related Data Home Medications ?Medication ?Instructions ?Recorded ?Confirmed atorvastatin 80 mg tablet 80 mg PO BEDTIME 04/18/20 09/11/24 losartan 100 mg tablet 100 mg PO DAILY 04/18/20 09/11/24 metformin 500 mg tablet,extended 1,000 mg PO BID 04/18/20 09/11/24 release 24 hr metoprolol succinate 100 mg 100 mg PO DAILY 04/18/20 09/11/24 tablet,extended release 24 hr blood sugar diagnostic #10 ea 12/05/20 09/11/24 COVID-19 antigen test (Flowflex #1 ea 10/10/21 09/11/24 COVID-19 Antigen Home Test kit) fenofibrate 160 mg tablet 160 mg PO DAILY 05/25/22 09/11/24 cyanocobalamin (vitamin B-12) 1,000 mcg IM .qmonthly 06/02/24 09/11/24 1,000 mcg/mL injection solution Previous Rx's ?Medication ?Instructions ?Recorded isosorbide mononitrate 60 mg 60 mg PO DAILY #90 tabs 02/10/24 tablet,extended release 24 hr ferrous sulfate 325 mg (65 mg 325 mg PO BID #60 tabs 07/25/24 iron) tablet omeprazole 20 mg capsule,delayed 20 mg PO BID #60 caps 09/21/24 release cephalexin 500 mg capsule 500 mg PO TID #21 caps 10/22/24 methocarbamol 750 mg tablet 750 mg PO TID PRN muscle spasm #20 10/22/24 tabs Allergies Allergy/AdvReac Type Severity Reaction Status Date / Time No Known Allergies Allergy Verified 10/22/24 14:13 Review of Systems 2 ENT: Denies neck pain Respiratory: Respiratory: Denies pain on inspiration Gastrointestinal: Gastrointestinal: Reports abdominal pain, Denies nausea and Denies vomiting Genitourinary: Genitourinary: Denies dysuria Musculoskeletal: Musculoskeletal: Reports back pain, Denies atrophy, Denies deformity and Denies neck pain PMFSH Past Medical History Medical History Nicotine dependence, cigarettes, uncomplicated HTN (hypertension) T2DM (type 2 diabetes mellitus) CAD (coronary artery disease) Mixed hyperlipidemia Peripheral vascular disease Kidney anomaly, congenital H/O blood clots Surgical History History of cholecystectomy H/O: hysterectomy H/O hand surgery History of tonsillectomy History of cataract surgery Family History Family History Father CVD (cardiovascular disease) Mother CVD (cardiovascular disease) Brother CVD (cardiovascular disease) Sister CVD (cardiovascular disease) Maternal Grandmother Diabetes Other No family history of cancer Social History Social History Household Members: Family and Children Housing: House Are you a primary aged or disabled carer to a significant other at home: Yes (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) Do you presently have visiting nurse or other home services: No Patient Tobacco Use Status: Current everyday Tobacco user Cigarette Packs Per Day: 1 Cigarettes Per Day: 10 Advance Directives: Yes Advance Directives Information Provided: Yes Advance Directives on File: No Do you have a plan to hurt others: No Plan service: No Current occupational status: retired Physical Exam ED Vital Signs: Vital Signs - 24 hr 10/22/24 14:10 10/22/24 18:09 10/22/24 19:35 Temperature 98.3 F 98.6 F 97.8 F Pulse Rate 88 76 84 Respiratory Rate 16 16 16 Blood Pressure 123/90 H 155/52 H 149/71 H Pulse Oximetry 98 95 96 Oxygen Delivery Method Room Air Room Air Room Air BMI result Body Mass Index 21.7 Const General: cooperative Neck Other: No spinous, paraspinous or paravertebral tenderness Neck: Yes full ROM Resp Other: lung sounds clear throughout. No wheezes rales or rhonchi Cardio Rate: regular rate Rhythm: regular rhythm GI Other: mild diffuse upper and mid abdominal tenderness. No peritoneal signs. Negative Mcnair's sign. No CVAT bilaterally Back/Spine/Pelvis Other: mild diffuse lumbar muscle region tenderness. Worse with twisting. Mild tenderness alone L4-L5 region without step-off or crepitus. No ecchymosis. 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 Positive straight leg raise bilaterally. Course Course Course Narrative: RME performed by Eri Gongora PA-C. Patient is a 73 year old assigned female at presenting to the emergency department with back pain. Patient states she went to pickling operator a microwave off of a porch and turned - then heard a loud crack throughout her entire spine and both of her hips on 10/19/2024. Detailed physical exam and review of systems are deferred to the distribution systems superintendent. Patient placed back in the waiting room pending room availability. Reevaluation(s) Reevaluation #1: Reviewed all labs, no acute process. Urinalysis suggestive of infection, will treat with Keflex. Patient is agreeable to trial of Robaxin for her back pain. CT does not reveal evidence of acute fracture. The patient was aware of her T11 compression fracture which she reports was from about 10 years ago. Colonic fluid suggesting gastroenteritis however the patient has not had any nausea or vomiting or diarrhea. She will continue to monitor symptoms. 7:[address] findings with the reading radiologist regarding comments of gallbladder since the patient reports her gallbladder has been removed. Radiologist, Dr. Espinosa, reports that this is likely gallbladder remnant but there is no evidence of inflammation. These findings were reviewed with the patient. In addition, reviewed all discharge instructions. No further questions at this time. Medical Decision Making Medical Decision Making MDM Narrative: 73-year-old female acute on chronic low back pain as well as no abdominal pain after lifting a microwave. She is hemodynamically stable and afebrile. Check labs, CT of the abdomen and pelvis to further evaluate abdominal pain as well as compression fracture. Differential Diagnosis Differential Diagnoses: The differential diagnosis associated with the presentation includes Pancreatitis Dyspepsia Bowel obstruction Compression fracture Admission/Observation Consideration of admission/observation: Escalation of care including admission/observation considered Lab Data MDM Lab Attestation statement: I reviewed the patient's lab results. 10/22/24 17:38 10/22/24 17:38 Labs: Lab Results 10/22/24 Range/Units 17:38 WBC 5.2 (4.8-10.8) X10*3/uL RBC 4.61 (4.20-5.50) X10*6/uL Hgb 12.6 (12.0-16.0) g/dl Hct 38.6 (37.0-47.0) % MCV 83.7 (80.0-98.0) fL MCH 27.3 (27.0-33.0) pg MCHC 32.6 (31.0-35.0) g/dl RDW 13.8 (11.0-16.0) % Plt Count 254 D (160-400) X10*3/uL MPV 9.6 (9.4-12.3) fL Immature Gran % (Auto) 0.4 (0.0-0.4) % Neut % (Auto) 62.7 (45-73) % Lymph % (Auto) 25.0 (20-40) % Bureau % (Auto) 10.7 (2-11) % Eos % (Auto) 0.4 (0-4) % Baso % (Auto) 0.8 (0-2) % Lymph # (Auto) 1.3 (1.2-4.9) X10*3/uL Bureau # (Auto) 0.6 (0.1-1.2) X10*3/uL Eos # (Auto) 0.0 (0.0-0.4) X10*3/uL Baso # (Auto) 0.0 (0.0-0.2) X10*3/uL Abs Immat Gran (auto) 0.02 (0.00-0.03) X10*3/uL Absolute Neuts (auto) 3.2 (2.0-8.3) x10*3/uL Absolute Nucleated RBC 0.000 (0.0-0.012) X10*3/uL Nucleated RBC % (auto) 0.0 (0.0-0.2) /100WBC Sodium 136 (135-145) mmol/L Potassium 4.2 (3.3-5.1) mmol/L Chloride 104 (96-108) mmol/L Carbon Dioxide 23 (22-29) mmol/L Anion Gap 13 (12-20) BUN 26 H (9-16) mg/dL Creatinine 0.87 (0.5-1.4) mg/dL Estim Creat Clear Calc 47.6 Estimated GFR > 60 Random Glucose 98 (60-115) mg/dL Calcium 9.4 (8.4-10.2) mg/dL Total Bilirubin 0.7 (0.0-1.0) mg/dL AST 29 (5-31) U/L ALT 12 (0-31) U/L Alkaline Phosphatase 49 (39-117) U/L Total Protein 7.7 (6.5-8.0) g/dL Albumin 4.3 (3.5-5.0) g/dL Lipase 16 (8-78) U/L Urine Color Dark Yellow Urine Appearance Clear Urine pH 5.0 (5.0-9.0) Ur Specific [place] >= 1.030 H (1.005-1.025) Urine Protein Trace (Neg-Trace) mg/dL Urine Glucose (UA) Negative (Negative) mg/dL Urine Ketones Trace (Negative) mg/dL Urine Blood Negative (Negative) Urine Nitrite Negative (Negative) Ur Leukocyte Esterase Small (1+) H (Negative) Urine RBC 3-5 H (0-2) /HPF Urine WBC 6-10 H (0-5) /HPF Ur Squamous Epith Cells 6-10 (0-2) /HPF Urine Bacteria 1+ (None Seen) Hyaline Casts 0-2 (0-2) /LPF Chronic Conditions Patient?s care impacted by: Diabetes and Hypertension Discharge Plan Discharge Clinical Impression: Acute UTI Back pain Qualifiers: Back pain location: low back pain Chronicity: acute Back pain laterality: m idline Sciatica presence: without sciatica Qualified Code(s): M54.50 - Low back pain, unspecified Abdominal pain Qualifiers: Abdominal location: generalized Qualified Code(s): R10.84 - Generalized abdominal pain Patient Disposition: Home, Self-Care Instructions: Urinary Tract Infection in Women (ED), Abdominal Pain (ED), Back Pain (ED) Additional Instructions: As discussed; Rest. Avoid strenuous activity. Robaxin as directed for pain, muscle spasm. Keflex as directed. Finish all antibiotics for urinary tract infection. You may continue to take Tylenol Follow-up with your primary care provider. Call this week to schedule a follow- up appointment. Return to the emergency department if you have any worsening of symptoms, or any concerns. Get well soon! Prescriptions: New cephalexin 500 mg capsule 500 mg PO TID Qty: 21 0RF methocarbamol 750 mg tablet 750 mg PO TID PRN (Reason: muscle spasm) Qty: 20 0RF No Action isosorbide mononitrate 60 mg tablet extended release 24 hr 60 mg PO DAILY Qty: 90 3RF atorvastatin 80 mg tablet 80 mg PO BEDTIME metoprolol succinate 100 mg tablet extended release 24 hr 100 mg PO DAILY losartan 100 mg tablet 100 mg PO DAILY metformin 500 mg tablet extended release 24 hr 1,000 mg PO BID ferrous sulfate 325 mg (65 mg iron) Tablet 325 mg PO BID Qty: 60 5RF omeprazole 20 mg Capsule,Delayed Release(Dr/Ec) 20 mg PO BID Qty: 60 4RF (DME) blood sugar diagnostic Strip See Rx Instructions .ROUTE .MEDSUPPLY Qty: 10 Rx Instructions: As directed bid testing (DME) Flowflex COVID-19 Ag Home Test Kit See Rx Instructions .ROUTE .MEDSUPPLY Qty: 1 Rx Instructions: As directed fenofibrate 160 mg tablet 160 mg PO DAILY cyanocobalamin (vitamin B-12) 1,000 mcg/mL solution 1,000 mcg IM .qmonthly Print Language: Nauruan
--- OUTSIDE RECORDS SUMMARY | 2024-10-22 17:18 | XMS_ITS | Clinical Summary ---
Author Organization [facility] Address [address] [place] [address] Phone Care Team Providers Care Installation & Maintenance Executive Name Role Phone Juan Francisco Stuart MD Primary Care Provider [phone] Allergies No known active allergies Medications atorvastatin (LIPITOR) 80 MG tablet Take 1 tablet by mouth 1 (one) time each day Active isosorbide mononitrate (IMDUR) 60 MG 24 hr tablet Take 1 tablet by mouth 1 (one) time each day Active losartan (COZAAR) 100 MG tablet Take 1 tablet by mouth 1 (one) time each day Active metFORMIN (GLUCOPHAGE) 500 MG tablet Take 2 tablets by mouth 2 (two) times a day Active metoprolol succinate XL (TOPROL-XL) 100 MG 24 hr tablet Take 1 tablet by mouth 1 (one) time each day Active omega-3 acid ethyl esters (LOVAZA) 1 g capsule Take 2 capsules by mouth 2 (two) times a day Active warfarin (COUMADIN) 5 MG tablet Take 1 tablet by mouth 1 (one) time each day 2.5mg 5 days a week/ 2 days 5mg Active fenofibrate (TRIGLIDE) 160 MG tablet Take 160 mg by mouth 1 (one) time each day 2 Active Cholecalciferol (Vitamin D3) 1.25 MG (57309 UT) capsule Take 1 capsule by mouth 1 (one) time per week 2 Active Active Problems Problem Noted Date Diagnosed Date Atrophy of kidney 04/02/2021 Benign essential hypertension 04/02/2021 Small kidney 04/02/2021 Tobacco dependence syndrome 04/02/2021 Hypertension 04/02/2021 Family History Medical History Relation Comments Diabetes Child 1 Hypertension Child 2 Heart disease Father Stroke Mother Hypertension Sibling 1 Heart disease Sibling 2 Relation Status Comments Child 1 Child 2 Father Mother Alive Sibling 1 Sibling 2 Social History Tobacco Use Types Packs/Day Years Used Date Smoking Tobacco: Every Day Smokeless Tobacco: Never Tobacco Cessation:Ready to Q uit: Not Asked; Counseling Given: Not Answered Alcohol Use Standard Drinks/Week Comments Yes 0 (1 standard drink = 0.6 oz pure alcohol) Alcoholic Drinks/day: Occasional social drink Comments Unknown Sex and Gender Information Value Date Recorded Sex Assigned at Not on file Legal Sex Female 5:06 PM EST Gender Identity Not on file Sexual Orientation Not on file Last Filed Vital Signs Vital Sign Reading Time Taken Comments Blood Pressure 112/62 04/21/2023 3:55 PM EDT Pulse 88 04/21/2023 3:55 PM EDT Temperature - - Respiratory Rate - - Oxygen Saturation 98% 04/21/2023 3:55 PM EDT Inhaled Oxygen Concentration - - Weight 59.6 kg (131 lb 6.4 oz) 04/01/2022 1:04 P M EDT Height 160 cm (5' 3 ) 04/03/2020 12:00 PM EDT Body Mass Index 23.28 04/03/2020 12:00 PM EDT Plan of Treatment Health Maintenance Due Date Last Done Comments Breast Cancer Screening 1950 Pneumococcal Vaccine: 65+ Ye ars (1 of 2 - PCV) 1956 Colorectal Cancer Screening: Annual FOBT 11/03/1999 Colorectal Cancer Screening: Colonoscopy 11/03/1999 Colorectal Cancer Screening: Sigmoidoscopy 11/03/1999 Influenza Vaccine (#1) 2024 Hepatitis B Vaccine Aged Out No longe r eligible based on patient's age to complete this topic Insurance [employer] Care Teams Installation & Maintenance Executive Relationship Specialty Start Date End Date Juan Francisco Stuart MD [address] [place] [address] PCP - General 07/29/20
--- OUTSIDE RECORDS SUMMARY | 2024-10-22 17:18 | XMS_ITS ---
Author Organization [facility] Address [address] [place] [id number] Care Team Providers Care Corncob Pipe Supervisor Name Role Phone ADELINE RODGERS Primary Care Provider Rjei Mcgrath [facility] [phone] REASON FOR VISIT B12 deficiency Encounters Encounter Location Date Provider Diagnosis [facility] [address] [place] [phone] 07/17/2024 Reji Moya Plan Of Treatment No Information Procedure Notes * Category Sub-Category Detail Notes B-12 Injection Lot Number #[id number] Expiration date Given by: Teodora Harris 025 08:26:08 AM EST > given by Indira on 07-17-2024 im left arm 1000 mcg Dose 1,000 MCG Route IM Site _, Left arm Progress Notes * MAN DURAND ADOB: [birth year] (73 yo F)Acc No.[id number]:07/17/2024 SHOT Patient:?MAN DURAND Provider:?Reji Moya MD :1950???Age:73 Y???Sex:Female D ate:07/17/2024 Address:[address] [place] [address] Pcp:ADELINE RODGERS Subjective: * Chief Complaints: * ???1. B12 deficiency. * Medical History:? Objective: Assessment: Plan: * Treatment: * Procedures:?B-12 Injection:?Lot Number?#[id number].?Expiration?date .?Given by:?Teodora Harris 07/27/2024 08:26:08 AM EST > given by Indira on 07-17-2024 im left arm 1000 mcg.?Dose?1,000 MCG.?Route?IM.?Site?_, Left arm.? * Procedure Codes:?65905 THER/ PROPH/DIAG INJ, SC/IM, J3420 INJ VIT B-12 CYNOCOBLMN TO 1000 MCG * * Sign off status: Completed true * Provider:?Reji Moya MD Date:? 024 Generated for Manoj galvan/Kimi/Quan on:?10/22/2024 05:18 PM EDT
--- OUTSIDE RECORDS SUMMARY | 2024-10-22 17:18 | XMS_ITS ---
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 Name Role Phone ADELINE RODGERS Primary Care Provider Reji Mcgrath Unavailable [phone] Allergies No Known Allergies REASON FOR VISIT Patient presents today for iron def anemia Medications Medication SIG (Take, Route, Frequency, Duration) Notes Start Date End Date Status metFORMIN HCl ER 500 MG TAKE 2 TABLETS B Y MOUTH TWICE DAILY WITH MEALS Oral for 90 Active Tylenol 325 MG 2 tablets Orally prn prn Active Fenofibrate 145 MG 1 tablet Orally Once a day Active Losartan Potassium 100 MG 1 tablet Orall y Once a day Active Iron (Ferrous Sulfate) 325 (65 Fe) MG 1 tablet Orally twce a day Active Isosorbide Mononitrate ER 60 MG TAKE 1 TABLET BY MOUTH DAILY Oral for 90 Active Metoprolol Succinate ER 100 MG TAKE 1 TABLET BY MOUTH DAILY Oral for 90 Active Atorvastatin Calcium 80 MG TAKE 1 TABLET BY MOUTH DAILY Oral for 30 Active Social History Alcohol Screen Question Answer Notes Did you have a drink containing alcohol in the p ast year? No Points 0 Interpretation Negative AUDIT-C (Standard) Question Answer Notes Did you have a drink contain ing alcohol in the past year? Yes How often did you have a dri nk containing alcohol in the past year? Never (0 point) How many drinks did you have on a typical day when you were drinking in the past year? 1 or 2 drinks (0 point) How often did you have six o r more drinks on one occasion in the past year? Never (0 point) Points 0 Interpretation Negative Section Notes: Smoker; no sig. alcohol Vital Signs Blood pressure systolic 111 mm Hg 10/04/19 25 Blood pressure diastolic 11 mm Hg 025 Height 63 in 10/03/2024 Weight 125.8 lbs 10/03/2024 BMI 22.28 kg/m2 10/03/2024 Encounters Encounter Location Date Provider Diagnosis [facility] [address] [place] [address] 10/03/2024 Reji Moya Anemia D64.9 ; B12 deficiency E53.8 ; Diarrhea R19.7 ; Iron deficiency anemia D50.9 ; Diverticulosis of large intestine without perforation or abscess without bleeding K57.30 ; Other hemorrhoids K64.8 ; Gastro-esophageal reflux disease without esophagitis K21.9 ; Hiatal hernia K44.9 and Fatty infiltration of liver K76.0 Assessments Encounter Date Diagnosis (ICD Code) Assessment Notes Treatment Notes Treatment Clinical Notes Section Notes 10/03/2024 Anemia (ICD-10 - D64.9) Continue the Iron daily or twice a day and continue the B12 shots every 2 or 3 months Overall, Caryn appears to be doing well in general, as well as specifically from a GI standpoint. She is not having any particularly active or worrisome GI complaints at this time. Her previous GI symptoms of both reflux and intermittent diarrhea have seemingly resolved. The workup with last year's GI procedures was negative for any problems such as inflammatory bowel disease or celiac disease. I did not find any specific cause of her anemia with the endoscopies, although many times patients with a hiatal hernia and reflux may develop an iron deficiency anemia on that basis. She is presently asymptomatic in regard to the reflux and I advised her that if she is indeed off omeprazole that she could certainly remain off of it for the time being. Her previous anemia has improved on the supplemental iron and B12. She may very well have a component of pernicious anemia in regard to the low B12 and parietal cell antibodies, and I advised her to continue her supplemental B12 via the parenteral route for the time being. She did receive a B12 shot today and I advised her to have them every 2 to 3 months either with myself or through your office. I did advise her to continue the iron at least once a day as well. Given all of her recent laboratories I do not think any repeat laboratories are presently needed. Her history of fatty liver seems quite stable at this time given the ultrasound report from last year and the most recent liver profile that was completely normal. I do not think this needs any specific follow-up nor treatment on my part. Based on the otherwise negative colonoscopy I do not think she will need any further screening colonoscopies going forward. At this point, if things remain stable, I advised Caryn that she could see me again on a prn basis. Again, I did advise her to certainly receive her periodic B12 shots in my office, or in your office if that is more convenient. Caryn was comfortable with this plan. Thank you again for allowing me to have participated in Caryn's care. I shall continue to keep you advised of her progress as needed. Please do not hesitate to contact me if I can be of any further assistance in the future. 10/03/2024 B12 deficiency (ICD-10 - E53.8) Overall, Caryn appears to be doing well in general, as well as specifically from a GI standpoint. She is not having any particularly active or worrisome GI complaints at this time. Her previous GI symptoms of both reflux and intermittent diarrhea have seemingly resolved. The workup with last year's GI procedures was negative for any problems such as inflammatory bowel disease or celiac disease. I did not find any specific cause of her anemia with the endoscopies, although many times patients with a hiatal hernia and reflux may develop an iron deficiency anemia on that basis. She is presently asymptomatic in regard to the reflux and I advised her that if she is indeed off omeprazole that she could certainly remain off of it for the time being. Her previous anemia has improved on the supplemental iron and B12. She may very well have a component of pernicious anemia in regard to the low B12 and parietal cell antibodies, and I advised her to continue her supplemental B12 via the parenteral route for the time being. She did receive a B12 shot today and I advised her to have them every 2 to 3 months either with myself or through your office. I did advise her to continue the iron at least once a day as well. Given all of her recent laboratories I do not think any repeat laboratories are presently needed. Her history of fatty liver seems quite stable at this time given the ultrasound report from last year and the most recent liver profile that was completely normal. I do not think this needs any specific follow-up nor treatment on my part. Based on the otherwise negative colonoscopy I do not think she will need any further screening colonoscopies going forward. At this point, if things remain stable, I advised Caryn that she could see me again on a prn basis. Again, I did advise her to certainly receive her periodic B12 shots in my office, or in your office if that is more convenient. Caryn was comfortable with this plan. Thank you again for allowing me to have participated in Caryn's care. I shall continue to keep you advised of her progress as needed. Please do not hesitate to contact me if I can be of any further assistance in the future. 10/03/2024 Diarrhea (ICD-10 - R19.7) Overall, Caryn appears to be doing well in general, as well as specifically from a GI standpoint. She is not having any particularly active or worrisome GI complaints at this time. Her previous GI symptoms of both reflux and intermittent diarrhea have seemingly resolved. The workup with last year's GI procedures was negative for any problems such as inflammatory bowel disease or celiac disease. I did not find any specific cause of her anemia with the endoscopies, although many times patients with a hiatal hernia and reflux may develop an iron deficiency anemia on that basis. She is presently asymptomatic in regard to the reflux and I advised her that if she is indeed off omeprazole that she could certainly remain off of it for the time being. Her previous anemia has improved on the supplemental iron and B12. She may very well have a component of pernicious anemia in regard to the low B12 and parietal cell antibodies, and I advised her to continue her supplemental B12 via the parenteral route for the time being. She did receive a B12 shot today and I advised her to have them every 2 to 3 months either with myself or through your office. I did advise her to continue the iron at least once a day as well. Given all of her recent laboratories I do not think any repeat laboratories are presently needed. Her history of fatty liver seems quite stable at this time given the ultrasound report from last year and the most recent liver profile that was completely normal. I do not think this needs any specific follow-up nor treatment on my part. Based on the otherwise negative colonoscopy I do not think she will need any further screening colonoscopies going forward. At this point, if things remain stable, I advised Caryn that she could see me again on a prn basis. Again, I did advise her to certainly receive her periodic B12 shots in my office, or in your office if that is more convenient. Caryn was comfortable with this plan. Thank you again for allowing me to have participated in Caryn's care. I shall continue to keep you advised of her progress as needed. Please do not hesitate to contact me if I can be of any further assistance in the future. 10/03/2024 Iron deficiency anemia (ICD-10 - D50.9) Overall, Caryn appears to be doing well in general, as well as specifically from a GI standpoint. She is not having any particularly active or worrisome GI complaints at this time. Her previous GI symptoms of both reflux and intermittent diarrhea have seemingly resolved. The workup with last year's GI procedures was negative for any problems such as inflammatory bowel disease or celiac disease. I did not find any specific cause of her anemia with the endoscopies, although many times patients with a hiatal hernia and reflux may develop an iron deficiency anemia on that basis. She is presently asymptomatic in regard to the reflux and I advised her that if she is indeed off omeprazole that she could certainly remain off of it for the time being. Her previous anemia has improved on the supplemental iron and B12. She may very well have a component of pernicious anemia in regard to the low B12 and parietal cell antibodies, and I advised her to continue her supplemental B12 via the parenteral route for the time being. She did receive a B12 shot today and I advised her to have them every 2 to 3 months either with myself or through your office. I did advise her to continue the iron at least once a day as well. Given all of her recent laboratories I do not think any repeat laboratories are presently needed. Her history of fatty liver seems quite stable at this time given the ultrasound report from last year and the most recent liver profile that was completely normal. I do not think this needs any specific follow-up nor treatment on my part. Based on the otherwise negative colonoscopy I do not think she will need any further screening colonoscopies going forward. At this point, if things remain stable, I advised Caryn that she could see me again on a prn basis. Again, I did advise her to certainly receive her periodic B12 shots in my office, or in your office if that is more convenient. Caryn was comfortable with this plan. Thank you again for allowing me to have participated in Caryn's care. I shall continue to keep you advised of her progress as needed. Please do not hesitate to contact me if I can be of any further assistance in the future. 10/03/2024 Diverticulosis of large intestine without perforation or abscess without bleeding (ICD-10 - K57.30) Overall, Caryn appears to be doing well in general, as well as specifically from a GI standpoint. She is not having any particularly active or worrisome GI complaints at this time. Her previous GI symptoms of both reflux and intermittent diarrhea have seemingly resolved. The workup with last year's GI procedures was negative for any problems such as inflammatory bowel disease or celiac disease. I did not find any specific cause of her anemia with the endoscopies, although many times patients with a hiatal hernia and reflux may develop an iron deficiency anemia on that basis. She is presently asymptomatic in regard to the reflux and I advised her that if she is indeed off omeprazole that she could certainly remain off of it for the time being. Her previous anemia has improved on the supplemental iron and B12. She may very well have a component of pernicious anemia in regard to the low B12 and parietal cell antibodies, and I advised her to continue her supplemental B12 via the parenteral route for the time being. She did receive a B12 shot today and I advised her to have them every 2 to 3 months either with myself or through your office. I did advise her to continue the iron at least once a day as well. Given all of her recent laboratories I do not think any repeat laboratories are presently needed. Her history of fatty liver seems quite stable at this time given the ultrasound report from last year and the most recent liver profile that was completely normal. I do not think this needs any specific follow-up nor treatment on my part. Based on the otherwise negative colonoscopy I do not think she will need any further screening colonoscopies going forward. At this point, if things remain stable, I advised Caryn that she could see me again on a prn basis. Again, I did advise her to certainly receive her periodic B12 shots in my office, or in your office if that is more convenient. Caryn was comfortable with this plan. Thank you again for allowing me to have participated in Caryn's care. I shall continue to keep you advised of her progress as needed. Please do not hesitate to contact me if I can be of any further assistance in the future. 10/03/2024 Other hemorrhoids (ICD-10 - K64.8) Overall, Caryn appears to be doing well in general, as well as specifically from a GI standpoint. She is not having any particularly active or worrisome GI complaints at this time. Her previous GI symptoms of both reflux and intermittent diarrhea have seemingly resolved. The workup with last year's GI procedures was negative for any problems such as inflammatory bowel disease or celiac disease. I did not find any specific cause of her anemia with the endoscopies, although many times patients with a hiatal hernia and reflux may develop an iron deficiency anemia on that basis. She is presently asymptomatic in regard to the reflux and I advised her that if she is indeed off omeprazole that she could certainly remain off of it for the time being. Her previous anemia has improved on the supplemental iron and B12. She may very well have a component of pernicious anemia in regard to the low B12 and parietal cell antibodies, and I advised her to continue her supplemental B12 via the parenteral route for the time being. She did receive a B12 shot today and I advised her to have them every 2 to 3 months either with myself or through your office. I did advise her to continue the iron at least once a day as well. Given all of her recent laboratories I do not think any repeat laboratories are presently needed. Her history of fatty liver seems quite stable at this time given the ultrasound report from last year and the most recent liver profile that was completely normal. I do not think this needs any specific follow-up nor treatment on my part. Based on the otherwise negative colonoscopy I do not think she will need any further screening colonoscopies going forward. At this point, if things remain stable, I advised Caryn that she could see me again on a prn basis. Again, I did advise her to certainly receive her periodic B12 shots in my office, or in your office if that is more convenient. Caryn was comfortable with this plan. Thank you again for allowing me to have participated in Caryn's care. I shall continue to keep you advised of her progress as needed. Please do not hesitate to contact me if I can be of any further assistance in the future. 10/03/2024 Gastro-esophageal reflux disease without esophagitis (ICD-10 - K21.9) Overall, Caryn appears to be doing well in general, as well as specifically from a GI standpoint. She is not having any particularly active or worrisome GI complaints at this time. Her previous GI symptoms of both reflux and intermittent diarrhea have seemingly resolved. The workup with last year's GI procedures was negative for any problems such as inflammatory bowel disease or celiac disease. I did not find any specific cause of her anemia with the endoscopies, although many times patients with a hiatal hernia and reflux may develop an iron deficiency anemia on that basis. She is presently asymptomatic in regard to the reflux and I advised her that if she is indeed off omeprazole that she could certainly remain off of it for the time being. Her previous anemia has improved on the supplemental iron and B12. She may very well have a component of pernicious anemia in regard to the low B12 and parietal cell antibodies, and I advised her to continue her supplemental B12 via the parenteral route for the time being. She did receive a B12 shot today and I advised her to have them every 2 to 3 months either with myself or through your office. I did advise her to continue the iron at least once a day as well. Given all of her recent laboratories I do not think any repeat laboratories are presently needed. Her history of fatty liver seems quite stable at this time given the ultrasound report from last year and the most recent liver profile that was completely normal. I do not think this needs any specific follow-up nor treatment on my part. Based on the otherwise negative colonoscopy I do not think she will need any further screening colonoscopies going forward. At this point, if things remain stable, I advised Caryn that she could see me again on a prn basis. Again, I did advise her to certainly receive her periodic B12 shots in my office, or in your office if that is more convenient. Caryn was comfortable with this plan. Thank you again for allowing me to have participated in Caryn's care. I shall continue to keep you advised of her progress as needed. Please do not hesitate to contact me if I can be of any further assistance in the future. 10/03/2024 Hiatal hernia (ICD-10 - K44.9) Overall, Caryn appears to be doing well in general, as well as specifically from a GI standpoint. She is not having any particularly active or worrisome GI complaints at this time. Her previous GI symptoms of both reflux and intermittent diarrhea have seemingly resolved. The workup with last year's GI procedures was negative for any problems such as inflammatory bowel disease or celiac disease. I did not find any specific cause of her anemia with the endoscopies, although many times patients with a hiatal hernia and reflux may develop an iron deficiency anemia on that basis. She is presently asymptomatic in regard to the reflux and I advised her that if she is indeed off omeprazole that she could certainly remain off of it for the time being. Her previous anemia has improved on the supplemental iron and B12. She may very well have a component of pernicious anemia in regard to the low B12 and parietal cell antibodies, and I advised her to continue her supplemental B12 via the parenteral route for the time being. She did receive a B12 shot today and I advised her to have them every 2 to 3 months either with myself or through your office. I did advise her to continue the iron at least once a day as well. Given all of her recent laboratories I do not think any repeat laboratories are presently needed. Her history of fatty liver seems quite stable at this time given the ultrasound report from last year and the most recent liver profile that was completely normal. I do not think this needs any specific follow-up nor treatment on my part. Based on the otherwise negative colonoscopy I do not think she will need any further screening colonoscopies going forward. At this point, if things remain stable, I advised Caryn that she could see me again on a prn basis. Again, I did advise her to certainly receive her periodic B12 shots in my office, or in your office if that is more convenient. Caryn was comfortable with this plan. Thank you again for allowing me to have participated in Caryn's care. I shall continue to keep you advised of her progress as needed. Please do not hesitate to contact me if I can be of any further assistance in the future. 10/03/2024 Fatty infiltration of liver (ICD-10 - K76.0) Overall, Caryn appears to be doing well in general, as well as specifically from a GI standpoint. She is not having any particularly active or worrisome GI complaints at this time. Her previous GI symptoms of both reflux and intermittent diarrhea have seemingly resolved. The workup with last year's GI procedures was negative for any problems such as inflammatory bowel disease or celiac disease. I did not find any specific cause of her anemia with the endoscopies, although many times patients with a hiatal hernia and reflux may develop an iron deficiency anemia on that basis. She is presently asymptomatic in regard to the reflux and I advised her that if she is indeed off omeprazole that she could certainly remain off of it for the time being. Her previous anemia has improved on the supplemental iron and B12. She may very well have a component of pernicious anemia in regard to the low B12 and parietal cell antibodies, and I advised her to continue her supplemental B12 via the parenteral route for the time being. She did receive a B12 shot today and I advised her to have them every 2 to 3 months either with myself or through your office. I did advise her to continue the iron at least once a day as well. Given all of her recent laboratories I do not think any repeat laboratories are presently needed. Her history of fatty liver seems quite stable at this time given the ultrasound report from last year and the most recent liver profile that was completely normal. I do not think this needs any specific follow-up nor treatment on my part. Based on the otherwise negative colonoscopy I do not think she will need any further screening colonoscopies going forward. At this point, if things remain stable, I advised Caryn that she could see me again on a prn basis. Again, I did advise her to certainly receive her periodic B12 shots in my office, or in your office if that is more convenient. Caryn was comfortable with this plan. Thank you again for allowing me to have participated in Caryn's care. I shall continue to keep you advised of her progress as needed. Please do not hesitate to contact me if I can be of any further assistance in the future. Plan Of Treatment Treatment Notes Assessment Notes Anemia Continue the Iron da narciso or twice a day and continue the B12 shots every 2 or 3 months Next Appt Details Follow Up: prn, Reason: Medications Administered Medication Instructions Date of Administration Dosage Notes B-12 10/03/2024 1000 mL Progress Notes * CARYN DURAND ADOB: [birth year] (73 yo F)Acc No.[id number]:10/03/2024 Progress Notes Patient:?CARYN DURAND Provider:?Reji Moya MD :[id number]???Age:73 Y???Sex:Female D ate:10/03/2024 Address:[address] [place] [address] Pcp:ADELINE RODGERS Subjective: * Chief Complaints: * ???Patient presents today fo r iron def anemia * HPI: ???incontinence:? I saw Caryn in follow-up today in regard to her previous anemia, gastroesophageal reflux, diarrhea, and fatty liver. I last saw Caryn in April 2024, at which time she underwent an upper endoscopy and colonoscopy. Her colonoscopy was normal and without any signs of polyps, inflammatory bowel disease, nor biopsy evidence of microscopic colitis. Her upper endoscopy revealed a moderate-sized hiatal hernia with some slight changes of reflux, but no evidence of any esophagitis nor Oseguera's esophagus. There was no evidence of any gastritis. ?Duodenal biopsies were negative for celiac disease, as were her celiac disease laboratories. Caryn reports that she presently feels well. She enjoys a good appetite and denies any significant heartburn or dysphagia. She presently does not think she is taking the omeprazole. She denies any abdominal pain, jaundice, nor unintentional weight loss. Her bowel movements have been fairly regular and without any signs of bleeding. She presently denies any significant diarrhea. Since I saw her last year she has been using iron supplements twice a day on a regular basis due to her previous iron deficiency anemia. She has also been receiving B12 shots approximately every other month or so due to a B12 deficiency noted in January 2024. She was found to have positive parietal cell antibodies but negative intrinsic factor antibodies.? Laboratories from earlier this year showed improvement. Her most recent hemoglobin had improved to 11.2 with normal MCV in late August. Her vitamin B12 level increased to 673 in early July. Her iron studies at that time also showed improvement with a ferritin of 79, iron of 63, and iron saturation. In?regard to her underlying history of fatty liver, her recent LFTs from just last month have also remained normal and her abdominal ultrasound from last year showed a normal- appearing liver other than the known fatty liver. There was no evidence of any significant liver disease nor any other worrisome changes such as ascites. * ROS:?General/Constitutional:?Change in appetite?denies.?Chills?denies.?Fatigue?denies.?Ophthalmologic:?Patient denies? Negative..?ENT:?Patient denies?Negative..?Respiratory:?Patient denies?No coughing/hemoptysis..?Cardiovascular:?Patient denies? No chest pain/orthopnea..?Gastrointestinal:?Comments?See HPI for details.?Genitourinary:?Patient denies? No dysuria/hematuria..?Musculoskeletal:?Patient denies? No specific arthralgias/myalgias..?Skin:?Patient denies?No rash/pruritus..?Neurologic:?Patient denies? No headaches/seizures..?Psychiatric:?Patient denies?Negative..? * Medical History:? * Surgical History:?Complete h ysterectomy Right hand surgery Cholecystectomy 04/2013Knee surgery right 2018Cataracts * Hospitalization/Major Diagno stic Procedure:?No Hospitalization History. * Family History:?Father: dece ased, cirrhosis, diagnosed with Heart disease.?Mother: alive 91 yrs.?Children: alive, gallstones.? There is no known family history of colorectal cancer or polyps. Dad had cirrhosis from EtOH. * Social History:?Tobacco Use:?Tobacco Use/Smoking?Are you a: current smoker , How often do you smoke cigarettes?: every day, How many cigarettes a day do you smoke?: 6-10, How soon after you wake up do you smoke your first cigarette?: 6-30 minutes, Are you interested in quitting?: Not ready to quit.?Drugs/Alcohol:?Alcohol Screen?Did you have a drink containing alcohol in the past year??No,?Points?0,?Interpretation?Negative.?Miscellaneous:?Caffeine: 3-4 cups per day. Marital status: . 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 ???Drug/Alcohol:?AUDIT-C (Standard)?Did you have a drink containing alcohol in the past year??Yes,?How often did you have a drink containing alcohol in the past year??Never (0 point),?How many drinks did you have on a typical day when you were drinking in the past year??1 or 2 drinks (0 point),?How often did you have six or more drinks on one occasion in the past year??Never (0 point),?Points?0,?Interpretation?Negative.?Smoker; no sig. alcohol. * Medications:?TakingIron (Kan sheryl Sulfate) 325 (65 Fe) MG Tablet 1 tablet Orally twce a day Losartan Potassium 100 MG Tablet 1 tablet Orally Once a day Fenofibrate 145 MG Tablet 1 tablet Orally Once a day Tylenol 325 MG Tablet 2 tablets Orally prn , Notes to Pharmacist: prnmetFORMIN HCl ER 500 MG Tablet Extended Release 24 Hour TAKE 2 TABLETS BY MOUTH TWICE DAILY WITH MEALS Oral Atorvastatin Calcium 80 MG Tablet TAKE 1 TABLET BY MOUTH DAILY Oral Metoprolol Succinate ER 100 MG Tablet Extended Release 24 Hour TAKE 1 TABLET BY MOUTH DAILY Oral Isosorbide Mononitrate ER 60 MG Tablet Extended Release 24 Hour TAKE 1 TABLET BY MOUTH DAILY Oral Medication List reviewed and reconciled with the patientTaking Iron (Ferrous Sulfate) 325 (65 Fe) MG Tablet 1 tablet Orally twce a day Taking Losartan Potassium 100 MG Tablet 1 tablet Orally Once a day Taking Fenofibrate 145 MG Tablet 1 tablet Orally Once a day Taking Tylenol 325 MG Tablet 2 tablets Orally prn , Notes to Pharmacist: prnTaking metFORMIN HCl ER 500 MG Tablet Extended Release 24 Hour TAKE 2 TABLETS BY MOUTH TWICE DAILY WITH MEALS Oral Taking Atorvastatin Calcium 80 MG Tablet TAKE 1 TABLET BY MOUTH DAILY Oral Taking Metoprolol Succinate ER 100 MG Tablet Extended Release 24 Hour TAKE 1 TABLET BY MOUTH DAILY Oral Taking Isosorbide Mononitrate ER 60 MG Tablet Extended Release 24 Hour TAKE 1 TABLET BY MOUTH DAILY Oral Medication List reviewed and reconciled with the patient * Allergies:?N.K.D.A.yes[Aller gies Verified] Objective: * Vitals:?Wt: 125.8 lbs, Ht: 6 3 in, BMI: 22.28 Index, BP: 111/11 mm Hg, Wt-k.06. * Examination: ???General Examination: ?GENERAL APPEARANCE:?pleasant, well nourished, well developed, in no acute distress.?EYES:?sclera non-icteric.?ORAL CAVITY:?mucosa moist.?NECK/THYROID:?no cervical lymphadenopathy, neck supple.?SKIN:?nonjaundiced, no spider angiomata..?HEART:?S1, S2 normal.?LUNGS:?clear to auscultation bilaterally.?ABDOMEN:?normal bowel sounds, no guarding or rigidity, no hepatosplenomegaly, no masses palpable, soft, nontender, nondistended..?EXTREMITIES:?no edema.?NEUROLOGIC:?alert and oriented.? Assessment: * Assessment: 1.?Anemia - D64.9 (Primary)? ??2.?B12 deficiency - E53.8???3.?Diarrhea - R19.7???4.?Iron deficiency anemia - D50.9???5.?Diverticulosis of large intestine without perforation or abscess without bleeding - K57.30???6.?Other hemorrhoids - K64.8???7.?Gastro-esophageal reflux disease without esophagitis - K21.9???8.?Hiatal hernia - K44.9???9.?Fatty infiltration of liver - K76.0??? Overall, Caryn appears to be doing well in general, as well as specifically from a GI standpoint. She is not having any particularly active or worrisome GI complaints at this time. Her previous GI symptoms of both reflux and intermittent diarrhea have seemingly resolved. The workup with last year's GI procedures was negative for any problems such as inflammatory bowel disease or celiac disease. I did not find any specific cause of her anemia with the endoscopies, although many times patients with a hiatal hernia and reflux may develop an iron deficiency anemia on that basis. She is presently asymptomatic in regard to the reflux and I advised her that if she is indeed off omeprazole that she could certainly remain off of it for the time being. Her previous anemia has improved on the supplemental iron and B12. She may very well have a component of pernicious anemia in regard to the low B12 and parietal cell antibodies, and I advised her to continue her supplemental B12 via the parenteral route for the time being. She did receive a B12 shot today and I advised her to have them every 2 to 3 months either with myself or through your office. I did advise her to continue the iron at least once a day as well. Given all of her recent laboratories I do not think any repeat laboratories are presently needed. Her history of fatty liver seems quite stable at this time given the ultrasound report from last year and the most recent liver profile that was completely normal. I do not think this needs any specific follow-up nor treatment on my part. Based on the otherwise negative colonoscopy I do not think she will need any further screening colonoscopies going forward. At this point, if things remain stable, I advised Caryn that she could see me again on a prn basis. Again, I did advise her to certainly receive her periodic B12 shots in my office, or in your office if that is more convenient. Caryn was comfortable with this plan. Thank you again for allowing me to have participated in Caryn's care. I shall continue to keep you advised of her progress as needed. Please do not hesitate to contact me if I can be of any further assistance in the future. Plan: * Treatment: * Therapeutic Injections:? B-12 : 1000 mL (Dose No:1) (Route: Intramuscular) given by Luh Paez on left arm intramuscular * Procedure Codes:?81751 THER/ PROPH/DIAG INJ, [id number] INJ VIT B-12 CYNOCOBLMN TO 1000 [id number] COLORECTAL CA SCREEN DOC [id number] TOBACCO [id number] BP SCR NOT PRFRM REC REASON NOS * Preventive Medicine:? ??Urinary Incontinence:?Urinary Incontinence?Assessment:?Absent,?Plan of care documented:?No, reason not specified.? ??Screenings:?Fall Risk Screening?Fall Risk Assessment:?No falls in the past year,?Screening:?No falls in the past year,?Assessment:?Not performed, no reason specified,?Plan of Care:?Not documented, no reason specified.? * Follow Up:?prn * * Sign off status: Completed true * Provider:?Reji Moya MD Date:? 025 Generated for Manoj galvan/Kimi/eTluthersmitting on:?10/22/2024 05:18 PM EDT History and Physical Notes * Examination Category Sub-Category Detail Notes Category Not es General Examination GENERAL APPEARANCE: pleasant , well nourished, well developed, in no acute distress EYES: sclera non-icteric NECK/THYROID: no cervical lymphade nopathy, neck supple HEART: S1, S2 normal LUNGS: clear to auscultatio n bilaterally ABDOMEN: normal bowel sounds, no guarding or rigidity, no hepatosplenomegaly, no masses palpable, soft, nontender, nondistended. NEUROLOGIC: alert and oriented SKIN: nonjaundiced, no spi yassine angiomata. EXTREMITIES: no edema ORAL CAVITY: mucosa moist
--- OUTSIDE RECORDS SUMMARY | 2024-10-22 17:19 | XMS_ITS | Clinical Summary ---
Author Organization [facility] Address [address] [place] [address] Phone Care Team Providers Care Floor Layer Helper Name Role Phone Juan Francisoc Stuart MD Primary Care Provider [phone] Allergies No known active allergies Medications fenofibrate (LOFIBRA) 160 mg tablet Take 1 tablet (160 mg total) by mouth 1 (one) time each day. 05/11/20 24 Active glucose blood test strip Check sugar 3 times daiy 02/07/20 24 Active icosapent ethyL (VASCEPA) 1 gram capsule Take 2 g by mouth 2 times daily. 05/20/20 22 Active alcohol swabs pads, medicated 11/22/19 19 Active blood-glucose meter kit 11/22/19 19 Active ONETOUCH DELICA LANCETS MISC 11/22/19 19 Active isosorbide mononitrate (IMDUR) 60 mg 24 hr tablet Take 60 mg by mouth daily. Active omega-3 acid ethyl esters (LOVAZA) 1 gram capsule Take 2 capsules (2 g total) by mouth 1 (one) time each day. 02/24/20 22 Active metoprolol succinate (TOPROL-XL) 100 mg 24 hr tablet Take 1 tablet (100 mg total) by mouth 1 (one) time each day. 90 tablet 2 06/20/20 24 Active OneTouch Ultra Test test strip CHECK BLOOD SUGAR THREE TIMES DAILY 300 strip 2 08/08/19 25 Active atorvastatin (LIPITOR) 80 mg tablet Take 1 tablet (80 mg total) by mouth 1 (one) time each day. 90 tablet 1 09/19/19 25 Active metFORMIN XR (GLUCOPHAGE-XR) 500 mg 24 hr tablet TAKE 2 TABLETS BY MOUTH TWICE DAILY WITH MEALS 360 tablet 1 09/27/19 25 Active mirtazapine (REMERON) 15 mg tablet TAKE 1 TABLET(15 MG) BY MOUTH AT BEDTIME 30 tablet 1 09/27/19 25 Active losartan (COZAAR) 100 mg tablet TAKE 1 TABLET BY MOUTH DAILY 90 tablet 1 10/14/19 25 Active losartan (COZAAR) 100 mg tablet Take 1 tablet (100 mg total) by mouth 1 (one) time each day. 04/19/20 24 025 Discontinued metFORMIN XR (GLUCOPHAGE-XR) 500 mg 24 hr tablet Take 2 tablets (1,000 mg total) by mouth 2 (two) times a day with meals. 03/30/20 24 025 Discontinued mirtazapine (REMERON) 15 mg tablet Take 1 tablet (15 mg total) by mouth at bedtime. 30 each 2 07/04/20 24 025 Discontinued Active Problems Problem Noted Date Diagnosed Date A-fib 02/18/2021 Pulmonary embolism 02/18/2021 Controlled type 2 diabetes m ellitus without complication, without long-term current use of insulin 08/07/2019 Renal agenesis 12/19/2018 Secondary hypertension 12/19/2018 Coronary artery disease invo lving [place] heart without angina pectoris 11/23/2018 Mixed hyperlipidemia 11/23/2018 Encounters Date Type Department Care Team Description 09/18/2024 Telephone Internal Medicine - [address] [place] [address] Juan Francisco Stuart MD Referral (Fax requesting an insurance referral - cardiology) from Last 3 Months Immunizations Name Administration Dates Next Due Influenza trivalent, 0.5mL (Fluad) 65yo and olde r 06/06/2019 Family History Medical History Relation Name Comments Diabetes Son Breast cancer Neg Hx Relation Name Status Comments Son Alive Social History Tobacco Use Types Packs/Day Years Used Date Smoking Tobacco: Some Days Smokeless Tobacco: Never Comments Unknown Sex and Gender Information Value Date Recorded Sex Assigned at Not on file Legal Sex Female 9:45 AM EST Gender Identity Not on file Sexual Orientation Not on file Obstetrics History Last Filed Vital Signs Vital Sign Reading Time Taken Comments Blood Pressure 118/58 07/04/2024 11:04 AM EST Pulse 72 07/04/2024 11:04 AM EST Temperature 36.2 ??C (97.1 ??F) 07/04/2024 11:[address] Respiratory Rate - - Oxygen Saturation 97% 07/04/2024 11:04 AM EST Inhaled Oxygen Concentration - - Weight 55.1 kg (121 lb 6.4 oz) 07/04/2024 11:04 AM EST Height 160 cm (5' 3 ) 01/03/2024 11:07 AM EDT Body Mass Index 21.51 01/03/2024 11:07 AM EDT Plan of Treatment Upcoming Encounters Date Type Department Care Team (Late st Contact Info) Description 01/04/2025 11:00 AM EDT Office Visit Internal Medicine - [place] [address] [facility] [address] [place] [address] Juan Francisco Stuart MD [address] [facility] [address] [place] [address] Health Maintenance Due Date Last Done Comments DTaP,Tdap,and Td Vaccines (1 - Tdap) 1969 Zoster Vaccines (2 of 3) 03/13/2014 01/16/2014 Pneumococcal Vaccine: 50+ Years (2 of 2 - PCV) 11/20/2019 11/19/2018, 08/22/2015 Diabetes: Annual Foot Exam 06/06/2020 06/06/2019 Breast Cancer Screening 08/31/2021 08/31/2019, 08/24 Social Influencers of Health Screening 06/27/2022 Diabetes: Annual Urine Albumin-Creatinine Ratio (uACR) 07/04/2022 06/06/2019 COVID-19 Vaccine ( season) 2024 08/08/2022, 04/14/2021, 09/09/2020, Additional history exists Influenza Vaccine (#1) 2024 05/16/2020, 2018 Diabetes: Annual Retina Eye Exam 06/17/2024 06/17/2023 Diabetes: Blood Sugar Control Test (HGBA1C) 01/01/2025 07/03/2024, 03/02/2022 Depression Screening 01/02/2025 01/03/2024 Falls Risk Assessment 01/02/2025 01/03/2024 Medicare Annual Wellness Visit 01/02/2025 01/03/2024 Diabetes: Annual GFR (Glomerular Filtration Rate) 07/03/2025 07/03/2024, 10/08/2021 Hypertension/CHF/CAD Annual BMP Blood Test 07/03/2025 07/03/2024, 10/08/2021 RSV Immunization Adult Patients (1 - 1-dose 75+ series) 2025 Cholesterol Screening (Lipid Panel) 07/03/2029 07/03/2024, 07/03/2024, 05/18/2022 Osteoporosis Screening (Bone Density Screening) 08/24/2029 08/24/2019 Colorectal Cancer Screening: Colonoscopy 09/20/2029 09/21/2019 Hepatitis C Screening Completed 06/06/2019 HIB Vaccines Aged Out No longer eligi ble based on patient's age to complete this topic HPV Vaccines Aged Out No longer eligi ble based on patient's age to complete this topic Hepatitis A Vaccines Aged Out No long er eligible based on patient's age to complete this topic Hepatitis B Vaccines Aged Out No long er eligible based on patient's age to complete this topic IPV Vaccines Aged Out No longer eligi ble based on patient's age to complete this topic MMR Vaccines Aged Out No longer eligi ble based on patient's age to complete this topic Meningococcal ACWY Vaccine Aged Out N o longer eligible based on patient's age to complete this topic Meningococcal B Vacine Aged Out No lo nger eligible based on patient's age to complete this topic RSV Immunization Patients Under 20 months Aged Out No longer eligible based on patient's age to complete this topic Varicella Vaccines Aged Out No longer eligible based on patient's age to complete this topic Procedures Procedure Name Priority Date/Time Associated Diagnosis Comments COMPREHENSIVE METABOLIC PANEL Routine 07/03/2024 10:12 AM EST DM type 2 (diabetes mellitus, type 2) (CMS/HCC) Secondary hypertension Hyperlipidemia Atrial fibrillation (CMS/HCC) HEMOGLOBIN A1C Routine 07/03/2024 10:12 AM EST DM type 2 (diabetes mellitus, type 2) (CMS/HCC) Secondary hypertension Hyperlipidemia Atrial fibrillation (CMS/HCC) LIPID PANEL WITH REFLEX TO DIRECT LDL Routine 07/03/2024 10:12 AM EST DM type 2 (diabetes mellitus, type 2) (CMS/HCC) Secondary hypertension Hyperlipidemia Atrial fibrillation (CMS/HCC) DEPRESSION SCREENING Routine 01/03/2024 FALLS RISK ASSESSMENT Routine 01/03/2024 DIABETES EYE EXAM Routine 06/17/2023 COLONOSCOPY Routine 09/21/2019 DX MAMMO INCL CAD UNI Routine 08/31/2019 3:52 PM EST Other abnormal and inconclusive findings on diagnostic imaging of breast DXA BONE DENSITY STUDY 1+ SITS AXIAL SKEL Routine 08/24/2019 2:04 PM EST Encounter for screening for osteoporosis HEPATITIS C SCREENING Routine 06/06/2019 URINE ALBUMIN CREATININE RATIO Routine 06/06/2019 DIABETES FOOT EXAM Routine 06/06/2019 from Last 3 Months or Most Recently Relevant to Health Maintenance Results * (ABNORMAL) Lipid panel with reflex to direct LDL (07/03/2024 10:12 AM EST) Cholesterol 165 0 - 200 mg/dL LAB CHEMISTRY METHOD 07/03/2024 7:36 PM EST [facility] Triglycerides 559(H) 0 - 150 mg/dL LAB CHEMISTRY METHOD 07/03/2024 7:36 PM EST [facility] HDL 35(L) >=40 mg/dL LAB CHEMISTRY METHOD 07/03/2024 7:36 PM EST [facility] LDL Calculated LAB CHEMISTRY METHOD 07/03/2024 7:36 PM EST [facility] Comment: Unable to calculate when triglycerides >400 mg/dL. Triglyceride value is >= 500. ??Calculated LDL is not meaningful. ??Direct LDL has been added. VLDL Cholesterol Joce LAB CHEMISTRY METHOD 07/03/2024 7:36 PM EST [facility] Comment:Unable to calculate when triglycerides >400 mg/dL. Non HDL Chol. (LDL+VLDL) LAB CHEMISTRY METHOD 07/03/2024 7:36 PM EST [facility] Comment:Unable to calculate when triglycerides >400 mg/dL. Chol/HDL Ratio 4.7(H) 0.0 - 4.4 LAB CHEMISTRY METHOD 07/03/2024 7:36 PM [facility] Blood Venous blood specimen / Unknown Venipuncture / Unknown 07/03/2024 10:12 AM EST 07/03/2024 10:12 AM EST us Juan Francisco Stuart MD LAB BLOOD ORDERABLES Final Resul t Performing Organization Address City/[facility]/ZIP Co de Phone Number [facility] [address] [place] [address], [place] [phone] * Hemoglobin A1c (07/03/2024 10:12 AM EST) Hemoglobin A1C 5.3 <6.5 % LAB CHEMISTRY METHOD 07/03/2024 10:20 PM EST [facility] Mean Bld Glu Estim. 105 mg/dL LAB CHEMISTRY METHOD 07/03/2024 10:20 PM [facility] Blood Venous blood specimen / Unknown Venipuncture / Unknown 07/03/2024 10:12 AM EST 07/03/2024 10:12 AM EST us Juan Francisco Stuart MD LAB BLOOD ORDERABLES Final Resul t [facility] [address] [place] [address], [place] [phone] * Comprehensive metabolic panel (07/03/2024 10:12 AM EST) Sodium 138 133 - 145 mmol/L LAB CHEMISTRY METHOD 07/03/2024 7:33 PM EST [facility] Potassium 4.3 3.5 - 5.5 mmol/L LAB CHEMISTRY METHOD 07/03/2024 7:33 PM [facility] Chloride 105 96 - 110 mmol/L LAB CHEMISTRY METHOD 07/03/2024 7:33 PM [facility] CO2 26 21 - 32 mmol/L LAB CHEMISTRY METHOD 07/03/2024 7:33 PM [facility] Anion Gap 7 3 - 11 LAB CHEMISTRY METHOD 07/03/2024 7:33 PM [facility] Glucose 96 70 - 100 mg/dL LAB CHEMISTRY METHOD 07/03/2024 7:33 PM [facility] BUN 18 5 - 25 mg/dL LAB CHEMISTRY METHOD 07/03/2024 7:33 PM [facility] Creatinine 0.85 0.50 - 1.10 mg/dL LAB CHEMISTRY METHOD 07/03/2024 7:33 PM [facility] eGFR 72 >=60 mL/min/1. 73m2 LAB CHEMISTRY METHOD 07/03/2024 7:33 PM [facility] Comment:Calculation based on the??Chronic Kidney Disease Epidemiology Collaboration (CKD-EPI) equation refit??without adjustment for race. BUN/Creatinine Ratio 21.2 LAB CHEMISTRY METHOD 07/03/2024 7:33 PM [facility] Calcium 9.2 8.5 - 10.5 mg/dL LAB CHEMISTRY METHOD 07/03/2024 7:33 PM [facility] AST (SGOT) 23 10 - 42 unit/L LAB CHEMISTRY METHOD 07/03/2024 7:33 PM [facility] ALT (SGPT) 17 10 - 60 unit/L LAB CHEMISTRY METHOD 07/03/2024 7:33 PM [facility] Alkaline Phosphatase 48 42 - 121 unit/L LAB CHEMISTRY METHOD 07/03/2024 7:33 PM [facility] Total Protein 7.4 6.0 - 8.0 g/dL LAB CHEMISTRY METHOD 07/03/2024 7:33 PM EST [facility] Albumin 4.0 3.2 - 5.0 g/dL LAB CHEMISTRY METHOD 07/03/2024 7:33 PM EST [facility] Total Bilirubin 0.6 0.0 - 1.4 mg/dL LAB CHEMISTRY METHOD 07/03/2024 7:33 PM EST [facility] Blood Venous blood specimen / Unknown Venipuncture / Unknown 07/03/2024 10:12 AM EST 07/03/2024 10:12 AM EST Juan Francisco Stuart MD LAB BLOOD ORDERABLES Final Resul t [facility] [address] [place] [address], * Falls Risk Assessment (01/03/2024) [facility] Falls Risk Assessment abstracted [facility] Provider HEALTH MAINTENANCE Final Result * Depression Screening (01/03/2024) [facility] Depression Screening abstracted [facility] Provider HEALTH MAINTENANCE Final Result * Diabetes Eye Exam (06/17/2023) [facility] Diabetes: Annual Retina Eye Exam abstracted [facility] Provider HEALTH MAINTENANCE Final Result * Colonoscopy (09/21/2019) [facility] Colonoscopy no interpretation , abstracted Anatomical Region Laterality Modality Other [facility] Provider HEALTH MAINTENANCE Final Result * DX MAMMO INCL CAD UNI (08/31/2019 3:52 PM EST) Anatomical Region Laterality Modality Mammography 08/28/2019 12:0 3 PM EST Narrative 08/31/2019 3:57 PM EST This is a summary report. The complete report is available in the patient's medical record. If you cannot access the medical record, please contact the sending organization for a detailed fax or copy. Unilateral right breast diagnostic digital mammogram History: Microcalcifications retroareolar right breast on screening mammogram of 08/24/2019. Technique: Magnification views of the right breast in the CC, MLO and mediolateral projections are obtained. Findings: Rounded and ovoid calcifications are in the skin on the mediolateral view, consistent with benign dermal calcifications. Impression: No mammographic evidence of malignancy. BI-RADS 1-negative 5 year breast cancer risk assessment N/A Lifetime breast cancer risk assessment N/A Breast cancer risk category Breast cancer risk not assessed Procedure Note Nidia Balderas - 07/07/2022 This is a summary report. The complete report is available in thepatient's medical record. If you cannot access the medical record, pleasecontact the sending organization for a detailed fax or copy. Unilateral right breast diagnostic digital mammogram History: Microcalcifications retroareolar right breast on screeningmammogram of 08/24/2019. Technique: Magnification views of the right breast in the CC, MLO andmediolateral projections are obtained. Findings: Rounded and ovoid calcifications are in the skin on themediolateral view, consistent with benign dermal calcifications. Impression: No mammographic evidence of malignancy. BI-RADS 1-negative 5 year breast cancer risk assessment N/A Lifetime breast cancer risk assessment N/A Breast cancer risk category Breast cancer risk not assessed us Brenda ROLDAN IMG BI PROCEDURES Final Res ult * DXA BONE DENSITY STUDY 1+ SITS AXIAL SKEL (08/24/2019 2:04 PM EST) Anatomical Region Laterality Modality Bone Densitometr y 06/06/2019 11:1 3 AM EST Narrative 08/24/2019 4:45 PM EST BONE DENSITY SCAN (DEXA): FINDINGS: Lumbar Spine T-score is -0.9. ?? (SD relative to 20-29 y/o adult) Z-score is 1.1. ??(SD relative to age matched peers) This is considered normal by WHO criteria. Left Hip T-score is -2.2 in the femoral neck. Z-score is -0.5 in the femoral neck. This is considered osteopenia by WHO criteria. Comparison exam(s): None. IMPRESSION: IMPRESSION: Osteopenia by WHO criteria. This patient has a 21% risk of major osteoporotic fracture and a 7.2% risk of hip fracture over the next 10 years. (World Health Organization Fracture Risk Assessment) [facility] Department of Internal Medicine recommends using National Osteoporosis Foundation (NOF) guidelines in treatment decisions related to osteoporosis. NOF guidelines suggest considering treatment for postmenopausal women and men aged 50 or older presenting with the following: History of hip or vertebral fracture. T-score = -2.5 (DXA) at the femoral neck, total hip, or spine, after appropriate evaluation to exclude secondary causes. Low bone mass (T-score between -1.0 and -2.5 at the femoral neck or spine) AND a 10-year probability of a hip fracture = 3% OR a 10-year probability of a major osteoporosis-related fracture = 20% based on the [place]-adapted WHO algorithm Please note that all treatment decisions require clinical judgment and consideration of individual patient factors, including patient preferences, co-morbidities, previous drug use, risk factors not captured in the FRAX model (e.g., frailty, falls, vitamin D deficiency, increased bone turnover, interval significant decline in bone density) and possible under- or over-estimation of fracture risk by FRAX. Optional alternative screening schedule based on ileana Gonzales., [facility] August 06, 2011 for patients with osteopenia (based on hip BMD T-score) is as follows: * ??advanced osteopenia (T scores -2.00 to -2.49), BMD testing every year * ??moderate osteopenia (T scores -1.50 to -1.99), BMD testing every 5 years mild osteopenia or normal BMD (T scores -1.50 and higher), BMD testing every 15 years Procedure Note Veda Brewer MD - 07/07/2022 BONE DENSITY SCAN (DEXA): FINDINGS: Lumbar Spine T-score is -0.9. (SD relative to 20-29 y/o adult) Z-score is 1.1. (SD relative to age matched peers) This is considered normal by WHO criteria. Left Hip T-score is -2.2 in the femoral neck. Z-score is -0.5 in the femoral neck. This is considered osteopenia by WHO criteria. Comparison exam(s): None. IMPRESSION: IMPRESSION: Osteopenia by WHO criteria. This patient has a 21% risk of majorosteoporotic fracture and a 7.2% risk of hip fracture over the next 10 years. (World HealthOrganization Fracture Risk Assessment) [facility] Department of Internal Medicine recommendsusing National Osteoporosis Foundation (NOF) guidelines in treatment decisions related toosteoporosis. NOF guidelines suggest considering treatment for postmenopausal women and menaged 50 or older presenting with the following: History of hip or vertebral fracture. T-score = -2.5 (DXA) at the femoral neck, total hip, or spine, afterappropriate evaluation to exclude secondary causes. Low bone mass (T-score between -1.0 and -2.5 at the femoral neck or spine)AND a 10-year probability of a hip fracture = 3% OR a 10-year probability of a majorosteoporosis-related fracture = 20% based on the [place]-adapted WHO algorithm Please note that all treatment decisions require clinical judgment andconsideration of individual patient factors, including patient preferences, co- morbidities,previous drug use, risk factors not captured in the FRAX model (e.g., frailty, falls, vitaminD deficiency, increased bone turnover, interval significant decline in bone density) andpossible under- or over-estimation of fracture risk by FRAX. Optional alternative screening schedule based on ileana Gonzales., NEJMJanuary 2011 for patients with osteopenia (based on hip BMD T-score) is as follows: * advanced osteopenia (T scores -2.00 to -2.49), BMD testing every year * moderate osteopenia (T scores -1.50 to -1.99), BMD testing every 5years mild osteopenia or normal BMD (T scores -1.50 and higher), BMD testingevery 15 years Brenda WALLER DXA PROCEDURES Final Re sult * Urine Albumin Creatinine Ratio (06/06/2019) Pathologist [facility] Urine Albumin Creatinine Ratio abstracted us Historical Provider HEALTH MAINTENANCE Final Result * Hepatitis C Screening (06/06/2019) [facility] Hepatitis C Screening abstracted Historical Provider HEALTH MAINTENANCE Final Result * Diabetes Foot Exam (06/06/2019) Diabetes: Annual Foot Exam abstracted Historical Provider HEALTH MAINTENANCE Final Result from Last 3 Months or Most Recently Relevant to Health Maintenance Insurance [employer] Care Teams Floor Layer Helper Relationship Specialty Start Date End Date Juan Francisco Stuart MD PCP - General Internal Medicine 11/17/18
--- OUTSIDE RECORDS SUMMARY | 2024-10-22 17:19 | XMS_ITS ---
Author Organization [facility] Address [address] [place] [address] Care Team Providers Care Gemologist Name Role Phone ADELINE RODGERS Primary Care Provider Reji Mcgrath [phone] Results Component Value Reference Range Notes Vitamin B12 (Not yet reviewe d by provider) Interpretation: Performing Lab:[facility], [address] [place] [id number] Notes/Report: Vitamin B12 673 200-900 pg/mL NORMAL 200-900 PG/ML INDETERMINATE 160-199 PG/ML DEFICIENT < 160 PG/ML Ferritin Reviewed date:07/23/2024 12:14:42 PM Interpretation: Performing Lab:[facility], [address] [place] [id number] Notes/Report: Ferritin 79 10-250 ng/mL REASON FOR VISIT B-12 shot Encounters Encounter Location Date Provider Diagnosis [facility] [address] [place] [phone] 07/17/2024 Reji Moya Anemia D64.9 and B12 deficiency E53.8 Assessments Encounter Date Diagnosis (ICD Code) Assessment Notes Treatment Notes Treatment Clinical Notes Section Notes 07/17/2024 Anemia (ICD-10 - D64.9) 07/17/2024 B12 deficiency (ICD-10 - E53.8) Plan Of Treatment Pending Test Test Name Order Date IRON + IBC (FE) 07/17/2024 CBC w DIFF 07/17/2024 Vitamin B12 07/17/2024 Progress Notes * MAN DURAND ADOB: [birth year] (73 yo F)Acc No.[id number]:07/17/2024 Patient:?MAN DURAND :1950???Age:73 Y???Sex:Female Address:[address] [place] [address] Subjective: * Chief Complaints: * ???B-12 shot * Medical History:? * Surgical History:? * Hospitalization/Major Diagno stic Procedure:? * Medications:? Objective: Assessment: * Assessment: 1.?Anemia - D64.9 (Primary)? 2.?B12 deficiency - E53.8? Plan: * Treatment: 2.?B12 deficiency?LAB: IRON + IBC (FE) ?LAB: CBC w DIFF ?LAB: Ferritin ?LAB: Vitamin B12 * Procedure Codes:? * true * Date:? Generated for Manoj galvan/Kimi/Williesmitting on:?10/22/2024 05:18 PM EDT
--- OUTSIDE RECORDS SUMMARY | 2024-10-22 17:19 | XMS_ITS | Encounter Summary ---
Author Organization [facility] Address [address] [place] [address] Care Team Providers Care Crating And Moving Estimator Name Role Phone Juan Francisco Stuart MD Primary Care Provider Reason for Visit * Reason Onset Date Comments Referral 09/18/2024 Fax requesting a n insurance referral - cardiology Encounter Details Date Type Department Care Team (Late st Contact Info) Description 09/18/2024 Telephone Internal Medicine - [place] [address] [place] [phone] Juan Francisco Stuart MD [address] [place] [address] Referral (Fax requesting an insurance referral - cardiology) Social History Tobacco Use Types Packs/Day Years Used Date Smoking Tobacco: Some Days Smokeless Tobacco: Never Comments Unknown Sex and Gender Information Value Date Recorded Sex Assigned at Not on file Legal Sex Female 9:45 AM EST Gender Identity Not on file Sexual Orientation Not on file documented as of this encounter Progress Notes * Natalia Petit - 09/25/2024 5:03 PM EDT Cardiology referral in place is for a different provider We need a new order placed for Dr. Clifton before we can process an insurance referral * Juan Francisco Stuart MD - 09/19/2024 4:22 PM EST referral department has to get a different cardiology referral is already in place * Violet Bautista [place] - 09/19/2024 2:33 PM EST Please advise * Natalia Petit - 09/18/2024 3:55 PM EST Fax rec'd requesting an ins referral (this is for a different cardiology office than the last referral) Caller: Fax Office: [facility] Specialty: cardiology Insurance: [facility] ID: [id number] Provider: Juan M Clifton DOS: 09/28/24 Visits: 6 Dx code: I65.23 Pls create an order with the above information so that I may process it through the pts insurance. Thank you IMPORTANT Pls copy and paste the above info into the order. Otherwise, it will not be processed as an ins referral documented in this encounter Plan of Treatment Upcoming Encounters Date Type Department Care Team (Late st Contact Info) Description 01/04/2025 11:00 AM EDT Office Visit Internal Medicine - [place] [address] [facility] [address] [place] [address] Juan Francisco Stuart MD [address] [facility] [address] [place] [address] documented as of this encounter Visit Diagnoses Not on filedocumented in this encounter Care Teams Crating And Moving Estimator Relationship Specialty Start Date End Date Juan Francisco Stuart MD PCP - General Internal Medicine 11/17/18 documented as of this encounter
[2024-10-22 17:43] LABS: MANUAL DIFF FLAG NO
[2024-10-22 17:48] LABS: Appearance Urine Clear; Basophils Percent Auto 0.8 % (0-2); Color Urine Dark Yellow; Eosinophils Percent Auto 0.4 % (0-4); Glucose Urine UA Negative (Negative); Hematocrit 38.6 % (37.0-47.0); Hemoglobin 12.6 g/dl (12.0-16.0); Imm Gran Abs Auto 0.02 X10*3/uL (0.00-0.03); Imm Gran Pct Auto 0.4 % (0.0-0.4); Leukocyte Esterase Urine Small (1+) (Negative); Lymphocytes Absolute Auto 1.3 X10*3/uL (1.2-4.9); Mean Corpuscular HGB Conc 32.6 g/dl (31.0-35.0); Mean Corpuscular Hemoglobin 27.3 pg (27.0-33.0); Mean Corpuscular Volume 83.7 fL (80.0-98.0); Mean Platelet Volume 9.6 fL (9.4-12.3); Monocytes Absolute Auto 0.6 X10*3/uL (0.1-1.2); Monocytes Percent Auto 10.7 % (2-11); Neutrophils Absolute Auto 3.2 x10*3/uL (2.0-8.3); Neutrophils Percent Auto 62.7 % (45-73); Nitrite Urine Negative (Negative); Platelet Count 254 X10*3/uL (160-400); Red Blood Count 4.61 X10*6/uL (4.20-5.50); Red Cell Distribution Width 13.8 % (11.0-16.0); Specific Gravity - Urine >= 1.030 (1.005-1.025); UMIC TRIGGER UA YES; Urine Blood Negative (Negative); Urine Ketones Trace mg/dL (Negative); Urine Protein Trace mg/dL (Neg-Trace); White Blood Count 5.2 X10*3/uL (4.8-10.8)
--- NOTE | 2024-10-22 17:55 | PC.NURSE ---
Away for imaging. Care ongoing by this RN & Tamika Massey LPN.
[2024-10-22 18:06] LABS: Alanine Aminotransferase 12 U/L (0-31); Albumin Level 4.3 g/dL (3.5-5.0); Alkaline Phosphatase 49 U/L (39-117); Anion Gap 13 (12-20); Aspartate Amino Transferase 29 U/L (5-31); Bilirubin Total 0.7 mg/dL (0.0-1.0); Blood Urea Nitrogen 26 mg/dL (9-16); Calcium 9.4 mg/dL (8.4-10.2); Carbon Dioxide 23 mmol/L (22-29); Chloride 104 mmol/L (96-108); Creatinine Clr Calc Pharmacy 47.6; Estimated Glomerular Filt Rate > 60; Glucose Random 98 mg/dL (60-115); Lipase 16 U/L (8-78); Potassium 4.2 mmol/L (3.3-5.1); Sodium 136 mmol/L (135-145); Total Protein 7.7 g/dL (6.5-8.0)
[2024-10-22 18:07] LABS: Bacteria Urine 1+ (None Seen); Hyaline Casts Urine 0-2 /LPF (0-2)
[2024-10-22 18:09] VITALS: BP 155/52; PULSE 76; RESP 16; TEMP 37; O2SAT 95
--- NOTE | 2024-10-22 18:23 | PC.NURSE ---
Patient requested PO fluids. Holding until imaging results are returned. Patient aware and agrees to plan of care. Care ongoing by this RN.
[2024-10-22 19:35] VITALS: BP 149/71; PULSE 84; RESP 16; TEMP 36.6; O2SAT 96
[2024-10-22 19:59] VITALS: BP 149/71; PULSE 84; RESP 16; TEMP 36.6; O2SAT 96
== END 2024-10-22 19:59 | disposition home or self-care (01) ==
PROVIDERS: Physician Assistant; Emergency Provider Internal Medicine; PCP Internal Medicine
DX: N39.0 Urinary tract infection, site not specified (principal); M54.50 Low back pain, unspecified; R10.84 Generalized abdominal pain; Z79.899 Other long term (current) drug therapy
CPT/HCPCS: 36415; 74176; 80053; 81001; 83690; 85025; 99283; 99284

== ENCOUNTER → 2024-10-22 17:27 | Outpatient (BNV) | payer MEDICARE, SELFPAY | PROVIDERS: Emergency Provider Internal Medicine; PCP Internal Medicine; Visit Provider Radiology Diagnostic Radiology | DX: K80.20 Calculus of gallbladder without cholecystitis without obstruction (principal); N20.0 Calculus of kidney | CPT/HCPCS: 74176 ==

== ENCOUNTER 2025-07-10 12:35 | Outpatient (REF) | payer MEDICARE, SELFPAY ==
--- OUTSIDE RECORDS SUMMARY | 2024-03-02 09:00 | XMS_ITS ---
Author Organization [facility] Address [address] [place] [phone] Care Team Providers Care Payroll Accounting Clerk Name Role Phone ADELINE RODGERS Primary Care Provider UnavailReji Briggs [phone] REASON FOR VISIT fe def anemia,chronic diarrhea,B12 def,abn wt loss Encounters Encounter Location Date Provider [place] [facility] [place] [address] [place] [phone] 03/02/2024 Reji Moya Plan Of Treatment No Information Progress Notes * MAN DURAND ADOB: [birth year] (74 yo F)Acc No.[id number]:03/02/2024 EGD and COL/MAC Patient: MAN GARIBAY Provider: Joe Moya MD :1950 A ge:73 Y S ex:Female Date:03/02/2024 Address:[address] [place], [place] [id number] Pcp:ADELINE RODGERS Subjective: * Chief Complaints: * f e def anemia,chronic diarrhea,B12 def,abn wt loss * The named appointment provid er may or may not be the originator of this progress note, and it is not deemed complete until electronically signed by the appointment provider. Sign off status: Pending * Provider: Joe Moya MD Date: 0 03/02/2024 Generated for Printi ng/Faxing/eTransmitting on: 1 09/10/2024 01:36 PM EST
--- OUTSIDE RECORDS SUMMARY | 2024-05-03 06:00 | XMS_ITS ---
Author Organization [facility] Address [address] [place] [address] Care Team Providers Care Heavy Duty Mechanic Name Role Phone ADELINE RODGERS Primary Care Provider Reji Mcgrath Unavailable [phone] REASON FOR VISIT marilee, chronic diarrhea Problems Problem Type SNOMED Code ICD Code Onset Dates Problem Status W/U Status Risk Notes Problem Diverticular disease of colon (916466321) Diverticulosis of large intestine without perforation or abscess without bleeding (K57.30) Active confirmed Problem Gastro-esophagea l reflux disease without esophagitis (178613958) Gastro-esophageal reflux disease without esophagitis (K21.9) Active confirmed Encounters Encounter Location Date Provider Diagnosis [facility] [place] [address] [place] [phone] 05/03/2024 Reji Moya Diarrhea R19.7 ; I [...] MAN DURAND ADOB: [birth year] (74 yo F)Acc No.[id number]:05/03/2024 EGD and COL/MAC Patient: MAN GARIBAY Provider: Joe Moya MD :1950 A ge:73 Y S ex:Female Date:05/03/2024 Address:[address] [place] [address] Pcp:ADELINE RODGERS Subjective: * Chief Complaints: * [...] * Procedure Codes: 4 5380 COLONOSCOPY AND [id number] INTRVL 3+YRS PTS CLNSCP [id number] RCMND FLW-UP 10 YRS DOCD, Modifiers: 1P 55962 UPPER GI ENDOSCOPY, BIOPSY Billing Information: * Procedure Codes: 72729 COLONOSCOPY AND BIOPSY. 0529F INTRVL 3+YRS PTS CLNSCP DOCD. 0528F RCMND FLW-UP 10 YRS DOCD. Modifiers: 1P 03138 UPPER GI ENDOSCOPY, BIOPSY. * The named appointment provid er may or may not be the originator of this progress note, and it is not deemed complete until electronically signed by the appointment provider. Sign off status: Pending * Provider: Joe Moya MD Date: Generated for Manoj galvan/Kimi/eTluthersmitting on: 09/10/2024 01:36 PM EST
[2025-07-10 13:02] LABS: MANUAL DIFF FLAG NO
--- OUTSIDE RECORDS SUMMARY | 2025-07-10 13:36 | XMS_ITS | Clinical Summary ---
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 Benign essential hypertension 04/02/2021 Small kidney 04/02/2021 Tobacco use disorder 04/02/2021 Hypertension 04/02/2021 Family History Medical History [...] Comments Breast Cancer Screening 1950 Pneumococcal Vaccine: 50+ Ye ars (1 of 2 - PCV) 1969 Colorectal Cancer Screening: Annual FOBT 11/03/1999 Colorectal Cancer Screening: Colonoscopy 11/03/1999 Colorectal Cancer Screening: Sigmoidoscopy 11/03/1999 Influenza Vaccine (#1) 2025 Hepatitis B Vaccine Aged Out No longe r eligible based on patient's age to complete this topic Insurance [employer] Member Subscriber Plan / Payer (Ef fective 2020-Present) Name:Caryn Cotton Relation to Subscriber:Self Name:Caryn Cotton Payer ID:[id number] (NAIC) Group ID:[id number] Type:Medicare Address: [place] [id number] [employer] Care Teams Senior Construction Manager Relationship Specialty Start Date End Date Juan Francisco Stuart MD [address] [place], [place] [id number] PCP - General 07/29/20
--- OUTSIDE RECORDS SUMMARY | 2025-07-10 13:36 | XMS_ITS | Clinical Summary ---
Author Organization 175 [facility] Address [address] [place] [address] Phone Care Team Providers Care [employer]ating [employer] Supervisor Name Role Phone Juan Francisco Stuart MD Primary Care Provider [phone] Allergies No known active allergies Medications alcohol swabs pads, medicated 9 Active isosorbide mononitrate (IMDUR) 60 mg 24 hr tablet Take 60 mg by mouth daily. Active blood-glucose meter (Accu-Chek Guide Glucose Meter) miscIndications: Controlled type 2 diabetes mellitus without complication, without long-term current use of insulin (CMS/HCC V24, CMS/HCC V28) USE DIRECTED TO TEST BLOOD SUGAR THREE (3) TIMES A DAY. E11.9 - REPLACES ONETOUCH 1 kit 5 Active blood sugar diagnostic (Accu-Chek Guide test strips) test stripIndications :Controlled type 2 diabetes mellitus without complication, without long-term current use of insulin (CMS/HCC V24, CMS/HCC V28) USE DIRECTED TO TEST BLOOD SUGAR THREE (3) TIMES A DAY. E11.9 - REPLACES ONETOUCH 100 each 12 5 Active Accu-Chek Softclix LancetsIndicatio ns:Controlled type 2 diabetes mellitus without complication, without long-term current use of insulin (CMS/HCC V24, CMS/HCC V28) USE DIRECTED TO TEST BLOOD SUGAR THREE (3) TIMES A DAY. E11.9 - REPLACES ONETOUCH 100 each 12 5 Active metoprolol succinate (TOPROL-XL) 100 mg 24 hr tablet Take 1 tablet (100 mg total) by mouth 1 (one) time each day. 90 tablet 2 5 Active atorvastatin (LIPITOR) 80 mg tablet Take 1 tablet (80 mg total) by mouth 1 (one) time each day. 90 tablet 1 5 Active atorvastatin (LIPITOR) 80 mg tablet Take 1 tablet (80 mg total) by mouth 1 (one) time each day. 90 each 1 5 10/01/19 26 Active fenofibrate (LOFIBRA) 160 mg tablet Take 1 tablet (160 mg total) by mouth 1 (one) time each day. 180 tablet 1 5 Active losartan (COZAAR) 100 mg tablet Take 1 tablet (100 mg total) by mouth 1 (one) time each day. 90 tablet 1 5 Active metFORMIN XR (GLUCOPHAGE-XR) 500 mg 24 hr tablet Take 2 tablets (1,000 mg total) by mouth 2 (two) times a day with meals. 360 tablet 1 5 Active gabapentin (NEURONTIN) 300 mg capsule Take 1 capsule (300 mg total) by mouth at bedtime. 30 capsule 2 5 Active losartan (COZAAR) 100 mg tablet TAKE 1 TABLET BY MOUTH DAILY 90 tablet 1 5 06/27/20 25 Discontinu ed(Reorder ) metFORMIN XR (GLUCOPHAGE-XR) 500 mg 24 hr tablet Take 2 tablets (1,000 mg total) by mouth 2 (two) times a day with meals. 360 tablet 1 5 07/02/20 25 Discontinu ed(Reorder ) gabapentin (NEURONTIN) 300 mg capsule Take 1 capsule (300 mg total) by mouth at bedtime. 30 capsule 2 5 07/04/20 25 Discontinu ed(Reorder ) Active Problems Problem Noted Date Diagnosed Date A-fib 02/18/2021 Pulmonary embolism 02/18/2021 Controlled type 2 diabetes m ellitus without complication, without long-term current use of insulin 08/07/2019 Renal agenesis 12/19/2018 Secondary hypertension 12/19/2018 Coronary artery disease invo lving [place] [facility] without angina pectoris 11/23/2018 Mixed hyperlipidemia 11/23/2018 Encounters Date Type Department Care Team Description 04/17/2025 Results Follow-Up Internal Medicine - [place] [address] [facility] [address] [place] [address] Juan Francisco Stuart MD 04/16/2025 10:26 AM EDT - 04/16/2025 11:59 PM EDT Hospital [facility] [address] [place] [address] Controlled type 2 diabetes mellitus without complication, without long-term current use of insulin ([facility] V24, [facility] V28); Primary hypertension; Mixed hyperlipidemia; Chronic atrial fibrillation ([facility] V24, [facility] V28); Preventative health care; Encounter for screening mammogram for malignant neoplasm of breast Discharge Disposition: Home or Self Care from Last 3 Months Immunizations Immunization Administration Dates Next Due Influenza trivalent, 0.5mL (Fluad) 65yo and olde r 06/06/2019 Surgical History Surgery Date Site/Laterality Comments HYSTERECTOMY 07/19/1995 - 07/18/1996 Family History Medical History Relation Name Comments Diabetes Son Breast cancer Neg Hx Relation Name Status Comments Son Alive Social History Tobacco Use Types Packs/Day Years Used Date Smoking Tobacco: Some Days Smokeless Tobacco: Never Comments No Sex and Gender Information Value Date Recorded Sex Assigned at Female 01/18/2025 1:14 PM EDT Legal Sex Female 9:45 AM EST Gender Identity Female 01/18/2025 1:14 PM EDT Sexual Orientation Straight 01/18/2025 1: 14 PM EDT Obstetrics History Para Term AB IAB SAB Ectopic Multiple Livin g Live Births 3 Last Filed Vital Signs Vital Sign Reading Time Taken Comments Blood Pressure 138/70 04/03/2025 11:07 AM EDT Pulse 72 04/03/2025 11:07 AM EDT Temperature 36.2 C (97.1 F) 04/03/2025 11:07 AM EDT Respiratory Rate - - Oxygen Saturation 97% 04/03/2025 11:07 AM EDT Inhaled Oxygen Concentration - - Weight 54.4 kg (120 lb) 04/16/2025 11:10 AM EDT Height 160 cm (5' 3 ) 04/16/2025 11:10 AM EDT Body Mass Index 21.26 04/16/2025 11:10 AM EDT Plan of Treatment Upcoming Encounters Date Type Department Care Team (Late st Contact Info) Description 10/04/2025 11:00 AM EDT Office Visit Internal Medicine - [place] [address] [facility] [address] [place] [id number] Juan Francisco Stuart MD [address] [facility] [address] [place] [address] Health Maintenance Due Date Last Done Comments DTaP,Tdap,and Td Vaccines (1 - Tdap) 1969 Hepatitis A Vaccines (1 of 2 - Risk 2-dose series) 1969 RSV Immunization Adult Patients (1 - Risk 50-74 years 1-dose series) 2000 Hepatitis B Vaccines (1 of 3 - Risk 3-dose series) 2010 Zoster Vaccines (2 of 3) 03/13/2014 01/16/2014 Pneumococcal Vaccine: 50+ Years (2 of 2 - PCV) 11/20/2019 11/19/2018, 08/22/2015 Diabetes: Annual Foot Exam 06/06/2020 06/06/2019 Social Influencers of Health Screening 06/27/2022 Diabetes: Annual Urine Albumin-Creatinine Ratio (uACR) 07/04/2022 06/06/2019 Diabetes: Annual Retina Eye Exam 06/17/2024 06/17/2023 Depression Screening 07/19/2024 01/03/2024 Falls Risk Assessment 01/02/2025 01/03/2024 Medicare Annual Wellness Visit 01/02/2025 01/03/2024 COVID-19 Vaccine ( season) 2025 08/08/2022, 04/14/2021, 09/09/2020, Additional history exists Influenza Vaccine (#1) 2025 05/16/2020, 2018 Diabetes: Blood Sugar Control Test (HGBA1C) 10/14/2025 04/16/2025, 07/03/2024, 03/02/2022 Diabetes: Annual GFR (Glomerular Filtration Rate) 04/16/2026 04/16/2025, 07/03/2024, 10/08/2021 Hypertension/CHF/CAD Annual BMP Blood Test 04/16/2026 04/16/2025, 07/03/2024, 10/08/2021 Breast Cancer Screening 04/16/2027 04/16/20 25, 08/31/2019, 08/24/2019 Colorectal Cancer Screening: Colonoscopy 09/20/2029 09/21/2019 Cholesterol Screening (Lipid Panel) 04/16/2030 04/16/2025, 04/16/2025, 07/03/2024, Additional history exists Osteoporosis Screening (Bone Density Screening) 03/21/2035 03/21/2025, 08/24/2019 Hepatitis C Screening Completed 06/06/2019 HIB Vaccines [...] age to complete this topic Meningococcal B Vaccine Aged Out No l onger eligible based on patient's age to complete this topic RSV Immunization Patients Under 20 months Aged Out No longer eligible based on patient's age to complete this topic Varicella Vaccines Aged Out No longer eligible based on patient's age to complete this topic Procedures Procedure Name Priority Date/Time Associated Diagnosis Comments MG MAMMO DIGITAL SCREENING W FEDERICO BILAT Routine 04/16/2025 12:56 PM EDT Controlled type 2 diabetes mellitus without complication, without long-term current use of insulin ([facility] V24, [facility] V28) Primary hypertension Mixed hyperlipidemia Chronic atrial fibrillation ([facility] V24, [facility] V28) Preventative health care Encounter for screening mammogram for malignant neoplasm of breast LDL CHOLESTEROL, DIRECT Routine 04/16/2025 9:58 AM EDT Controlled type 2 diabetes mellitus without complication, without long-term current use of insulin ([facility] V24, [facility] V28) Primary hypertension Mixed hyperlipidemia Chronic atrial fibrillation ([facility] V24, [facility] V28) CBC WITH AUTO DIFFERENTIAL Routine 04/16/2025 9:58 AM EDT Controlled type 2 diabetes mellitus without complication, without long-term current use of insulin (CMS/HCC V24, CMS/HCC V28) Primary hypertension Mixed hyperlipidemia Chronic atrial fibrillation (CMS/HCC V24, CMS/HCC V28) HEMOGLOBIN A1C Routine 04/16/2025 9:58 AM EDT Controlled type 2 diabetes mellitus without complication, without long-term current use of insulin (CMS/HCC V24, CMS/HCC V28) Primary hypertension Mixed hyperlipidemia Chronic atrial fibrillation (CMS/HCC V24, CMS/HCC V28) CBC AND DIFFERENTIAL Routine 04/16/2025 9:58 AM EDT Controlled type 2 diabetes mellitus without complication, without long-term current use of insulin (CMS/HCC V24, CMS/HCC V28) Primary hypertension Mixed hyperlipidemia Chronic atrial fibrillation (CMS/HCC V24, CMS/HCC V28) COMPREHENSIVE METABOLIC PANEL Routine 04/16/2025 9:58 AM EDT Controlled type 2 diabetes mellitus without complication, without long-term current use of insulin (CMS/HCC V24, CMS/HCC V28) Primary hypertension Mixed hyperlipidemia Chronic atrial fibrillation (CMS/HCC V24, CMS/HCC V28) LIPID PANEL WITH REFLEX TO DIRECT LDL Routine 04/16/2025 9:58 AM EDT Controlled type 2 diabetes mellitus without complication, without long-term current use of insulin (CMS/HCC V24, CMS/HCC V28) Primary hypertension Mixed hyperlipidemia Chronic atrial fibrillation (CMS/HCC V24, CMS/HCC V28) THYROID STIMULATING HORMONE Routine 04/16/2025 9:58 AM EDT Controlled type 2 diabetes mellitus without complication, without long-term current use of insulin (CMS/HCC V24, CMS/HCC V28) Primary hypertension Mixed hyperlipidemia Chronic atrial fibrillation (CMS/HCC V24, CMS/HCC V28) BD BONE DENSITY DXA AXIAL SKELETON Routine 03/21/2025 10:08 AM EDT Post-menopausal HM DEPRESSION SCREENING Routine 01/03/2024 HM FALLS RISK ASSESSMENT Routine 01/03/2024 DIABETES EYE EXAM Routine 06/17/2023 COLONOSCOPY Routine 09/21/2019 HEPATITIS C SCREENING Routine 06/06/2019 URINE ALBUMIN CREATININE RATIO Routine 06/06/2019 DIABETES FOOT EXAM Routine 06/06/2019 from Last 3 Months or Most Recently Relevant to Health Maintenance Results * MG Mammo Digital Screening w Federico bilat (04/16/2025 12:56 PM EDT) Anatomical Region Laterality Modality Breast Bilateral Mammography 04/16/2025 4:52 PM EDT Impressions 04/16/2025 4:57 PM EDT No mammographic evidence of malignancy. No suspicious interval change. A negative mammogram in the presence of a clinically suspicious palpable abnormality does not preclude the possibility of malignancy or alter the indications for biopsy. ASSESSMENT: BI-RADS 2: BENIGN RECOMMENDATION(S): 1: Routine screening mammogram BILATERAL in 1 year. [facility] [address], [address] -------- FINAL REPORT -------- Dictated By: Sylvester Shahid Dictated Date: 04/16/2025 16:52 ET Assigned Physician: Sylvester Shahid Reviewed and Electronically Signed By: Sylvester Shahid Signed Date: 04/16/2025 16:57 ET Workstation ID: [id number] Transcribed By: Self Edit Transcribed Date: 04/16/2025 16:52 ET Narrative 04/16/2025 4:57 PM EDT EXAM: SCREENING MAMMOGRAPHY, BILATERAL HISTORY: SCREENING. No additional history. COMPARISON: 08/24/19, 06/03/15 TECHNIQUE: Synthesized CC and MLO projections of each breast. Tomosynthesis of each breast in the CC and MLO projections. ADDITIONAL IMAGING: None Computer-aided detection was employed with the iCAD ProFound AI 3-D. TISSUE DENSITY: There are scattered areas of fibroglandular density. (BI-RADS category B) FINDINGS: RIGHT BREAST: No suspicious mass. No new suspicious calcification. No distortion. No suspicious change in some calcifications around the right nipple. No additional suspicious right breast findings LEFT BREAST: No suspicious mass. No suspicious calcification. No distortion. No additional suspicious left breast findings Procedure Note Sylvester Shahid MD - 04/16/2025 EXAM: SCREENING MAMMOGRAPHY, BILATERAL HISTORY: SCREENING. No additional history. COMPARISON: 08/24/19, 06/03/15 TECHNIQUE: Synthesized CC and MLO projections of each breast.Tomosynthesis of each breast in the CC and MLO projections. ADDITIONAL IMAGING: None Computer-aided detection was employed with the Jogg AI 3-D. TISSUE DENSITY: There are scattered areas of fibroglandular density.(BI-RADS category B) FINDINGS: RIGHT BREAST: No suspicious mass. No new suspicious calcification. No distortion. Nosuspicious change in some calcifications around the right nipple. Noadditional suspicious right breast findings LEFT BREAST: No suspicious mass. No suspicious calcification. No distortion. Noadditional suspicious left breast findings IMPRESSION: No mammographic evidence of malignancy. No suspicious interval change. A negative mammogram in the presence of a clinically suspicious palpableabnormality does not preclude the possibility of malignancy or alter theindications for biopsy. ASSESSMENT: BI-RADS 2: BENIGN RECOMMENDATION(S): 1: Routine screening mammogram BILATERAL in 1 year. [facility] location[facility] [address], [address] -------- FINAL REPORT -------- Dictated By: Sylvester Shahid Dictated Date: 04/16/2025 16:52 ET Assigned Physician: Sylvester Shahid Reviewed and Electronically Signed By: Sylvester Shahid Signed Date: 04/16/2025 16:57 ET Workstation ID: [id number] Transcribed By: Self Edit Transcribed Date: 04/16/2025 16:52 ET Juan Francisco Stuart MD IMG BI PROCEDURES Final Result * (ABNORMAL) Lipid panel with reflex to direct LDL (04/16/2025 9:58 AM EDT) Cholesterol 149 0 - 200 mg/dL LAB CHEMISTRY METHOD 04/16/2025 3:[address] [facility] Triglycerides 527(H) 0 - 150 mg/dL LAB CHEMISTRY METHOD 04/16/2025 3:[address] [facility] HDL 26(L) >=40 mg/dL LAB CHEMISTRY METHOD 04/16/2025 3:[address] [facility] LDL Calculated LAB CHEMISTRY METHOD 04/16/2025 3:[address] [facility] Comment: Unable to calculate when triglycerides >400 mg/dL. Triglyceride value is >= 500. Calculated LDL is not meaningful. Direct LDL has been added. VLDL Cholesterol Joce LAB CHEMISTRY METHOD 04/16/2025 3:[address] [facility] Comment:Unable to calculate when triglycerides >400 mg/dL. Non HDL Chol. (LDL+VLDL) LAB CHEMISTRY METHOD 04/16/2025 3:[address] [facility] Comment:Unable to calculate when triglycerides >400 mg/dL. Chol/HDL Ratio 5.7(H) 0.0 - 4.4 LAB CHEMISTRY METHOD 04/16/2025 3:[address] [facility] Blood Venous blood specimen / Unknown Venipuncture / Unknown 04/16/2025 9:58 AM EDT 04/16/2025 9:58 AM EDT us Juan Francisco Stuart MD LAB BLOOD ORDERABLES Final Resul t [facility] [address] [place] [address], [place] [phone] * (ABNORMAL) CBC auto differential (04/16/2025 9:58 AM EDT) WBC 6.5 4.8 - 10.8 K/mcL LAB HEMETOLOGY METHOD 04/16/2025 2:[address] [facility] RBC 4.30 3.80 - 4.80 M/mcL LAB HEMETOLOGY METHOD 04/16/2025 2:[address] [facility] Hemoglobin 12.1 11.5 - 16.0 g/dL LAB HEMETOLOGY METHOD 04/16/2025 2:[address] [facility] Hematocrit 37.2 35.0 - 47.0 % LAB HEMETOLOGY METHOD 04/16/2025 2:[address] [facility] MCV 86.1 79.0 - 98.0 FL LAB HEMETOLOGY METHOD 04/16/2025 2:[address] [facility] MCH 28.0 27.0 - 32.0 pcg LAB HEMETOLOGY METHOD 04/16/2025 2:[address] [facility] MCHC 32.5 32.0 - 37.0 g/dL LAB HEMETOLOGY METHOD 04/16/2025 2:[address] [facility] RDW 14.7 11.0 - 15.0 % LAB HEMETOLOGY METHOD 04/16/2025 2:[address] [facility] Platelets 258 130 - 400 K/mcL LAB HEMETOLOGY METHOD 04/16/2025 2:[address] [facility] MPV 9.9 7.0 - 11.0 FL LAB HEMETOLOGY METHOD 04/16/2025 2:[address] [facility] NRBC 0.0 <1.0 % LAB HEMETOLOGY METHOD 04/16/2025 2:[address] [facility] NRBC Absolute 0.00 <0.10 K/mcL LAB HEMETOLOGY METHOD 04/16/2025 2:[address] [facility] Neutrophils Relative 68.3 % LAB [facility]EM[facility]OLOGY [facility] Lymphocytes Relative 24.4 % [facility]EM[facility]OLOGY [facility] Monocytes Relative 5.6 % LAB HEMETOLOGY METHOD 04/16/2025 2:20 PM [facility] Eosinophils Relative 0.5 % LAB HEMETOLOGY METHOD 04/16/2025 2:[address] [facility] Basophils Relative 0.3 % LAB HEMETOLOGY METHOD 04/16/2025 2:20 PM [facility] Immature Granulocytes Relative 0.9 % LAB HEMETOLOGY METHOD 04/16/2025 2:20 PM [facility] Neutrophils Absolute 4.43 1.50 - 7.00 K/mcL LAB HEMETOLOGY METHOD 04/16/2025 2:20 PM [facility] Lymphocytes Absolute 1.58 1.00 - 5.00 K/mcL LAB HEMETOLOGY METHOD 04/16/2025 2:[address] [facility] Monocytes Absolute 0.36 0.20 - 1.00 K/mcL LAB HEMETOLOGY METHOD 04/16/2025 2:20 PM [facility] Eosinophils Absolute 0.03 0.00 - 0.50 K/mcL LAB HEMETOLOGY METHOD 04/16/2025 2:[address] [facility] Basophils Absolute 0.02 0.00 - 0.20 K/mcL LAB HEMETOLOGY METHOD 04/16/2025 2:20 PM [facility] Immature Granulocytes Absolute 0.06(H) 0.00 - 0.03 K/mcL LAB HEMETOLOGY METHOD 04/16/2025 2:20 PM [facility] Blood Venous blood specimen / Unknown Venipuncture / Unknown 04/16/2025 9:58 AM EDT 04/16/2025 9:58 AM EDT us Juan Francisco Stuart MD LAB BLOOD ORDERABLES Final Resul t Performing Organization Address City/[facility]/ZIP Co de Phone Number [facility] [address] [place] [address], [place] [phone] * Thyroid stimulating hormone (04/16/2025 9:58 AM EDT) Pathologist [facility] TSH 1.53 0.40 - 4.00 mcIU/mL LAB CHEMISTRY METHOD 04/16/2025 4:[address] [facility] Blood Venous blood specimen / Unknown Venipuncture / Unknown 04/16/2025 9:58 AM EDT 04/16/2025 9:58 AM EDT us Juan Francisco Stuart MD LAB BLOOD ORDERABLES Final Resul t Performing Organization Address City/[facility]/ZIP Co de Phone Number [facility] [address] [place] [address], [place] [phone] * LDL cholesterol, direct (04/16/2025 9:58 AM EDT) [facility] LDL Direct 69 <=100 mg/dL LAB CHEMISTRY METHOD 04/16/2025 9:[address] [facility] Blood Venous blood specimen / Unknown Venipuncture / Unknown 04/16/2025 9:58 AM EDT 04/16/2025 9:58 AM EDT us Juan Francisco Stuart MD LAB BLOOD ORDERABLES Final Resul t Performing Organization Address City/[facility]/ZIP Co de Phone Number [facility] [address] [place] [address], [place] [phone] * Hemoglobin A1c (04/16/2025 9:58 AM EDT) Pathologist [facility] Hemoglobin A1C 5.3 <6.5 % LAB CHEMISTRY METHOD 04/17/2025 10:[address] [facility] Mean Bld Glu Estim. 105 mg/dL LAB CHEMISTRY METHOD 04/17/2025 10:44 AM [facility] Blood Venous blood specimen / Unknown Venipuncture / Unknown 04/16/2025 9:58 AM EDT 04/16/2025 9:58 AM EDT us Juan Francisco Stuart MD LAB BLOOD ORDERABLES Final Resul t [facility] [address] [place] [address], [place] [phone] * Comprehensive metabolic panel (04/16/2025 9:58 AM EDT) Sodium 133 133 - 145 mmol/L LAB CHEMISTRY METHOD 04/16/2025 3:39 PM [facility] Potassium 5.0 3.5 - 5.5 mmol/L LAB CHEMISTRY METHOD 04/16/2025 3:39 PM [facility] Chloride 101 96 - 110 mmol/L LAB CHEMISTRY METHOD 04/16/2025 3:39 PM [facility] CO2 25 21 - 32 mmol/L LAB CHEMISTRY METHOD 04/16/2025 3:39 PM [facility] Anion Gap 7 3 - 11 LAB CHEMISTRY METHOD 04/16/2025 3:39 PM [facility] Glucose 95 70 - 100 mg/dL LAB CHEMISTRY METHOD 04/16/2025 3:39 PM [facility] BUN 19 5 - 25 mg/dL LAB CHEMISTRY METHOD 04/16/2025 3:39 PM [facility] Creatinine 0.96 0.50 - 1.10 mg/dL LAB CHEMISTRY METHOD 04/16/2025 3:39 PM [facility] eGFR 62 >=60 mL/min/1. 73m2 LAB CHEMISTRY METHOD 04/16/2025 3:39 PM [facility] Comment:Calculation based on the Chronic Kidney Disease Epidemiology Collaboration (CKD-EPI) equation refit without adjustment for race. BUN/Creatinine Ratio 19.8 LAB CHEMISTRY METHOD 04/16/2025 3:[address] [facility] Calcium 9.3 8.5 - 10.5 mg/dL LAB CHEMISTRY METHOD 04/16/2025 3:39 PM [facility] AST (SGOT) 32 10 - 42 unit/L LAB CHEMISTRY METHOD 04/16/2025 3:[address] [facility] ALT (SGPT) 22 10 - 60 unit/L LAB CHEMISTRY METHOD 04/16/2025 3:[address] [facility] Alkaline Phosphatase 58 42 - 121 unit/L LAB CHEMISTRY METHOD 04/16/2025 3:39 PM [facility] Total Protein 7.6 6.0 - 8.0 g/dL LAB CHEMISTRY METHOD 04/16/2025 3:[address] [facility] Albumin 4.1 3.2 - 5.0 g/dL LAB CHEMISTRY METHOD 04/16/2025 3:39 PM [facility] Total Bilirubin 0.5 0.0 - 1.4 mg/dL LAB CHEMISTRY METHOD 04/16/2025 3:[address] [facility] Blood Venous blood specimen / Unknown Venipuncture / Unknown 04/16/2025 9:58 AM EDT 04/16/2025 9:58 AM EDT us Juan Francisco Stuart MD LAB BLOOD ORDERABLES Final Resul t [facility] [address] [place] [address], [place] [phone] * BD Bone Density DXA Axial Skeleton (03/21/2025 10:08 AM EDT) Anatomical Region Laterality Modality Wrist, Hip, L-spine Bone Densito metry 03/21/2025 10:2 5 AM EDT Impressions 03/21/2025 10:26 AM EDT 1. Osteopenia. 2. FRAX analysis yields a 10-year probability of major osteoporotic fracture of 16.4% and a 10-year probability of hip fracture of 3.3%. Code 75305 -------- FINAL REPORT -------- Dictated By: Filiberto Patterson Dictated Date: 03/21/2025 10:25 ET Assigned Physician: Filiberto Patterson Reviewed and Electronically Signed By: Filiberto Patterson Signed Date: 03/21/2025 10:26 ET Workstation ID: [id number] Transcribed By: Self Edit Transcribed Date: 03/21/2025 10:25 ET Narrative 03/21/2025 10:26 AM EDT HISTORY: The patient is a 74-year-old postmenopausal female with clinical concern for metabolic bone disease. FINDINGS: Dual energy x-ray absorptiometry of the lumbar spine and femurs is performed. The mean bone mineral density at L1-L4 (with the exclusion of L2 and L3) is 1.186 gm/cm2 which is 102% of that of young normals and 129% of that of age matched controls. This yields a T-score of 0.2 and a Z-score of 2.2 and there is therefore no evidence of osteoporosis or osteopenia here. The mean bone mineral density of the femurs bilaterally is 0.813 gm/cm2 which is 81% of that of young normals and 106% of that of age matched controls. This yields a T-score of -1.5 and a Z-score of 0.4 which is diagnostic of osteopenia. The T-score of the right femoral neck is -1.6 and that of the left femoral neck is -2.4 which is diagnostic of osteopenia. Procedure Note Filiberto Patterson MD - 03/21/2025 HISTORY: The patient is a 74-year-old postmenopausal female with clinicalconcern for metabolic bone disease. FINDINGS: Dual energy x-ray absorptiometry of the lumbar spine and femursis performed. The mean bone mineral density at L1-L4 (with the exclusionof L2 and L3) is 1.186 gm/cm2 which is 102% of that of young normals [id number]% of that of age matched controls. This yields a T-score of 0.2 and aZ-score of 2.2 and there is therefore no evidence of osteoporosis orosteopenia here. The mean bone mineral density of the femurs bilaterally is 0.813 gm/tb9oezyw is 81% of that of young normals and 106% of that of age matchedcontrols. This yields a T-score of -1.5 and a Z-score of 0.4 which isdiagnostic of osteopenia. The T- score of the right femoral neck is -1.6and that of the left femoral neck is -2.4 which is diagnostic ofosteopenia. IMPRESSION: 1. Osteopenia. 2. FRAX analysis yields a 10-year probability of major osteoporoticfracture of 16.4% and a 10-year probability of hip fracture of 3.3%. Code 94160 -------- FINAL REPORT -------- Dictated By: Filiberto Patterson Dictated Date: 03/21/2025 10:25 ET Assigned Physician: Filiberto Patterson Reviewed and Electronically Signed By: Filiberto Patterson Signed Date: 03/21/2025 10:26 ET Workstation ID: [id number] Transcribed By: Self Edit Transcribed Date: 03/21/2025 10:25 ET Result [facility] Juan Francisco Stuart MD IM DXA PROCEDURES Final Result * Falls Risk Assessment (01/03/2024) [facility] Falls Risk Assessment abstracted Result [facility] HEALTH MAINTENANCE Final Result * Depression Screening (01/03/2024) [facility] Depression Screening abstracted Result [facility] HEALTH MAINTENANCE Final Result * Diabetes Eye Exam (06/17/2023) [facility] Diabetes: Annual Retina Eye Exam abstracted Result [facility] HEALTH MAINTENANCE Final Result * Colonoscopy (09/21/2019) [facility] Colonoscopy no interpretation , abstracted Anatomical Region Laterality Modality Other Result [facility] HEALTH MAINTENANCE Final Result * Urine Albumin Creatinine Ratio (06/06/2019) Urine Albumin Creatinine Ratio abstracted Historical Provider HEALTH MAINTENANCE Final Result * Hepatitis C Screening (06/06/2019) Hepatitis C Screening abstracted Historical Provider HEALTH MAINTENANCE Final Result * Diabetes Foot Exam (06/06/2019) Pathologist [facility] Diabetes: Annual Foot Exam abstracted Historical Provider HEALTH MAINTENANCE Final Result from Last 3 Months or Most Recently Relevant to Health Maintenance Insurance [employer] Care Teams Floating Labor Gang Supervisor Relationship Specialty Start Date End Date Juan Francisco Stuart MD [address] [place] [address] PCP - General Internal Medicine 11/17/18
--- OUTSIDE RECORDS SUMMARY | 2025-07-10 13:36 | XMS_ITS | Patient Health Record ---
Author Organization [facility] Address [address] [place] [address] Care Team Providers Care Support Services Coordinator Name Role Phone ADELINE RODGERS Primary Care Provider Reji Mcgrath [phone] Allergies No Known Allergies Results Component Value Reference Range Flag Notes Ferritin Reviewed date:07/23/2024 12:14:42 PM Interpretation: Performing Lab:[facility], [address] [place] [phone] Notes/Report: Ferritin 79 10-250 ng/mL N Vitamin B12 (Not yet reviewe d by provider) Interpretation: Performing Lab:[facility], [address] [place] [phone] Notes/Report: Vitamin B12 673 200-900 pg/mL N NORMAL 200-900 PG/ML INDETERMINATE 160-199 PG/ML DEFICIENT < 160 PG/ML Complete Blood Count Auto Di ff Reviewed date:07/23/2024 12:15:38 PM Interpretation: Performing Lab:[facility], [address] [place] [phone] Notes/Report: White Blood Count 5.9 4.8-10.8 X10*3/uL N Red Blood Count 3.93 4.20-5.50 X10*6/uL L Hemoglobin 11.1 12.0-16.0 g/dl L Hematocrit 33.4 37.0-47.0 % L Mean Corpuscular Volume 85.0 80.0-98.0 fL N Mean Corpuscular Hemoglobin 28.2 27.0-33.0 pg N Mean Corpuscular HGB Conc 33.2 31.0-35.0 g/dl N Red Cell Distribution Width 13.2 11.0-16.0 % N Platelet Count 219 160-400 X10*3/uL N Mean Platelet Volume 9.6 9.4-12.3 fL N Neutrophils Percent Auto 66.3 45-73 % N Imm Gran Pct Auto 1.4 0.0-0.4 % H Lymphocytes Percent Auto 25.5 20-40 % N Monocytes Percent Auto 5.8 2-11 % N Eosinophils Percent Auto 0.7 0-4 % N Basophils Percent Auto 0.3 0-2 % N NRBC Pct Auto 0.0 0.0-0.2 /100WBC N Neutrophils Absolute Auto 3.9 2.0-8.3 x10*3/uL N Imm Gran Abs Auto 0.08 0.00-0.03 X10*3/uL H Lymphocytes Absolute Auto 1.5 1.2-4.9 X10*3/uL N Monocytes Absolute Auto 0.3 0.1-1.2 X10*3/uL N Eosinophils Absolute Auto 0.0 0.0-0.4 X10*3/uL N Basophils Absolute Auto 0.0 0.0-0.2 X10*3/uL N NRBC Abs Auto 0.000 0.0-0.012 X10*3/uL N IRON PROFILE Reviewed date:07/23/2024 12:14:33 PM Interpretation: Performing Lab:[facility], [address] [place] [phone] Notes/Report: Iron 63 30-160 mcg/dL N Total Iron Binding Capacity 363 228-428 mcg/dL N Percent Iron Saturation 17 15-50 % N Unsaturated Iron Binding 300 Reason For Referral No Information Medications Medication SIG (Take, Route, Frequency, Duration) Notes Start Date End Date Status Isosorbide Mononitrate ER 60 MG Tablet Extended Release 24 Hour TAKE 1 TABLET BY MOUTH DAILY Oral; Duration: 90 Active Metoprolol Succinate ER 100 MG Tablet Extended Release 24 Hour TAKE 1 TABLET BY MOUTH DAILY Oral; Duration: 90 Active Atorvastatin Calcium 80 MG Tablet TAKE 1 TABLET BY MOUTH DAILY Oral; Duration: 30 Active metFORMIN HCl ER 500 MG Tablet Extended Release 24 Hour TAKE 2 TABLETS BY MOUTH TWICE DAILY WITH MEALS Oral; Duration: 90 Active Tylenol 325 MG Tablet 2 tablets Orally prn prn Active Fenofibrate 145 MG Tablet 1 tablet Orall y Once a day Active Losartan Potassium 100 MG Tablet 1 tablet Orally Once a day Active Iron (Ferrous Sulfate) 325 (65 Fe) MG Tablet 1 tablet Orally twce a day Active Social History Social History Drug/Alcohol: Social Info Question Answer Notes AUDIT-C (Standard) Did you have a drink containing alcohol in the past year? Yes How often did you have a drink containing alcohol in the past year? Never (0 point) How many drinks did you have on a typical day when you were drinking in the past year? 1 or 2 drinks (0 point) How often did you have six or more drinks on one occasion in the past year? Never (0 point) Points 0 Interpretation Negative Additional Details Category Social Info Options Details Miscellaneous: Marital status: Occupation: Works in a [employer]/ retired 12/17/2014 Caffeine: 3-4 cups per day Section Notes: Smoker; no sig. alcohol Smoker; no sig. alcohol Smoker; no sig. alcohol Smoker; no sig. alcohol Smoker; no sig. alcohol Problems Problem Type SNOMED Code ICD Code Onset Dates Problem Status W/U Status Risk Notes Problem Gastro-esophagea l reflux disease without esophagitis (467013056) Gastro-esophageal reflux disease without esophagitis (K21.9) Active confirmed Problem Diverticular disease of colon (379502844) Diverticulosis of large intestine without perforation or abscess without bleeding (K57.30) Active confirmed Problem Abnormal weight loss (318758307) Abnormal weight loss (R63.4) Active confirmed Problem Iron deficiency anemia (62448735) Iron deficiency anemia (D50.9) Active confirmed Problem Anemia (632601306) Anemia (D64.9) Active confirmed Problem Vitamin B12 deficiency (non anemic) (24189049) B12 deficiency (E53.8) Active confirmed Problem Chronic diarrhea (393831847) Chronic diarrhea (K52.9) Active confirmed Problem Fatty liver (743827440) Fatty infiltration of liver (K76.0) Active confirmed Vital Signs Blood pressure diastolic 11 mm Hg 10/03/2024 Height 63 in 10/03/2024 Blood pressure systolic 111 mm Hg 10/03/2024 Weight 125.8 lbs 10/03/2024 BMI 22.28 kg/m2 10/03/2024 Encounters Encounter Location Date Provider Diagnosis [facility] [address] [place] [address] 07/17/2024 Reji Moya [facility] [address] [place] [address] 10/03/2024 Reji Moya Anemia D64.9 ; B12 deficiency E53.8 ; Diarrhea R19.7 ; Iron deficiency anemia D50.9 ; Diverticulosis of large intestine without perforation or abscess without bleeding K57.30 ; Other hemorrhoids K64.8 ; Gastro-esophageal reflux disease without esophagitis K21.9 ; Hiatal hernia K44.9 and Fatty infiltration of liver K76.0 [facility] [address] [place] [address] 07/17/2024 Reji Moya Anemia D64.9 and B12 [...] of any further assistance in the future. 07/17/2024 Anemia (ICD-10 - D64.9) 07/17/2024 B12 deficiency (ICD-10 - E53.8) 10/03/2024 B12 deficiency (ICD-10 - E53.8) Overall, [...] assistance in the future. Plan Of Treatment Pending Test Test Name Order Date LIVER PROFILE 01/21/2024 LIVER PROFILE 06/11/2013 IRON + IBC (FE) 03/21/2024 IRON + IBC (FE) 07/17/2024 IRON + IBC (FE) 01/21/2024 IRON + IBC (FE) 01/11/2013 FERRITIN 01/11/2013 CBC w DIFF 01/11/2013 CBC w DIFF 01/21/2024 CBC w DIFF 07/17/2024 CBC w DIFF 03/21/2024 PROTHROMBIN TIME (PT, INR) 01/11/2013 HEPATITIS B PROFILE 01/11/2013 HEPATITIS C ANTIBODY 01/11/2013 [id number] (A1A) 01/11/2013 CELIAC PANEL #10 01/21/2024 CELIAC PANEL #10 02/26/2013 ENDOMYSIAL IGA 02/26/2013 MITOCHONDRIAL AB 01/11/2013 SMOOTH MUSCLE ANTIBODIES 01/11/2013 TRANSGLUTAMINASE AB IGA 02/26/2013 TRANSGLUTAMINASE AB IGG 02/26/2013 FLUOR. ANTINUCLEAR AB SCREEN (JAYLON) 12/18 Prothrombin Time INR 01/21/2024 Ferritin 01/21/2024 Ferritin 03/21/2024 Vitamin B12 03/21/2024 Vitamin B12 07/17/2024 Vitamin B12 01/21/2024 Folate 01/21/2024 US abdomen comp w elastography Future Test Test Name Order Date COLONOSCOPY 01/11/2013 UPPER GI ENDOSCOPY 01/21/2024 COLONOSCOPY 01/21/2024 Insurance Providers Payer Name Payer Address Payer Phone Subscriber Number Group Number Insured Name Patient Relationship to Insured Coverage Start Date Coverage End Date [employer] [address] [place] [address] [id number] CARYN DURAND Self - patient is the insured Medications Administered Medication Instructions Date of Administration Dosage Notes B-12 02/09/2024 1000 ug B-12 02/17/2024 1000 ug B-12 04/13/2024 1000 mL B-12 06/19/2024 1000 mL B-12 10/03/2024 1000 mL B12 02/03/2024 1000 ug B12 03/21/2024 1000 ug B12 05/17/2024 1000 mL Medical (General) History Medical History History ICD Code Screening colonoscopy 05-02-2007--1 tubu lar adenoma removed HTN Hyperlipidemia and hypertriglyceridemia Denies [place],DM,CVA,Lung disease,renal dise ase 1 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 Ko from n ephrology Hepatomegaly with fatty infi ltration, splenomegaly, [...] polyps Blood clot to lung in 10/2013--sees Dr.Ma francisco-- NIDDM COPD Iron deficiency anemia in spring Vitamin B12 deficiency with positive parietal cell antibodies but negative intrinsic factor antibodies. Colonoscopy in April 2024 was negative including biopsies, negative for microscopic colitis Upper endoscopy in April 19 revealed a moderate sized hiatal hernia but no esophagitis or Oseguera's esophagus. There was no evidence of any gastritis. Duodenal biopsies were negative for celiac disease. Negative serologies for celiac disease i n 2023 Surgical History Surgery Date(Month/Year) Complete hysterectomy Right hand surgery Cholecystectomy 04/2013 Knee surgery right 2018 Cataracts
--- OUTSIDE RECORDS SUMMARY | 2025-07-10 13:36 | XMS_ITS ---
Author Name [facility] Organization Unknown Care Team Organization Name Specialty Phone Email Start Date End Da richard [facility] 03/07/2025 [facility] ADELINE RODGERS Primary Care 05/26/2022 03/06/20 24
[2025-07-10 14:03] LABS: Hematocrit 35.6 % (37.0-47.0); Hemoglobin 11.4 g/dl (12.0-16.0); Imm Gran Abs Auto 0.04 X10*3/uL (0.00-0.03); Imm Gran Pct Auto 0.8 % (0.0-0.4); Lymphocytes Absolute Auto 1.4 X10*3/uL (1.2-4.9); Mean Corpuscular HGB Conc 32.0 g/dl (31.0-35.0); Mean Corpuscular Hemoglobin 27.0 pg (27.0-33.0); Mean Corpuscular Volume 84.4 fL (80.0-98.0); NRBC Abs Auto 0.000 X10*3/uL (0.0-0.012); NRBC Pct Auto 0.0 /100WBC (0.0-0.2); Platelet Count 211 X10*3/uL (160-400); Red Blood Count 4.22 X10*6/uL (4.20-5.50); White Blood Count 4.7 X10*3/uL (4.8-10.8)
[2025-07-10 14:18] LABS: INTERNATIONAL NORM RATIO 1.1 (0.9-1.1); Prothrombin Time 13.3 SEC (11.2-13.5)
[2025-07-10 14:36] LABS: Anion Gap 11 (12-20); Blood Urea Nitrogen 20 mg/dL (9-16); Calcium 9.3 mg/dL (8.4-10.2); Carbon Dioxide 27 mmol/L (22-29); Chloride 106 mmol/L (96-108); Estimated Glomerular Filt Rate > 60; Potassium 4.8 mmol/L (3.3-5.1); Sodium 139 mmol/L (135-145)
== END 2025-07-10 12:36 | disposition home or self-care (01) ==
LOC: HO.LAB 12:35
PROVIDERS: Absent Provider Internal Medicine Cardiovascular Disease; PCP Internal Medicine; Visit Provider Internal Medicine Nephrology
DX: I70.213 Atherosclerosis of native arteries of extremities with intermittent claudication, bilateral legs (principal); I50.9 Heart failure, unspecified
CPT/HCPCS: 36415; 80048; 85025; 85610

== ENCOUNTER 2025-07-11 11:25 | Outpatient (AMB) | payer MEDICARE, SELFPAY ==
--- OUTSIDE RECORDS SUMMARY | 2024-03-02 09:00 | XMS_ITS ---
Author Organization [facility] Address [address] [place] [id number] Care Team Providers Care Hedge Fund Principal Name Role Phone ADELINE RODGERS Primary Care Provider UnavailReji Briggs [phone] REASON FOR VISIT fe def anemia,chronic diarrhea,B12 def,abn wt loss Encounters Encounter Location Date Provider [place] [facility] [place] [address] [place] [id number] 03/02/2024 Reji Moya Plan Of Treatment No Information Progress Notes * MAN DURAND ADOB: [birth year] (74 yo F)Acc No.[id number]:03/02/2024 EGD and COL/MAC Patient: MAN GARIBAY Provider: Joe Moya MD :1950 A ge:73 Y S ex:Female Date:03/02/2024 Address:[address] [place], [place] [phone] Pcp:ADELINE RODGERS Subjective: * Chief Complaints: * f e def anemia,chronic diarrhea,B12 def,abn wt loss * The named appointment provid er may or may not be the originator of this progress note, and it is not deemed complete until electronically signed by the appointment provider. Sign off status: Pending * Provider: Joe Moya MD Date: 0 03/02/2024 Generated for Printi ng/Faxing/eTransmitting on: 1 09/11/2024 11:31 AM EST
--- OUTSIDE RECORDS SUMMARY | 2024-05-03 06:00 | XMS_ITS ---
Author Organization [facility] Address [address] [place] [address] Care Team Providers Care Medical Administrative Specialist Name Role Phone ADELINE RODGERS Primary Care Provider Reji Mcgrath Unavailable [phone] REASON FOR VISIT marilee, chronic diarrhea Problems Problem Type SNOMED Code ICD Code Onset Dates Problem Status W/U Status Risk Notes Problem Diverticular disease of colon (293105184) Diverticulosis of large intestine without perforation or abscess without bleeding (K57.30) Active confirmed Problem Gastro-esophagea l reflux disease without esophagitis (115446644) Gastro-esophageal reflux disease without esophagitis (K21.9) Active confirmed Encounters Encounter Location Date Provider Diagnosis [facility] [place] [address] [place] [phone] 05/03/2024 Reji Moya Diarrhea R19.7 ; I [...] MAN DURAND ADOB: [birth year] (74 yo F)Acc No.[id number]:05/03/2024 EGD and COL/MAC Patient: MAN GARIBAY Provider: Joe Moya MD :1950 A ge:73 Y S ex:Female Date:05/03/2024 Address:[address] [place] [address] Pcp:ADELINE RODGERS Subjective: * Chief Complaints: * [...] * Procedure Codes: 4 5380 COLONOSCOPY AND [id number] INTRVL 3+YRS PTS CLNSCP [id number] RCMND FLW-UP 10 YRS DOCD, Modifiers: 1P 39834 UPPER GI ENDOSCOPY, BIOPSY Billing Information: * Procedure Codes: 51521 COLONOSCOPY AND BIOPSY. 0529F INTRVL 3+YRS PTS CLNSCP DOCD. 0528F RCMND FLW-UP 10 YRS DOCD. Modifiers: 1P 84476 UPPER GI ENDOSCOPY, BIOPSY. * The named appointment provid er may or may not be the originator of this progress note, and it is not deemed complete until electronically signed by the appointment provider. Sign off status: Pending * Provider: Joe Moya MD Date: 1 Generated for Manoj galvan/Kimi/eTluthersmitting on: 09/11/2024 11:31 AM EST
--- OUTSIDE RECORDS SUMMARY | 2025-07-11 11:31 | XMS_ITS | Clinical Summary ---
Author Organization [facility] Address [address] [place] [address] Phone Care Team Providers Care Mat Weaver Name Role Phone Juan Francisco Stuart MD Primary Care Provider Allergies No known active allergies Medications atorvastatin [...] 2 Active Cholecalciferol (Vitamin D3) 1.25 MG (27368 UT) capsule Take 1 capsule by mouth [...] Payer ID:[id number] (NAIC) Group ID:[id number] Type:Medicare Address: [place] [phone] [employer] Care Teams Mat Weaver Relationship Specialty Start Date End Date Juan Francisco Stuart MD [address] [place], [place] [phone] PCP - General 07/29/20
--- OUTSIDE RECORDS SUMMARY | 2025-07-11 11:31 | XMS_ITS | Patient Health Record ---
Author Organization [facility] Address [address] [place] [address] Care Team Providers Care Shredder Picker Name Role Phone ADELINE RODGERS Primary Care Provider Reji cMgrath [phone] Allergies No Known Allergies Results Component Value Reference Range Flag Notes Vitamin B12 (Not yet reviewe d by provider) Interpretation: Performing Lab:[facility], [address] [place] [phone] Notes/Report: Vitamin B12 673 200-900 pg/mL N NORMAL 200-900 PG/ML INDETERMINATE 160-199 PG/ML DEFICIENT < 160 PG/ML Ferritin Reviewed date:07/23/2024 12:14:42 PM Interpretation: Performing Lab:[facility], [address] [place] [phone] Notes/Report: Ferritin 79 10-250 ng/mL N Complete Blood Count Auto Di ff Reviewed date:07/23/2024 12:15:38 PM Interpretation: Performing Lab:[facility], [address] [place] [phone] Notes/Report: White Blood Count 5.9 4.8-10.8 X10*3/uL [...] PROFILE Reviewed date:07/23/2024 12:14:33 PM Interpretation: Performing Lab:[facility], [address] [place] [phone] Notes/Report: Iron 63 30-160 mcg/dL N Total [...] Miscellaneous: Marital status: Occupation: Works in a [employer] retired 12/17/2014 Caffeine: 3-4 cups per day Section Notes: Smoker; no sig. alcohol Smoker; no sig. alcohol Smoker; no sig. alcohol Smoker; no sig. alcohol Smoker; no sig. alcohol Problems Problem Type SNOMED Code ICD Code Onset Dates Problem Status W/U Status Risk Notes Problem Gastro-esophagea l reflux disease without esophagitis (914944153) Gastro-esophageal reflux disease without esophagitis (K21.9) Active confirmed Problem Diverticular disease of colon (646295075) Diverticulosis of large intestine without perforation or abscess without bleeding (K57.30) Active confirmed Problem Abnormal weight loss (871171047) Abnormal weight loss (R63.4) Active confirmed Problem Iron deficiency anemia (10779565) Iron deficiency anemia (D50.9) Active confirmed Problem Anemia (800814070) Anemia (D64.9) Active confirmed Problem Vitamin B12 deficiency (non anemic) (73093621) B12 deficiency (E53.8) Active confirmed Problem Chronic diarrhea (273975553) Chronic diarrhea (K52.9) Active confirmed Problem Fatty liver (848705330) Fatty infiltration of liver (K76.0) Active confirmed Vital Signs Blood pressure diastolic 11 mm Hg 10/03/2024 Height 63 in 10/03/2024 Blood pressure systolic 111 mm Hg 10/03/2024 Weight 125.8 lbs 10/03/2024 BMI 22.28 kg/m2 10/03/2024 Encounters Encounter Location Date Provider Diagnosis [facility] [address] [place] [address] 07/17/2024 Reji Moya [facility] [address] [place] [address] 10/03/2024 Reji Moya Anemia D64.9 ; B12 deficiency E53.8 ; Diarrhea R19.7 ; Iron deficiency anemia D50.9 ; Diverticulosis of large intestine without perforation or abscess without bleeding K57.30 ; Other hemorrhoids K64.8 ; Gastro-esophageal reflux disease without esophagitis K21.9 ; Hiatal hernia K44.9 and Fatty infiltration of liver K76.0 [facility] [address] [place] [address] 07/17/2024 Reji Moya Anemia D64.9 and B12 [...] for allowing me to have participated in Carny's care. I shall continue to keep you [...] point, if things remain stable, I advised aCryn that she could see me again on [...] B PROFILE 01/11/2013 HEPATITIS C ANTIBODY 01/11/2013 [id number] (A1A) 01/11/2013 CELIAC PANEL #10 01/21/2024 CELIAC [...] End Date [employer] [address] [place] [address] [id number] CARYN DURAND Self - patient is the [...] adenoma removed HTN Hyperlipidemia and hypertriglyceridemia Denies [place],DM,CVA,Lung disease,renal dise ase 1 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 [...]
--- OUTSIDE RECORDS SUMMARY | 2025-07-11 11:32 | XMS_ITS | Clinical Summary ---
Author Organization 175 [facility] Address [address] [place] [address] Phone Care Team Providers Care Recreation Establishment Manager Name Role Phone Juan Francisco Stuart MD Primary Care Provider [phone] Allergies No known active allergies Medications alcohol [...] hypertension 12/19/2018 Coronary artery disease invo lving agdaagux heart without angina pectoris 11/23/2018 Mixed hyperlipidemia 11/23/2018 Encounters Date Type Department Care Team Description 04/17/2025 Results Follow-Up Internal Medicine - [place] [address] [facility] [address] [place] [address] Juan Francisco Stuart MD 04/16/2025 10:26 AM EDT - 04/16/2025 11:59 PM EDT Hospital [facility] at [address] [place] [address] Controlled type 2 diabetes mellitus without complication, without long-term current use of insulin ([facility] V24, [facility] V28); Primary hypertension; Mixed hyperlipidemia; Chronic atrial fibrillation ([facility] V24, [facility] V28); Preventative health care; Encounter for screening [...] AM EDT Office Visit Internal Medicine - [place] [address] [facility] [address] [place] [id number] Juan Francisco Stuart MD [address] [facility] [address] [place] [address] Health Maintenance Due Date Last Done Comments [...] complication, without long-term current use of insulin ([facility] V24, [facility] V28) Primary hypertension Mixed hyperlipidemia Chronic atrial fibrillation ([facility] V24, [facility] V28) Preventative health care Encounter for screening mammogram for malignant neoplasm of breast LDL CHOLESTEROL, DIRECT Routine 04/16/2025 9:58 AM EDT Controlled type 2 diabetes mellitus without complication, without long-term current use of insulin ([facility] V24, [facility] V28) Primary hypertension Mixed hyperlipidemia Chronic atrial fibrillation ([facility] V24, [facility] V28) CBC WITH AUTO DIFFERENTIAL Routine 04/16/2025 [...] [facility]amm[facility] location[facility] [address], [address] -------- FINAL REPORT -------- Dictated By: Sylvester Shahid Dictated Date: 04/16/2025 16:52 ET Assigned Physician: Sylvester Shahid Reviewed and Electronically Signed By: Sylvester Shahid Signed Date: 04/16/2025 16:57 ET Workstation ID: [id number] Transcribed By: Self Edit Transcribed Date: 04/16/2025 [...] None Computer-aided detection was employed with the UXCam AI 3-D. TISSUE DENSITY: There are scattered [...] Mammography location[facility] [address], [address] -------- FINAL REPORT -------- Dictated By: Sylvester Shahid Dictated Date: 04/16/2025 16:52 ET Assigned Physician: Sylvester Shahid Reviewed and Electronically Signed By: Sylvester Shahid Signed Date: 04/16/2025 16:57 ET Workstation ID: [id number] Transcribed By: Self Edit Transcribed Date: 04/16/2025 16:52 ET Juan Francisco Stuart MD IMG BI PROCEDURES Final Result * (ABNORMAL) Lipid panel with reflex to direct LDL (04/16/2025 9:58 AM EDT) Cholesterol 149 0 - 200 mg/dL LAB CHEMISTRY METHOD 04/16/2025 3:48 PM EDT [facility] Triglycerides 527(H) 0 - 150 mg/dL LAB CHEMISTRY METHOD 04/16/2025 3:48 PM EDT [facility] HDL 26(L) >=40 mg/dL LAB CHEMISTRY METHOD 04/16/2025 3:48 PM EDT [facility] LDL Calculated LAB CHEMISTRY METHOD 04/16/2025 3:48 PM EDT [facility] Comment: Unable to calculate when triglycerides >400 mg/dL. Triglyceride value is >= 500. Calculated LDL is not meaningful. Direct LDL has been added. VLDL Cholesterol Joce LAB CHEMISTRY METHOD 04/16/2025 3:48 PM EDT [facility] Comment:Unable to calculate when triglycerides >400 mg/dL. Non HDL Chol. (LDL+VLDL) LAB CHEMISTRY METHOD 04/16/2025 3:48 PM EDT [facility] Comment:Unable to calculate when triglycerides >400 mg/dL. Chol/HDL Ratio 5.7(H) 0.0 - 4.4 LAB CHEMISTRY METHOD 04/16/2025 3:48 PM EDT [facility] Blood Venous blood specimen / Unknown Venipuncture / Unknown 04/16/2025 9:58 AM EDT 04/16/2025 9:58 AM EDT us Juan Francisco Stuart MD LAB BLOOD ORDERABLES Final Resul t [facility] [address] [place] [address], [place] [phone] * (ABNORMAL) CBC auto differential (04/16/2025 9:58 AM EDT) WBC 6.5 4.8 - 10.8 K/mcL LAB HEMETOLOGY METHOD 04/16/2025 2:20 PM EDT [facility] RBC 4.30 3.80 - 4.80 M/mcL LAB HEMETOLOGY METHOD 04/16/2025 2:20 PM EDT [facility] Hemoglobin 12.1 11.5 - 16.0 g/dL LAB HEMETOLOGY METHOD 04/16/2025 2:20 PM EDT [facility] Hematocrit 37.2 35.0 - 47.0 % LAB HEMETOLOGY METHOD 04/16/2025 2:20 PM EDT [facility] MCV 86.1 79.0 - 98.0 FL LAB HEMETOLOGY METHOD 04/16/2025 2:20 PM EDT [facility] MCH 28.0 27.0 - 32.0 pcg LAB HEMETOLOGY METHOD 04/16/2025 2:20 PM EDT [facility] MCHC 32.5 32.0 - 37.0 g/dL LAB HEMETOLOGY METHOD 04/16/2025 2:20 PM EDT [facility] RDW 14.7 11.0 - 15.0 % LAB HEMETOLOGY METHOD 04/16/2025 2:20 PM EDT [facility] Platelets 258 130 - 400 K/mcL LAB HEMETOLOGY METHOD 04/16/2025 2:20 PM EDT [facility] MPV 9.9 7.0 - 11.0 FL LAB HEMETOLOGY METHOD 04/16/2025 2:20 PM EDT [facility] NRBC 0.0 <1.0 % LAB HEMETOLOGY METHOD 04/16/2025 2:20 PM EDT [facility] NRBC Absolute 0.00 <0.10 K/mcL LAB HEMETOLOGY METHOD 04/16/2025 2:20 PM EDT [facility] Neutrophils Relative 68.3 % [facility] Lymphocytes Relative 24.4 % [facility]OLOG[facility] Monocytes Relative 5.6 % LAB HEMETOLOGY METHOD 04/16/2025 2:20 PM [facility] Eosinophils Relative 0.5 % LAB HEMETOLOGY METHOD 04/16/2025 2:20 PM EDT [facility] Basophils Relative 0.3 % LAB HEMETOLOGY METHOD 04/16/2025 2:20 PM [facility] Immature Granulocytes Relative 0.9 % LAB HEMETOLOGY METHOD 04/16/2025 2:20 PM [facility] Neutrophils Absolute 4.43 1.50 - 7.00 K/mcL LAB HEMETOLOGY METHOD 04/16/2025 2:20 PM [facility] Lymphocytes Absolute 1.58 1.00 - 5.00 K/mcL LAB HEMETOLOGY METHOD 04/16/2025 2:20 PM T [facility] Monocytes Absolute 0.36 0.20 - 1.00 K/mcL LAB HEMETOLOGY METHOD 04/16/2025 2:20 PM [facility] Eosinophils Absolute 0.03 0.00 - 0.50 K/mcL LAB HEMETOLOGY METHOD 04/16/2025 2:20 PM T [facility] Basophils Absolute 0.02 0.00 - 0.20 K/mcL LAB HEMETOLOGY METHOD 04/16/2025 2:20 PM [facility] Immature Granulocytes Absolute 0.06(H) 0.00 - 0.03 K/mcL LAB HEMETOLOGY METHOD 04/16/2025 2:20 PM [facility] Blood Venous blood specimen / Unknown Venipuncture / Unknown 04/16/2025 9:58 AM EDT 04/16/2025 9:58 AM EDT us Juan Francisco Stuart MD LAB BLOOD ORDERABLES Final Resul t Performing Organization Address City/[facility]/ZIP Co de Phone Number [facility] [address] [place] [address], [place] [phone] * Thyroid stimulating hormone (04/16/2025 9:58 AM EDT) Pathologist [facility] [place] TSH 1.53 0.40 - 4.00 mcIU/mL LAB CHEMISTRY METHOD 04/16/2025 4:44 PM EDT [facility] Blood Venous blood specimen / Unknown Venipuncture / Unknown 04/16/2025 9:58 AM EDT 04/16/2025 9:58 AM EDT us Juan Francisco Stuart MD LAB BLOOD ORDERABLES Final Resul t Performing Organization Address City/[facility]/ZIP Co de Phone Number [facility] [address] [place] [address], [place] [phone] * LDL cholesterol, direct (04/16/2025 9:58 AM EDT) [facility] LDL Direct 69 <=100 mg/dL LAB CHEMISTRY METHOD 04/16/2025 9:29 PM EDT [facility] Blood Venous blood specimen / Unknown Venipuncture / Unknown 04/16/2025 9:58 AM EDT 04/16/2025 9:58 AM EDT us Juan Francisco Stuart MD LAB BLOOD ORDERABLES Final Resul t Performing Organization Address City/[facility]/ZIP Co de Phone Number [facility] [address] [place] [address], [place] [phone] * Hemoglobin A1c (04/16/2025 9:58 AM EDT) Pathologist [facility] [place] Hemoglobin A1C 5.3 <6.5 % LAB CHEMISTRY METHOD 04/17/2025 10:44 AM EDT [facility] Mean Bld Glu Estim. 105 mg/dL LAB CHEMISTRY METHOD 04/17/2025 10:44 AM [facility] Blood Venous blood specimen / Unknown Venipuncture / Unknown 04/16/2025 9:58 AM EDT 04/16/2025 9:58 AM EDT us Juan Francisco Stuart MD LAB BLOOD ORDERABLES Final Resul t [facility] [address] [place] [address], [place] [phone] * Comprehensive metabolic panel (04/16/2025 9:58 AM EDT) Sodium 133 133 - 145 mmol/L LAB CHEMISTRY METHOD 04/16/2025 3:39 PM [facility] Potassium 5.0 3.5 - 5.5 mmol/L LAB CHEMISTRY METHOD 04/16/2025 3:39 PM [facility] Chloride 101 96 - 110 mmol/L LAB CHEMISTRY METHOD 04/16/2025 3:39 PM [facility] CO2 25 21 - 32 mmol/L LAB CHEMISTRY METHOD 04/16/2025 3:39 PM [facility] Anion Gap 7 3 - 11 LAB CHEMISTRY METHOD 04/16/2025 3:39 PM [facility] Glucose 95 70 - 100 mg/dL LAB CHEMISTRY METHOD 04/16/2025 3:39 PM [facility] BUN 19 5 - 25 mg/dL LAB CHEMISTRY METHOD 04/16/2025 3:39 PM [facility] Creatinine 0.96 0.50 - 1.10 mg/dL LAB CHEMISTRY METHOD 04/16/2025 3:39 PM [facility] eGFR 62 >=60 mL/min/1. 73m2 LAB CHEMISTRY METHOD 04/16/2025 3:39 PM [facility] Comment:Calculation based on the Chronic Kidney Disease Epidemiology Collaboration (CKD-EPI) equation refit without adjustment for race. BUN/Creatinine Ratio 19.8 LAB CHEMISTRY METHOD 04/16/2025 3:39 PM EDT [facility] Calcium 9.3 8.5 - 10.5 mg/dL LAB CHEMISTRY METHOD 04/16/2025 3:39 PM [facility] AST (SGOT) 32 10 - 42 unit/L LAB CHEMISTRY METHOD 04/16/2025 3:39 PM T [facility] ALT (SGPT) 22 10 - 60 unit/L LAB CHEMISTRY METHOD 04/16/2025 3:39 PM T [facility] Alkaline Phosphatase 58 42 - 121 unit/L LAB CHEMISTRY METHOD 04/16/2025 3:39 PM [facility] Total Protein 7.6 6.0 - 8.0 g/dL LAB CHEMISTRY METHOD 04/16/2025 3:39 PM EDT [facility] Albumin 4.1 3.2 - 5.0 g/dL LAB CHEMISTRY METHOD 04/16/2025 3:39 PM [facility] Total Bilirubin 0.5 0.0 - 1.4 mg/dL LAB CHEMISTRY METHOD 04/16/2025 3:39 PM T [facility] Blood Venous blood specimen / Unknown Venipuncture / Unknown 04/16/2025 9:58 AM EDT 04/16/2025 9:58 AM EDT us Juan Francisco Stuart MD LAB BLOOD ORDERABLES Final Resul t [facility] [address] [place] [address], [place] [phone] * BD Bone Density DXA Axial Skeleton (03/21/2025 10:08 AM EDT) Anatomical Region Laterality Modality Wrist, Hip, L-spine Bone Densito metry 03/21/2025 10:2 5 AM EDT Impressions 03/21/2025 10:26 AM EDT 1. Osteopenia. 2. FRAX analysis yields a 10-year probability of major osteoporotic fracture of 16.4% and a 10-year probability of hip fracture of 3.3%. Code 83441 -------- FINAL REPORT -------- Dictated By: Filiberto Patterson Dictated Date: 03/21/2025 10:25 ET Assigned Physician: Filiberto Patterson Reviewed and Electronically Signed By: Filiberto Patterson Signed Date: 03/21/2025 10:26 ET Workstation ID: [id number] Transcribed By: Self Edit Transcribed Date: 03/21/2025 [...] is 102% of that of young normals aex798% of that of age matched controls. This yields a T-score of 0.2 and aZ-score of 2.2 and there is therefore no evidence of osteoporosis orosteopenia here. The mean bone mineral density of the femurs bilaterally is 0.813 gm/[id number] is 81% of that of young normals [...] probability of hip fracture of 3.3%. Code 44517 -------- FINAL REPORT -------- Dictated By: Filiberto Patterson Dictated Date: 03/21/2025 10:25 ET Assigned Physician: Filiberto Patterson Reviewed and Electronically Signed By: Filiberto Patterson Signed Date: 03/21/2025 10:26 ET Workstation ID: [id number] Transcribed By: Self Edit Transcribed Date: 03/21/2025 10:25 ET Result [facility] Juan Francisco Stuart MD IM DXA PROCEDURES Final Result * Falls Risk Assessment (01/03/2024) [facility] Falls Risk Assessment abstracted Result [facility] HEALTH MAINTENANCE Final Result * Depression Screening (01/03/2024) [facility] Depression Screening abstracted Result [facility] HEALTH MAINTENANCE Final Result * Diabetes Eye Exam (06/17/2023) [facility] Diabetes: Annual Retina Eye Exam abstracted Result [facility] HEALTH MAINTENANCE Final Result * Colonoscopy (09/21/2019) [facility] Colonoscopy no interpretation , abstracted Anatomical Region Laterality Modality Other Result [facility] HEALTH MAINTENANCE Final Result * Urine Albumin Creatinine Ratio (06/06/2019) Urine Albumin Creatinine Ratio abstracted Historical Provider HEALTH MAINTENANCE Final Result * Hepatitis C Screening (06/06/2019) Hepatitis C Screening abstracted Historical Provider HEALTH MAINTENANCE Final Result * Diabetes Foot Exam (06/06/2019) Pathologist [facility] Diabetes: Annual Foot Exam abstracted Historical Provider HEALTH MAINTENANCE Final Result from Last 3 Months or Most Recently Relevant to Health Maintenance Insurance [employer] Care Teams Recreation Establishment Manager Relationship Specialty Start Date End Date Juan Francisco Stuart MD [address] [facility] [address] [place] [address] PCP - General Internal Medicine 11/17/18
--- NOTE | 2025-07-11 12:01 | MHC.OFFVIS ---
Vital Signs 07/11/25 12:02 Height 5 ft 3 in Weight 122 lb BMI 21.6 BP 124/62 Blood Pressure Location Rt brachial Position Sitting Pulse 77 Pulse Source Pulse Oximeter Pulse Oximetry (%) 95 Oxygen Delivery Method Room Air Intake Visit Reasons: Hypertension [employer] Required: No Accompanied by: Self / Same As Patient Allergies No Known Allergies Allergy (Verified 07/11/25 12:03) HPI Comments Details: I had the pleasure of seeing Caryn in follow up of her unilateral small kidney and hypertension. She has vascular disease but does not have any active symptoms. She has H/O CAD and angiogram had showed collaterals. She does not have any chest pain, SOB, PND, orthopnea, pedal edema or syncope. She is still continuing to smoke. Her BP has been at goal. She is not a diabetic. She is not on any SGLT2i but on metformin. She does not take NSAID's and maintain good hydration. She is still smoking. She is due to undergo angioplasty and stenting of her LLE for PAD [facility] Medical History Nicotine dependence, cigarettes, uncomplicated HTN (hypertension) T2DM (type 2 diabetes mellitus) CAD (coronary artery disease) Mixed hyperlipidemia Peripheral vascular disease Kidney anomaly, congenital H/O blood clots Surgical History History of cholecystectomy H/O: hysterectomy H/O hand surgery History of tonsillectomy History of cataract surgery Family History Father CVD (cardiovascular disease) Mother CVD (cardiovascular disease) Brother CVD (cardiovascular disease) Sister CVD (cardiovascular disease) Maternal Grandmother Diabetes Other No family history of cancer Social History Household Members: Family and Children Housing: House Are you a primary administrator health care facility to a significant other at home: Yes (screen tender helper for niece) Do you presently have visiting nurse or other home services: No Patient Tobacco Use Status: Current everyday Tobacco user Cigarette Packs Per Day: 1 Cigarettes Per Day: 10 service: No Current occupational status: retired Review of Systems Const All systems reviewed & are unremarkable except as noted in HPI and below Physical Exam Vital Signs: Last Vital Signs Pulse 77 07/11/25 12:02 BP 124/62 07/11/25 12:02 Pulse Ox 95 07/11/25 12:02 Oxygen Delivery Method Room Air 07/11/25 12:02 BMI result Body Mass Index 21.6 Const General: comfortable and no acute distress Orientation/consciousness: patient oriented x3 HEENT Head: Yes normocephalic Mouth: Normal oral and palatal mucosa present Eyes EOM: EOMs intact bilaterally Neck Neck: Yes supple Resp Auscultation: clear to auscultation bilaterally Cardio Jugular venous distension: no JVD Rate: regular rate GI Palpation (GI): Soft to palpation Auscultation: normal bowel sounds General: Yes no CVA tenderness Back/Spine/Pelvis Back: no CVA tenderness Skin General skin exam: no rashes or lesions noted Neuro General: patient oriented x3 and moves all extremities Extrem General: Yes no pedal edema Assessment & Plan Assessment & Plan (1) HTN (hypertension): Code(s): I10 - Essential (primary) hypertension Category: Medical Qualifiers: Hypertension type: renovascular hypertension Qualified Code(s): I15.0 - Renovascular hypertension (2) Small kidney, unilateral: Code(s): N27.0 - Small kidney, unilateral Category: Medical Plan 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 She has generalized vascular disease including PAD and CAD. She is a diabetic as well. She does not have any significant proteinuria. She is tolerating ARB with stable renal function. Her BP is at goal. She is a great candidate for SGLT2 i. I did not make any medication changes today. F/U lab work ordered. Answered all questions Orders: Orders Creatinine 1 Year I15.0 - Renovascular hypertension, N27.0 - Small kidney, unilateral Blood Urea Nitrogen 1 Year I15.0 - Renovascular hypertension, N27.0 - Small kidney, unilateral Protein Creatinine Ratio, Ur 1 Year I15.0 - Renovascular hypertension, N27.0 - Small kidney, unilateral Electrolytes 1 Year I15.0 - Renovascular hypertension, N27.0 - Small kidney, unilateral Coding Level of Care Code Est Pt Level 4 (50927) Diagnoses Renovascular hypertension I15.0 Hypertension type: renovascular hypertension Small kidney, unilateral N27.0
[2025-07-11 12:02] VITALS: BP 124/62; PULSE 77; O2SAT 95; BMI 21.6
== END 2025-07-11 12:17 | disposition home or self-care (01) ==
LOC: HO.HKA 11:26
PROVIDERS: PCP Internal Medicine; Visit Provider Internal Medicine Nephrology
DX: I15.0 Renovascular hypertension (principal); N27.0 Small kidney, unilateral
CPT/HCPCS: 99214

== ENCOUNTER → 2025-07-11 11:25 | Outpatient (BNVA) | payer MEDICARE, SELFPAY | PROVIDERS: PCP Internal Medicine; Visit Provider Internal Medicine Nephrology | DX: I15.0 Renovascular hypertension (principal); N27.0 Small kidney, unilateral; I25.10 Atherosclerotic heart disease of native coronary artery without angina pectoris; F17.210 Nicotine dependence, cigarettes, uncomplicated; E11.51 Type 2 diabetes mellitus with diabetic peripheral angiopathy without gangrene; Z79.84 Long term (current) use of oral hypoglycemic drugs | CPT/HCPCS: 99212 ==

== ENCOUNTER 2025-07-18 16:01 | Outpatient (REF) | payer MEDICARE, SELFPAY ==
--- OUTSIDE RECORDS SUMMARY | 2024-03-02 09:00 | XMS_ITS ---
Author Organization [facility] Address [address] [place] [phone] Care Team Providers Care Pocket Assembler Name Role Phone ADELINE RODGERS Primary Care Provider UnavailReji Briggs [phone] REASON FOR VISIT fe def anemia,chronic diarrhea,B12 def,abn wt loss Encounters Encounter Location Date Provider Diagnosis [facility] [place] [address] [place] [id number] 03/02/2024 Reji Moya Plan Of Treatment No Information Progress Notes * MAN DURAND ADOB: [birth year] (74 yo F)Acc No.[id number]:03/02/2024 EGD and COL/MAC Patient: MAN GARIBAY Provider: Joe Moya MD :1950 A ge:73 Y S ex:Female Date:03/02/2024 Address:[address] [place], [place] [phone] Pcp:ADELINE RODGERS Subjective: * Chief Complaints: * f e def anemia,chronic diarrhea,B12 def,abn wt loss * The named appointment provid er may or may not be the originator of this progress note, and it is not deemed complete until electronically signed by the appointment provider. Sign off status: Pending * Provider: Joe Moya MD Date: 0 03/02/2024 Generated for Printi ng/Faxing/eTransmitting on: 1 04:04 PM EST
--- OUTSIDE RECORDS SUMMARY | 2024-05-03 06:00 | XMS_ITS ---
Author Organization [facility] Address [address] [place] [address] Care Team Providers Care Electrical Sign Wirer Name Role Phone ADELINE RODGERS Primary Care Provider Reji Mcgrath Unavailable [phone] REASON FOR VISIT marilee, chronic diarrhea Problems Problem Type SNOMED Code ICD Code Onset Dates Problem Status W/U Status Risk Notes Problem Diverticular disease of colon (180017187) Diverticulosis of large intestine without perforation or abscess without bleeding (K57.30) Active confirmed Problem Gastro-esophagea l reflux disease without esophagitis (692070072) Gastro-esophageal reflux disease without esophagitis (K21.9) Active confirmed Encounters Encounter Location Date Provider Diagnosis [facility] Outpatient [address] [place] [id number] 05/03/2024 Reji Moya Diarrhea R19.7 ; I brandi deficiency anemia D50.9 ; Diverticulosis of large intestine without perforation or abscess without bleeding K57.30 ; Other hemorrhoids K64.8 ; Gastro-esophageal reflux disease without esophagitis K21.9 and Hiatal hernia K44.9 Assessments Encounter Date Diagnosis (ICD Code) Assessment Notes Treatment Notes Treatment Clinical Notes Section Notes 05/03/2024 Diarrhea (ICD-10 - R19.7) 05/03/2024 Iron deficiency anemia (ICD-10 - D50.9) 05/03/2024 Diverticulosis of large intestine without perforation or abscess without bleeding (ICD-10 - K57.30) 05/03/2024 Other hemorrhoids (ICD-10 - K64.8) 05/03/2024 Gastro-esophageal reflux disease without esophagitis (ICD-10 - K21.9) 05/03/2024 Hiatal hernia (ICD-10 - K44.9) Plan Of Treatment No Information Progress Notes * MAN DURAND ADOB: [birth year] (74 yo F)Acc No.[id number]:05/03/2024 EGD and COL/MAC Patient: MAN GARIBAY Provider: Joe Moya MD :1950 A ge:73 Y S ex:Female Date:05/03/2024 Address:[address] [place] [address] Pcp:ADELINE RODGERS Subjective: * Chief Complaints: * I da, chronic diarrhea Assessment: * Assessment: 1. D iarrhea - R19.7 (Primary) 2 . I brandi deficiency anemia - D50.9 ? 3 . D iverticulosis of large intestine without perforation or abscess without bleeding - K57.30 4 . O ther hemorrhoids - K64.8 5 . G tomas-esophageal reflux disease without esophagitis - K21.9 6 . H iatal hernia - K44.9 ? Plan: * Procedure Codes: 4 5380 COLONOSCOPY AND [id number] INTRVL 3+YRS PTS CLNSCP [id number] RCMND FLW-UP 10 YRS DOCD, Modifiers: 1P 91795 UPPER GI ENDOSCOPY, BIOPSY Billing Information: * Procedure Codes: 74083 COLONOSCOPY AND BIOPSY. 0529F INTRVL 3+YRS PTS CLNSCP DOCD. 0528F RCMND FLW-UP 10 YRS DOCD. Modifiers: 1P 90282 UPPER GI ENDOSCOPY, BIOPSY. * The named appointment provid er may or may not be the originator of this progress note, and it is not deemed complete until electronically signed by the appointment provider. Sign off status: Pending * Provider: Joe Moya MD Date: Generated for Manoj galvan/Kimi/eTluthersmitting on: 04:04 PM EST
--- NOTE | ~2025-07-18 | CT_ITS ---
EXAMINATION: CT LUNG SCREENING HISTORY: F17.210 - Nicotine dependence, cigarettes, uncomplicated TECHNIQUE: Low dose axial images were obtained from the sternal notch to upper abdomen without IV contrast per standard departmental protocol. Sagittal and coronal reformatted images were also obtained and reviewed. One or more of the following techniques was used for dose reduction: Automated exposure control, adjustment of the mA and/or kV according to patient size, use of iterative reconstruction technique. DLP: 46 mGy-cm COMPARISON: Previous chest CT scans most recent May 2024 FINDINGS: Lungs: There is centrilobular and paraseptal and probable emphysema. There is mild bronchiectasis seen in both lower lobes. There is a bullous or cystic change or atypical appearing cysts seen, largest measures 3.5 cm the left lower lobe axial image 92 series 3. Just superior to this there is a smaller atypical cystic area with question increasing associated perivascular 7 x 7 mm left lower lobe nodule axial image 79 series 3. This does not appear appreciably changed compared to recent exam 2023 however does appear increased measuring 5.5 cm in longitudinal dimension sagittal reconstructed image 59 series 6 and coronal reconstructed image 109 series 5 compared to 2.4 mm on August 2021 exam. There are increased peripheral or subpleural reticular markings and attenuation suggestive of interstitial lung disease. Central airways are clear. Scattered separate solid calcified and noncalcified pulmonary nodules are stable. Largest pulmonary nodule measures 3 mm in the right upper lobe axial image 58 series. Coronary Calcification: severe Aortic Arch Calcification: severe Additional Chest Findings: Normal heart size. Normal caliber thoracic aorta. There is no pleural or pericardial effusion. No enlarged mediastinal or axillary lymphadenopathy is identified. Visualized upper abdomen: Severe atherosclerotic disease. Slightly enlarged spleen similar to prior exam. Small calcifications in the liver unchanged. Atrophic appearing left kidney. Probable right upper pole renal stone. Multiple calcifications in the left kidney, question vascular calcifications. Degenerative changes of the spine. T11 vertebral body compression fracture. This is new in the interval from 2023 exam. There is increased subchondral sclerosis on the left side of the T11 superior endplate and the fracture may be recent. 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 This is gradually increasing compared to previous exams. Multiple areas of cystic change or atypical appearing cysts. Sagittally increasing 7 x 7 x 5.5 mm solid perivascular nodule in the left lower lobe associated with an atypical cyst. Consider surgical consultation versus continued chest CT follow-up, tissue sampling or PET/CT. Separate scattered small calcified and noncalcified pulmonary nodules measuring up to 3 mm are stable. Severe coronary artery and aortic calcification. T11 vertebral body compression fracture new in the interval from 2023 and may be recent. LUNG-RADS ASSESSMENT: Lung-RADS 4A: Suspicious Electronically signed by: Francesca Patel MD 07/20/2025 10:34 AM [facility]
--- OUTSIDE RECORDS SUMMARY | 2025-07-18 16:04 | XMS_ITS | Patient Health Record ---
Author Organization [facility] Address [address] [place] [address] Care Team Providers Care Strap Stitcher Name Role Phone ADELINE RODGERS Primary Care Provider Reji Mcgrath [phone] Allergies No Known Allergies Results Component Value Reference Range Flag Notes IRON PROFILE Reviewed date:07/23/2024 12:14:33 PM Interpretation: Performing Lab:[facility], [address] [place] [phone] Notes/Report: Iron 63 30-160 mcg/dL N Total Iron Binding Capacity 363 228-428 mcg/dL N Percent Iron Saturation 17 15-50 % N Unsaturated Iron Binding 300 Complete Blood Count Auto Di ff Reviewed date:07/23/2024 12:15:38 PM Interpretation: Performing Lab:[facility], [address] [place] [phone] Notes/Report: White Blood Count 5.9 4.8-10.8 X10*3/uL [...] NRBC Abs Auto 0.000 0.0-0.012 X10*3/uL N Reason For Referral No Information Medications Medication [...] Miscellaneous: Marital status: Occupation: Works in a [employer]/ retired 12/17/2014 Caffeine: 3-4 cups per day Section Notes: Smoker; no sig. alcohol Smoker; no sig. alcohol Smoker; no sig. alcohol Smoker; no sig. alcohol Smoker; no sig. alcohol Problems Problem Type SNOMED Code ICD Code Onset Dates Problem Status W/U Status Risk Notes Problem Gastro-esophagea l reflux disease without esophagitis (695213566) Gastro-esophageal reflux disease without esophagitis (K21.9) Active confirmed Problem Diverticular disease of colon (026019861) Diverticulosis of large intestine without perforation or abscess without bleeding (K57.30) Active confirmed Problem Abnormal weight loss (591545653) Abnormal weight loss (R63.4) Active confirmed Problem Iron deficiency anemia (78976308) Iron deficiency anemia (D50.9) Active confirmed Problem Anemia (455405491) Anemia (D64.9) Active confirmed Problem Vitamin B12 deficiency (non anemic) (74952452) B12 deficiency (E53.8) Active confirmed Problem Chronic diarrhea (457772991) Chronic diarrhea (K52.9) Active confirmed Problem Fatty liver (927051296) Fatty infiltration of liver (K76.0) Active confirmed Vital Signs Blood pressure diastolic 11 mm Hg 10/03/2024 Height 63 in 10/03/2024 Blood pressure systolic 111 mm Hg 10/03/2024 Weight 125.8 lbs 10/03/2024 BMI 22.28 kg/m2 10/03/2024 Encounters Encounter Location Date Provider Diagnosis [facility] [address] [place] [address] 10/03/2024 Reji Moya Anemia D64.9 ; B12 [...] your office if that is more convenient. Carny was comfortable with this plan. Thank you [...] B PROFILE 01/11/2013 HEPATITIS C ANTIBODY 01/11/2013 [id number] (A1A) 01/11/2013 CELIAC PANEL #10 01/21/2024 CELIAC [...] End Date [employer] [address] [place] [phone] [id number] CARYN DURAND Self - patient is the [...] adenoma removed HTN Hyperlipidemia and hypertriglyceridemia Denies PA,DM,CVA,Lung disease,renal dise ase 1 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 [...]
== END 2025-07-18 16:02 | disposition home or self-care (01) ==
LOC: HO.CT 16:01
PROVIDERS: PCP Internal Medicine; Visit Provider Physician Assistant Medical
DX: I70.213 Atherosclerosis of native arteries of extremities with intermittent claudication, bilateral legs (principal); F17.210 Nicotine dependence, cigarettes, uncomplicated
CPT/HCPCS: 71271

== ENCOUNTER → 2025-07-18 16:03 | Outpatient (BNV) | payer MEDICARE, SELFPAY | PROVIDERS: PCP Internal Medicine; Visit Provider Radiology Diagnostic Radiology | DX: F17.210 Nicotine dependence, cigarettes, uncomplicated (principal) | CPT/HCPCS: 71271 ==